=== PATIENT | female | born 1950 ===

== ENCOUNTER → 2025-04-17 13:25 | Outpatient (REF) | payer MEDICARE, SELFPAY | LOC: CLAB 13:25 | PROVIDERS: ATTENDING PHYSICIAN Surgery | DX: D50.9 Iron deficiency anemia, unspecified (principal); D49.0 Neoplasm of unspecified behavior of digestive system; K56.690 Other partial intestinal obstruction | CPT/HCPCS: 88305 ==

== ENCOUNTER 2025-04-28 06:08 | Inpatient (IN) | payer MEDICARE, SELFPAY ==
[2025-04-21 13:52] VITALS: BMI 41.2
[2025-04-21 14:19] LABS: Hematocrit 37.3 % (37.0-47.0); Hemoglobin 11.7 g/dL (12.0-16.0); Mean Corp Hgb Conc. 31.4 g/dL (33.0-37.0); Mean Corpuscular Volume 85.7 fL (81.0-99.0); Platelet Count 432 10^3/uL (130-400); Red Cell Dist. Width 14.8 % (11.5-14.5)
[2025-04-21 14:28] LABS: APTT 35.4 Sec (23.4-35.0); INR 1.02; PT 13.7 Sec (11.4-14.6)
[2025-04-21 14:43] LABS: ALT (SGPT) 17 U/L (0-35); AST (SGOT) 27 U/L (14-36); Albumin 3.6 g/dl (3.5-5.0); Alkaline Phosphatase 129 U/L (38-126); Blood Urea Nitrogen 16 mg/dl (7-17); Calcium 8.8 mg/dl (8.4-10.2); Carbon Dioxide 27 mmol/L (22-30); Chloride 99 mmol/L (98-107); Estimated Creatinine Clearance 71 ml/min; Glucose 111 mg/dl (70-99); Potassium 4.6 mmol/L (3.5-5.1); Sodium 136 mmol/L (135-145); Total Protein 6.4 g/dl (6.3-8.2); eGFR > 60.00
[2025-04-21 16:56] LABS: CEA 7.72 ng/ml
[2025-04-22 10:32] LABS: Glycohemoglobin (HgbA1c) 6.0 % (4.0-5.6)
[2025-04-28] VITALS (15 sets, daily range): BP systolic 87–118; BP diastolic 47–70; BMI 41.2
[2025-04-28] MEDS: TYLENOL 1000 MG PO (07:05)
[2025-04-28] MEDS: HEPARIN 5000 UNITS SC (07:11)
[2025-04-28] MEDS: NORMOSOL-R/PLASMALYTE-A 1000 IV ×3 (07:27→22:30)
[2025-04-28 07:40] LABS: Glucose - Point of Care 132 mg/dl (70-99)
--- NOTE | 2025-04-28 11:57 | W.OR.COLCA ---
Colon Cancer Post Op Note
Immediate Post Op
Primary Surgeon: Joseph Álvarez MD
Assistants: LEWIS Adams, KATHIA Hua CRNP, JOSE G Pardo
Pre-op Diagnosis: Cecal cancer
Post-op Diagnosis: Same
Procedure Performed: Robotic right colectomy with intracorporeal anastomosis
Anesthesia Type: GET
Specimen / Cultures: Right colon
Estimated Blood Loss: 15cc
Complications: None
Operative Findings: Bulky tumor of the cecum/acending colon
No evidence of metastatic disease
Patient's sister updated in the waiting room
Colon Resection
Colon Resection
Operation performed with curative intent: Yes
Tumor Location: Cecum
Right Hemicolectomy: Ileocolic and Right Colic
[2025-04-28 12:47] LABS: Glucose - Point of Care 188 mg/dl (70-99)
[2025-04-28] MEDS: DILAUDID 0.5 MG IV ×2 (13:10→16:18)
[2025-04-28] MEDS: TORADOL 15 MG IV ×2 (13:19→19:56)
[2025-04-28] MEDS: TYLENOL 650 MG PO ×3 (16:18→23:00)
[2025-04-28] MEDS: LIPITOR 20 MG PO (16:21)
[2025-04-28 17:29] LABS: Glucose - Point of Care 181 mg/dl (70-99)
[2025-04-28] MEDS: PEPCID 20 MG PO (19:56)
[2025-04-28] MEDS: KEFLEX 500 MG PO (19:59)
[2025-04-28 21:41] LABS: Glucose - Point of Care 215 mg/dl (70-99)
[2025-04-28] MEDS: SINGULAIR 10 MG PO (22:30)
[2025-04-28] MEDS: XALATAN OPHTHALMIC SOLUTION 1 DROP BOTH EYES (22:55)
[2025-04-28] MEDS: ANESTHETIC LOZENGE 1 LOZENGE PO (23:22)
[2025-04-29] VITALS (7 sets, daily range): BP systolic 99–133; BP diastolic 42–54; PULSE 74; O2SAT 95; BMI 42.7
[2025-04-29] MEDS: TORADOL 15 MG IV ×4 (02:30→20:25)
[2025-04-29] MEDS: TYLENOL 650 MG PO ×3 (03:05→20:24)
[2025-04-29] MEDS: DILAUDID 0.5 MG IV (06:25)
[2025-04-29 07:32] LABS: Hematocrit 30.9 % (37.0-47.0); Hemoglobin 9.7 g/dL (12.0-16.0); Mean Corp Hgb Conc. 31.4 g/dL (33.0-37.0); Mean Corpuscular Volume 86.6 fL (81.0-99.0); Nucleated Red Blood Cells % 0 %; Platelet Count 285 10^3/uL (130-400); Red Cell Dist. Width 14.6 % (11.5-14.5)
[2025-04-29 08:04] LABS: Blood Urea Nitrogen 19 mg/dl (7-17); Calcium 7.8 mg/dl (8.4-10.2); Carbon Dioxide 29 mmol/L (22-30); Chloride 98 mmol/L (98-107); Estimated Creatinine Clearance 72 ml/min; Glucose 164 mg/dl (70-99); Potassium 4.3 mmol/L (3.5-5.1); Sodium 130 mmol/L (135-145); eGFR > 60.00
[2025-04-29] MEDS: PEPCID 20 MG PO ×2 (08:11→20:24)
[2025-04-29] MEDS: ZOLOFT 100 MG PO (08:11)
[2025-04-29] MEDS: LOW STRENGTH ASPIRIN 81 MG PO (08:12)
[2025-04-29] MEDS: ANESTHETIC LOZENGE 1 LOZENGE PO (08:12)
[2025-04-29] MEDS: KEFLEX 500 MG PO ×2 (08:12→20:24)
[2025-04-29] MEDS: ZESTRIL 10 MG PO (08:13)
[2025-04-29] MEDS: ZYLOPRIM 300 MG PO (08:13)
[2025-04-29] MEDS: NORVASC 5 MG PO (08:14)
[2025-04-29] MEDS: TRIAMCINOLONE ACETONIDE 0.1% CREAM 1 APPLIC TOPICAL (08:15)
[2025-04-29] MEDS: NORMOSOL-R/PLASMALYTE-A 1000 IV ×2 (08:18→14:55)
[2025-04-29] MEDS: MYRBETRIQ EXTENDED RELEASE 50 MG PO (08:45)
[2025-04-29 08:46] LABS: Glucose - Point of Care 168 mg/dl (70-99)
--- NOTE | 2025-04-29 09:56 | W.PN.CRS1 ---
Addendum entered and electronically signed by Chris Sahni MD 04/29/25 10:07:
I saw and examined the patient independently.
The [employer]'s note was reviewed and I agree with the note, assessment and plan except where noted below.
Comment: Postoperative day 1 from a robotic right colectomy. Doing well, expected postoperative course.
DC Shields, out of bed.
Clears.
Plan as below.
Original Note:
Today's Communication / Plan
-
maintain clears
d/c shields
pain control
hold plavix at least another day
lovenox
Assessment/Plan
-
POD#1 Robotic right colectomy with intracorporeal anastomosis
WBC: 10.0, RBC 9.7 (11.7)
-Continue on clears today
-Maintain IVFs until tolerating po
-Follow labs
-Lovenox for dvt prophylaxis. TEDS/SCDS in place.
-Pain control: Tylenol/Toradol standing, Dilaudid PRN, Ultram PRN
-OOB with PT/OT
-D/C shields
-OR pathology pending
-Anticipate restarting plavix in 48 hours after OR if hemoglobin stable
-Case management for dispo planning
Subjective Data
Procedure
04/28/2025- Robotic right colectomy with intracorporeal anastomosis
Subjective Data
Date of Service: April 29, 2025
Patient states she is having some belching. Denies nausea or vomiting. No bowel function. She is sore but her pain is overall controlled.
Objective Data
-
Vital Signs
Temp Pulse Resp BP Pulse Ox
97.5 F 66 14 121/54 97
04/29/25 07:35 04/29/25 07:35 04/29/25 07:35 04/29/25 07:35 04/29/25 07:35
Intake & Output
04/28/25 04/29/25 04/30/25
06:59 06:59 06:59
Intake Total 2170 / 2170 680 / 680
Output Total 850 / 850 100 / 100
Balance 1320 / 1320 580 / 580
Intake:
Oral fluids 720 / 720 480 / 480
IV fluids (Total) 1450 / 1450
Normosol 250 250 / 250
IV piggybacks 200 / 200
Output:
Urine, Shields 850 / 850 100 / 100
Lab Results
04/29/25 06:03
04/29/25 06:03
Physical Exam
-
General: No Acute Distress and AOx3
Abdomen: Soft, Non Distended and Tender (around incision sites)
Skin: Warm and Dry
Incision: Clear, Dry, Intact
--- NOTE | 2025-04-29 11:20 | CM ---
CM following re: discharge planning.
Reviewed pt's chart, met with pt.
Pt is a 75 year old female, admitted with primary dx of Cecal cancer, s/p POD#1 Robotic right colectomy with intracorporeal anastomosis.
Pt reports she lives with brother [address], 2 steps to enter, has supportive sister who lives in [facility] and 2 daughters. Pt reports she ambulates with a walker, uses a wheelchair, has a grabber, Rollator. Pt reports she does not cook, has meals
on wheels services. Pt reports she was at [facility] in January and she preferred to go to [facility] at discharge, Other alternative SNFs options are: [facility], [facility] or [facility]. CM will make a referral to requested
SNFs after PT and OT evaluations.
PCP: Dallin Lopez
Pharmacy: [facility]
D/C plan: Preferred SNF.
CM will follow to assist pt with discharge to a preferred SNF.
[2025-04-29 12:07] LABS: Glucose - Point of Care 189 mg/dl (70-99)
[2025-04-29] MEDS: TYLENOL PO ×2 (13:24→15:58)
[2025-04-29 17:01] LABS: Glucose - Point of Care 153 mg/dl (70-99)
[2025-04-29] MEDS: LIPITOR 20 MG PO (17:33)
[2025-04-29] MEDS: LOVENOX 40 MG SC (17:35)
[2025-04-29 21:29] LABS: Glucose - Point of Care 164 mg/dl (70-99)
[2025-04-29] MEDS: SINGULAIR 10 MG PO (22:10)
[2025-04-29] MEDS: XALATAN OPHTHALMIC SOLUTION 1 DROP BOTH EYES (22:10)
[2025-04-30] MEDS: TYLENOL PO ×6 (01:00→23:57)
[2025-04-30 03:00] VITALS: BP 110/50
[2025-04-30] MEDS: TORADOL 15 MG IV ×4 (03:00→23:16)
[2025-04-30] MEDS: ULTRAM 50 MG PO (03:25)
[2025-04-30] MEDS: ANESTHETIC LOZENGE 1 LOZENGE PO ×2 (03:29→14:58)
[2025-04-30 06:00] VITALS: BMI 43.3
--- NOTE | 2025-04-30 06:00 | PTCARENOTE ---
spoke to pt about removing tele per orders and explained that she met all the criteria for removal. pt stated she felt she needed to wear tele at least overnight bc she was concerned about her cardiac activity s/p TAVR but stated she would be
willing to have it removed in the morning for day shift. Care ongoing.
[2025-04-30 07:29] VITALS: BP 127/50
[2025-04-30 07:36] LABS: Glucose - Point of Care 173 mg/dl (70-99)
[2025-04-30] MEDS: ZYLOPRIM 300 MG PO (08:21)
[2025-04-30] MEDS: NORVASC 5 MG PO (08:21)
[2025-04-30] MEDS: TYLENOL 650 MG PO ×2 (08:21→23:17)
[2025-04-30] MEDS: ZESTRIL 10 MG PO (08:21)
[2025-04-30] MEDS: LOW STRENGTH ASPIRIN 81 MG PO (08:21)
[2025-04-30] MEDS: KEFLEX 500 MG PO ×2 (08:21→23:17)
[2025-04-30] MEDS: ZOLOFT 100 MG PO (08:22)
[2025-04-30] MEDS: MYRBETRIQ EXTENDED RELEASE 50 MG PO (08:22)
[2025-04-30] MEDS: PEPCID 20 MG PO ×2 (08:22→23:17)
[2025-04-30 08:45] LABS: Hematocrit 30.4 % (37.0-47.0); Hemoglobin 9.5 g/dL (12.0-16.0); Mean Corp Hgb Conc. 31.3 g/dL (33.0-37.0); Mean Corpuscular Volume 88.1 fL (81.0-99.0); Nucleated Red Blood Cells % 0 %; Platelet Count 304 10^3/uL (130-400); Red Cell Dist. Width 14.9 % (11.5-14.5)
[2025-04-30 09:08] LABS: Blood Urea Nitrogen 18 mg/dl (7-17); Calcium 7.8 mg/dl (8.4-10.2); Carbon Dioxide 31 mmol/L (22-30); Chloride 98 mmol/L (98-107); Estimated Creatinine Clearance 82 ml/min; Glucose 149 mg/dl (70-99); Potassium 3.8 mmol/L (3.5-5.1); Sodium 134 mmol/L (135-145); eGFR > 60.00
[2025-04-30] MEDS: LASIX 20 MG PO (10:00)
[2025-04-30] MEDS: TRIAMCINOLONE ACETONIDE 0.1% CREAM 1 APPLIC TOPICAL (10:01)
--- NOTE | 2025-04-30 10:06 | W.PN.CRS1 ---
Today's Communication / Plan
-
Pain management
Assessment/Plan
-
75 yo female with cecal cancer now POD#2 Robotic right colectomy with intracorporeal anastomosis
WBC: 10.0, Hb 9.5 (9.7, 11.7)
AFVSS
Having good bowel recovery
Pain management still an issue, requiring IV narcotic
Mild LE edema
Plan:
-Advance to LRD
-IVFs off now, will give prn dosage of lasix.
-Follow labs
-Lovenox for dvt prophylaxis. TEDS ordered/SCDS when in bed
-Pain control: Tylenol/Toradol standing, Dilaudid PRN, Ultram PRN
-OOB with PT/OT
-OR pathology pending
-Continue baby ASA
-Follow blood sugars on SSI while off Ozempic
-Case management for dispo planning
Subjective Data
Procedure
04/28/2025- Robotic right colectomy with intracorporeal anastomosis
Subjective Data
Date of Service: April 30, 2025
Pt seen and examined at bedside with Dr. Sahni. Jaylon n/v. Feels like she got 'run over by truck' but felt about the same yesterday as well. Passing gas and was able to have a bm as well. Voiding without difficulty. Note BLLE mild edema
Objective Data
-
Vital Signs
Temp Pulse Resp BP Pulse Ox
97.5 F 72 17 118/58 96
04/30/25 07:29 04/30/25 08:21 04/30/25 07:29 04/30/25 10:00 04/30/25 08:35
Intake & Output
04/29/25 04/30/25 05/01/25
06:59 06:59 06:59
Intake Total 2170 / 2170 680 / 680
Output Total 850 / 850 600 / 600
Balance 1320 / 1320 80 / 80
Intake:
Oral fluids 720 / 720 480 / 480
IV fluids (Total) 1450 / 1450
Normosol 250 250 / 250
IV piggybacks 200 / 200
Output:
Urine, Gordon 850 / 850 600 / 600
Other:
Number of approximated MODERATE 1
amounts of urine
Lab Results
04/30/25 07:59
04/30/25 07:59
Physical Exam
-
General: No Acute Distress and AOx3
Abdomen: Soft, Non Distended and Tender (around incision sites)
Extremities: No Calf Tenderness and Other (mild BLLE edema)
Skin: Warm and Dry
Incision: Clear, Dry, Intact
[2025-04-30 11:39] VITALS: BP 115/46
[2025-04-30 12:41] LABS: Glucose - Point of Care 123 mg/dl (70-99)
[2025-04-30] MEDS: NOVOLOG FLEXPEN-LOW RESISTANCE SC ×2 (12:41→16:46)
[2025-04-30 15:00] VITALS: BP 105/36
[2025-04-30 16:46] LABS: Glucose - Point of Care 139 mg/dl (70-99)
[2025-04-30] MEDS: LIPITOR 20 MG PO (17:43)
[2025-04-30] MEDS: LOVENOX 40 MG SC (17:44)
[2025-04-30 19:01] VITALS: BP 132/81
[2025-04-30 21:48] LABS: Glucose - Point of Care 150 mg/dl (70-99)
[2025-04-30] MEDS: SINGULAIR 10 MG PO (23:16)
[2025-04-30] MEDS: XALATAN OPHTHALMIC SOLUTION 1 DROP BOTH EYES (23:17)
[2025-04-30 23:18] VITALS: BP 112/42
[2025-04-30] MEDS: DESENEX/MITRAZOL/ZEASORB 1 APPLIC TOPICAL (23:18)
[2025-05-01] MEDS: TORADOL IV (01:52)
[2025-05-01] MEDS: TYLENOL PO ×2 (04:29→15:58)
[2025-05-01 06:00] VITALS: BMI 42.2
[2025-05-01] MEDS: DILAUDID 0.5 MG IV (06:17)
[2025-05-01 07:45] VITALS: BP 120/47
[2025-05-01 07:45] LABS: Glucose - Point of Care 112 mg/dl (70-99)
[2025-05-01] MEDS: NOVOLOG FLEXPEN-LOW RESISTANCE SC ×2 (08:23→12:37)
[2025-05-01] MEDS: TORADOL 15 MG IV ×3 (08:28→20:10)
[2025-05-01] MEDS: MYRBETRIQ EXTENDED RELEASE 50 MG PO (08:29)
[2025-05-01] MEDS: TYLENOL 650 MG PO ×3 (08:29→20:09)
[2025-05-01] MEDS: ZESTRIL 10 MG PO (08:29)
[2025-05-01] MEDS: ZOLOFT 100 MG PO (08:29)
[2025-05-01] MEDS: PEPCID 20 MG PO ×2 (08:29→20:09)
[2025-05-01] MEDS: KEFLEX 500 MG PO ×2 (08:29→20:09)
[2025-05-01] MEDS: ANESTHETIC LOZENGE 1 LOZENGE PO ×2 (08:29→13:02)
[2025-05-01] MEDS: LOW STRENGTH ASPIRIN 81 MG PO (08:30)
[2025-05-01] MEDS: DESENEX/MITRAZOL/ZEASORB 1 APPLIC TOPICAL ×2 (08:30→20:09)
[2025-05-01] MEDS: ZYLOPRIM 300 MG PO (08:30)
[2025-05-01] MEDS: TRIAMCINOLONE ACETONIDE 0.1% CREAM 1 APPLIC TOPICAL (08:30)
[2025-05-01] MEDS: NORVASC 5 MG PO (08:30)
--- NOTE | 2025-05-01 10:02 | CM ---
Addendum entered by Leora Hoffman 05/01/25 14:05:
transfer can be arranged pending physician assessment for tomorrow.
Addendum entered by Leora Hoffman 05/01/25 14:01:
Patient accepted by [facility] for tomorrow admission. CM will update physician and patient.
Original Note:
Patient referrals sent to requested SNF options as relayed by prior CM; [facility], [facility] and [facility]. CM will await responses.
--- NOTE | 2025-05-01 10:35 | W.PN.CRS1 ---
Today's Communication / Plan
-
Discharge.
Assessment/Plan
-
POD 3.
1. tolerating LRD.
2. vitals fine.
3. incisions looked good.
4. resume Plavix and discharge. Holding on Eliquis for 30 day option on discharge due to fall risk.
Subjective Data
Procedure
04/28/2025- Robotic right colectomy with intracorporeal anastomosis
Subjective Data
Date of Service: May 01, 2025
Tolerating diet.
Objective Data
-
Vital Signs
Temp Pulse Resp BP Pulse Ox
97.5 F 66 18 120/47 94
05/01/25 07:45 05/01/25 08:30 05/01/25 07:45 05/01/25 08:30 05/01/25 07:45
Intake & Output
04/30/25 05/01/25 05/02/25
06:59 06:59 06:59
Intake Total 680 / 680 780 / 780
Output Total 600 / 600
Balance 80 / 80 780 / 780
Intake:
Oral fluids 480 / 480 780 / 780
IV piggybacks 200 / 200
Output:
Urine, Gordon 600 / 600
Other:
How many times incontinent 2
SATURATED amount urine
Number of approximated MODERATE 1 1
amounts of urine
Number of approximated LARGE 1
amounts of urine
Lab Results
04/30/25 07:59
04/30/25 07:59
Physical Exam
-
General: No Acute Distress
Chest: Clear
Cardiovascular: Regular Rate & Rhythm
Abdomen: Non Distended and Non Tender (incisional)
Extremities: No Calf Tenderness
Incision: Clear, Dry, Intact and No Skin Erythema
[2025-05-01] MEDS: PLAVIX 75 MG PO (10:55)
--- NOTE | 2025-05-01 11:04 | PN.CDI ---
CDI
- -
CDI:
Physician Documentation Request
Admit Date: 04/28/25 06:08
Dear Doctor Efren,
Please review the following and provide your response in the progress notes.
Clinical Indicators:
Height: 5'6
Weight: 261 lbs
BMI: 42.2
Other Clinical Notes: Botanical Technical Officer indicates obesity
If possible, please provide an associated diagnosis related to the abnormal BMI, such as:
Morbid obesity due to excess calories
BMI is not significant
Other (please specify)
Use of terms such as suspected, likely, concern for, or probable (associated with a specific diagnosis that is being evaluated, monitored, or treated as if it exists) are acceptable and can be coded in the inpatient setting, when documented at the
time of discharge.
Thank you,
Jacques George RN
CDI Specialist
Please use your independent medical judgment in providing your response.
[2025-05-01 11:32] LABS: Glucose - Point of Care 96 mg/dl (70-99)
[2025-05-01 15:07] VITALS: BP 122/42
[2025-05-01 16:53] LABS: Glucose - Point of Care 176 mg/dl (70-99)
[2025-05-01] MEDS: LIPITOR 20 MG PO (17:33)
[2025-05-01] MEDS: NOVOLOG FLEXPEN-LOW RESISTANCE 1 UNITS SC (17:33)
[2025-05-01] MEDS: LOVENOX 40 MG SC (17:33)
[2025-05-01] MEDS: SINGULAIR 10 MG PO (21:18)
[2025-05-01] MEDS: XALATAN OPHTHALMIC SOLUTION 1 DROP BOTH EYES (21:18)
[2025-05-01 21:46] LABS: Glucose - Point of Care 207 mg/dl (70-99)
[2025-05-01 23:00] VITALS: BP 136/50
[2025-05-02] MEDS: ULTRAM 100 MG PO (00:06)
[2025-05-02] MEDS: TYLENOL 650 MG PO ×5 (00:06→20:25)
[2025-05-02] MEDS: TORADOL 15 MG IV ×4 (01:57→20:26)
[2025-05-02] MEDS: TYLENOL PO ×2 (04:13→23:47)
[2025-05-02] MEDS: TESSALON PERLES 100 MG PO ×3 (05:09→16:41)
[2025-05-02 07:20] VITALS: BP 140/56
[2025-05-02 07:28] LABS: Glucose - Point of Care 116 mg/dl (70-99)
[2025-05-02] MEDS: ATIVAN 0.25 MG PO ×2 (08:59→22:36)
[2025-05-02] MEDS: ZYLOPRIM 300 MG PO (08:59)
[2025-05-02] MEDS: MYRBETRIQ EXTENDED RELEASE 50 MG PO (08:59)
[2025-05-02] MEDS: PEPCID 20 MG PO ×2 (09:00→20:25)
[2025-05-02] MEDS: KEFLEX 500 MG PO ×2 (09:00→20:26)
[2025-05-02] MEDS: ZESTRIL 10 MG PO (09:00)
[2025-05-02] MEDS: PLAVIX 75 MG PO (09:00)
[2025-05-02] MEDS: NORVASC 5 MG PO (09:00)
[2025-05-02] MEDS: ZOLOFT 100 MG PO (09:01)
[2025-05-02] MEDS: TRIAMCINOLONE ACETONIDE 0.1% CREAM 1 APPLIC TOPICAL (09:01)
[2025-05-02] MEDS: LOW STRENGTH ASPIRIN 81 MG PO (09:01)
[2025-05-02] MEDS: NOVOLOG FLEXPEN-LOW RESISTANCE SC (09:02)
[2025-05-02] MEDS: DESENEX/MITRAZOL/ZEASORB 1 APPLIC TOPICAL ×2 (09:02→20:27)
[2025-05-02] MEDS: ANESTHETIC LOZENGE 1 LOZENGE PO ×2 (09:03→16:41)
--- NOTE | 2025-05-02 09:19 | W.PN.CRS1 ---
Today's Communication / Plan
-
Robitussin
SNF
Assessment/Plan
-
POD 4.
1. tolerating regular.
2. vitals fine.
3. incisions looked good.
4. On Plavix and ASA Holding on Eliquis for 30 day option on discharge due to fall risk.
5. Robittusin prescribed for cough.
6. Discharge to SNF today.
Subjective Data
Procedure
04/28/2025- Robotic right colectomy with intracorporeal anastomosis
Subjective Data
Date of Service: May 02, 2025
Patient states she has a bad cough. She still has some pain but it is controlled. She is having bowel movements and flatus. Denies nausea or vomiting.
Objective Data
-
Vital Signs
Temp Pulse Resp BP Pulse Ox
98.3 F 72 16 124/47 94
05/02/25 07:20 05/02/25 09:00 05/02/25 07:20 05/02/25 09:00 05/02/25 07:20
Intake & Output
05/01/25 05/02/25 05/03/25
06:59 06:59 06:59
Intake Total 780 / 780 1440 / 1440
Balance 780 / 780 1440 / 1440
Intake:
Oral fluids 780 / 780 1440 / 1440
Other:
How many times incontinent 2
SATURATED amount urine
Number of approximated MODERATE 1 2
amounts of urine
Number of approximated LARGE 2
amounts of urine
Lab Results
04/30/25 07:59
04/30/25 07:59
Physical Exam
-
General: No Acute Distress and AOx3
Abdomen: Soft, Non Distended and Tender (mild around incisions)
Skin: Warm and Dry
Incision: Clear, Dry, Intact
--- NOTE | 2025-05-02 11:39 | CM ---
Addendum entered by Nina Huang 05/02/25 15:20:
Update- d/c cancelled.
Message sent to SNF via [facility], Spoke with [facility] via phone call, aware of cancelled d/c. Reports beds are tight and will have to review tomorrow.
Addendum entered by Nina Huang 05/02/25 11:59:
Patient scheduled for 5:00 p.m. ambulance transport, update to [facility] at [facility].
Original Note:
ZAYNAB reviewed chart, patient seen bedside, for d/c today to [facility].
Patient reports she has been coughing green mucus, reviewed with Nurse.
Patient aware will require ambulance transport, IMM verbally reviewed, provided with copy, placed in chart.
ZAYNAB spoke with [facility] at [facility], has bed available for patient.
Plan; [facility], ambulance transport
[facility]
Report: [phone]
[2025-05-02] MEDS: SAFETUSSIN DM (SUGAR/ALCOHOL FREE) 200 MG PO ×2 (12:51→20:26)
[2025-05-02 12:53] LABS: Glucose - Point of Care 162 mg/dl (70-99)
[2025-05-02] MEDS: LASIX 20 MG PO (12:53)
[2025-05-02] MEDS: NOVOLOG FLEXPEN-LOW RESISTANCE 1 UNITS SC ×2 (12:54→17:50)
[2025-05-02 15:30] VITALS: BP 147/51
--- NOTE | 2025-05-02 15:48 | CON.HOSP ---
Consultation
-
Date/Time Consultation Requested: 05/02/25
Date/Time Consultation Performed: 05/02/25
Requesting Provider: Dr Álvarez
Performing Provider: Dr Jose Chiu
Reason for Consultation: SOB
Family Physician
-
Family Physician: Dallin Lopez
Chief Complaint
-
Shortness of breath
History of Present Illness
Patient was admitted 04/28/2025 robotic right colectomy with intracorporeal anastomosis for cecal cancer.
We are consulted today for symptom of shortness of breath.
Patient states since Thursday she started to have sore throat, runny nose and cough which is getting more productive now thick phlegm with at times is green. No fever or chills. She then started to have associated shortness of breath. People have
heard her to be wheezy. Denies any chest pains, palpitations, fever or chills.
Patient says she has a history of asthma on inhalers. No history of COPD or emphysema. Lifelong non-smoker. No recent flares. Uses as needed albuterol inhaler at home.
She had TAVR in 2023. Denies history of CAD. She remembers having a cardiac catheterization prior to TAVR.. She was then told she has a bundle branch block. Preadmission EKG showed a left bundle branch block.
December this year she was admitted to hospital because she was having lower extremity edema and she was also diagnosed with cellulitis of the leg. She was told it is lymphedema. She was told that she did not have CHF at that point. She was given
Lasix and was discharged to rehab where and she had issues with low blood pressure and elevated BUN on the diuretics were discontinued. She uses as needed Lasix at home for weight gain.
Since surgery she started to notice lower extremity edema again. Her baseline weight is 255 pounds. She went up to 268 pounds then she had attributed that to fluids given in the postsurgery days. Yesterday her weight was 261 pounds.
No nausea vomiting. Tolerating diet.
Medical History
Past Medical History
Past Medical History: Reports Asthma, Cancer (Colon cancer), GERD, HTN, Hypercholesterolemia, NIDDM and Psychiatric
Additional Past Medical History:
Overactive bladder
Past Surgical History: Reports and Other (AVR in 2023)
Social History
Tobacco: Non-smoker
Alcohol: None
Drug: None
Living: With Family
Family History
Family History: Reviewed & Not Pertinent
Allergies / Home Medications
Allergies reflects when Allergies were last updated in [employer].
Home Medications with original date entered in [employer]
Allergy/Medication List:
Allergies
Allergy/AdvReac Type Severity Reaction Status Date / Time
adhesive tape Allergy Skin Tear Verified 04/28/25 07:01
povidone-iodine (From Allergy Redness Verified 04/28/25 07:01
Betadine) and itching
red dye Allergy Hives, Verified 04/28/25 07:01
Blotchy
soap Allergy Redness, Verified 04/28/25 07:01
Itchy
Home Medications
Comfry Oil 1 applic topical PRN PRN dry skin 04/27/25
Comfry Salve 1 dose topical PRN PRN dry skin 04/27/25
Instaflex 1 tab PO DAILY 04/27/25
Lymph Move 5 ml PO DAILY 04/27/25
acetaminophen 650 mg tablet,extended release 1,300 mg PO PRN PRN Pain 04/27/25
albuterol sulfate 90 mcg/actuation aerosol inhaler 2 puff inhalation PRN PRN SOB, wheezes 04/27/25
allopurinol 300 mg tablet 300 mg PO DAILY 04/27/25
amlodipine 5 mg tablet 5 mg PO DAILY 04/27/25
atorvastatin 20 mg tablet 20 mg PO QPM 04/27/25
cephalexin 500 mg tablet 500 mg PO BID 04/27/25
clopidogrel 75 mg tablet (Plavix) 75 mg PO DAILY 04/27/25
coQ10 (ubiquinol) 100 mg capsule 300 mg PO HS 04/27/25
dandelion root 0.7 ml PO DAILY 04/27/25
famotidine 20 mg tablet 20 mg PO BID 04/27/25
fluconazole 100 mg tablet 100 mg PO DAILY PRN Yeast infection 04/27/25
furosemide 20 mg tablet (Lasix) 20 mg PO DAILY PRN Lymphedema 04/27/25
latanoprost (PF) 0.005 % eye drops in a dropperette 1 drp BOTH EYES HS 04/27/25
lisinopril 10 mg tablet 10 mg PO DAILY 04/27/25
lorazepam 0.5 mg tablet 0.25 mg PO BID PRN Anxiety 04/27/25
mirabegron 50 mg tablet,extended release 24 hr (Myrbetriq) 50 mg PO DAILY 04/27/25
montelukast 10 mg tablet 10 mg PO HS 04/27/25
multivitamin with minerals (Hair,Skin and Nails tablet) 2 tab PO DAILY 04/27/25
semaglutide 0.25 mg or 0.5 mg (2 mg/3 mL) subcutaneous pen injector (Ozempic) 0.25 mg SC FR 04/27/25
sertraline 100 mg tablet 100 mg PO DAILY 04/27/25
tizanidine 2 mg tablet 2 mg PO TID PRN Spasms 04/27/25
triamcinolone acetonide 0.1 % topical cream 1 applic topical DAILY Legs 04/27/25
vit C 250 mg-vit E 90 mg-zinc 40 mg-copper 1 [id number] capsule (PreserVision AREDS-2) 1 tab PO BID 04/27/25
tramadol 50 mg tablet 50 mg PO Q4HPRN PRN pain #20 tabs 05/01/25
tramadol 50 mg tablet 50 mg PO Q6H PRN pain #20 tabs 05/01/25
Review of Systems
-
A 12 point Review of Systems was completed except as noted: Yes
Physical Exam
Vital Signs
Vital Signs
Temp Pulse Resp BP Pulse Ox
98.3 F 74 19 139/50 94
05/02/25 07:20 05/02/25 12:53 05/02/25 10:04 05/02/25 12:53 05/02/25 12:26
Physical Exam
General: No Apparent Distress
Respiratory: Wheezes (bl), Rales (Few in right base), Rhonchi (BL) and Non Labored Respirations; Negative Accessory Resp Muscle Use
Cardiac: S1/S2 and Regular Rhythm; Negative Tachycardia
GI: Soft
Musculoskeletal: Edema (BL LE 1+)
Neuro: AO x 3 and No Motor Deficits; Negative Slurred Speech or Facial Droop
Psych: Calm and Intact Judgement; Negative Confused or Agitated
Laboratory Results
-
Laboratory Results
04/30/25 07:59
04/30/25 07:59
PT 13.7 Sec (11.4-14.6) 04/21/25 13:02
INR 1.02 04/21/25 13:02
APTT 35.4 Sec (23.4-35.0) H 04/21/25 13:02
Total Bilirubin 0.8 mg/dl (0.2-1.3) 04/21/25 13:02
AST 27 U/L (14-36) 04/21/25 13:02
ALT 17 U/L (0-35) 04/21/25 13:02
Alkaline Phosphatase 129 U/L (38-126) H 04/21/25 13:02
Data Reviewed
-
Diagnostic Radiology: Report Reviewed by Me (cxr)
Impression / Plan
-
Shortness of breath with upper respiratory symptoms of sore throat, nasal congestion, cough with productive phlegm. She is also having active bronchospasm. I suspect this may be more acute bronchitis. She has underlying asthma. When you have
increased weight gain, lower extremity edema, chest x-ray raising concern for increased pulmonary vascular markings rule out concurrent CHF.
Will start checking weights daily.
Check a BMP, CBC and a BNP. Check an EKG.
Check COVID and flu
Started on empirical doxycycline. Sputum cultures.
Start scheduled DuoNebs. If continues persistent wheezing and no evidence of CHF will consider short course of steroids.
I would increase the dose of Lasix to 40 mg if elevated BNP and wt doesnt improve; follow her weights.
Hx of Asthma not COPD per pt- tx acute bronchitis as above and if no improvement add short course of steroids.
Status post right hemicolectomy for cecal cancer-continue the postop surgical care per surgical team.
Diabetes mellitus-blood sugars mostly under goal-continue sliding scale insulin.
Primary hypertension-continue with amlodipine and lisinopril.
Thank you for consultation, will continue to follow along with you.
[2025-05-02 16:10] VITALS: BP 147/51; PULSE 78; O2SAT 95
[2025-05-02 16:48] LABS: Glucose - Point of Care 186 mg/dl (70-99)
[2025-05-02] MEDS: DUONEB 3 ML INH ×2 (16:50→19:34)
[2025-05-02 17:01] LABS: Blood Urea Nitrogen 18 mg/dl (7-17); Calcium 7.9 mg/dl (8.4-10.2); Carbon Dioxide 30 mmol/L (22-30); Chloride 102 mmol/L (98-107); Estimated Creatinine Clearance 72 ml/min; Glucose 149 mg/dl (70-99); Potassium 3.6 mmol/L (3.5-5.1); Sodium 137 mmol/L (135-145); eGFR > 60.00
[2025-05-02 17:09] LABS: Troponin I < 0.012 ng/ml
[2025-05-02 17:24] LABS: COVID-19 Antigen Negative (Negative)
[2025-05-02] MEDS: LIPITOR 20 MG PO (17:48)
[2025-05-02] MEDS: LOVENOX 40 MG SC (17:48)
[2025-05-02] MEDS: VIBRAMYCIN 100 MG PO (20:25)
[2025-05-02] MEDS: SINGULAIR 10 MG PO (22:36)
[2025-05-02] MEDS: XALATAN OPHTHALMIC SOLUTION 1 DROP BOTH EYES (22:37)
[2025-05-02 22:58] LABS: Glucose - Point of Care 173 mg/dl (70-99)
[2025-05-02 23:18] VITALS: BP 128/45
[2025-05-03] MEDS: TORADOL 15 MG IV ×2 (02:02→08:39)
[2025-05-03] MEDS: TYLENOL PO (04:01)
[2025-05-03 04:12] VITALS: BMI 43.9
[2025-05-03 07:10] VITALS: BP 143/48
[2025-05-03 07:32] LABS: Glucose - Point of Care 106 mg/dl (70-99)
[2025-05-03] MEDS: DUONEB 3 ML INH ×4 (07:38→19:34)
[2025-05-03 08:20] VITALS: BP 141/55; PULSE 85; O2SAT 94
[2025-05-03] MEDS: NOVOLOG FLEXPEN-LOW RESISTANCE SC (08:29)
[2025-05-03] MEDS: PEPCID 20 MG PO ×2 (08:30→21:13)
[2025-05-03] MEDS: ZYLOPRIM 300 MG PO (08:30)
[2025-05-03] MEDS: PLAVIX 75 MG PO (08:32)
[2025-05-03] MEDS: VIBRAMYCIN 100 MG PO ×2 (08:32→21:13)
[2025-05-03] MEDS: LOW STRENGTH ASPIRIN 81 MG PO (08:32)
[2025-05-03] MEDS: ZOLOFT 100 MG PO (08:32)
[2025-05-03] MEDS: KEFLEX 500 MG PO ×2 (08:32→21:13)
[2025-05-03] MEDS: MYRBETRIQ EXTENDED RELEASE 50 MG PO (08:37)
[2025-05-03] MEDS: NORVASC 5 MG PO (08:37)
[2025-05-03] MEDS: TYLENOL 650 MG PO ×4 (08:38→21:13)
[2025-05-03] MEDS: ZESTRIL 10 MG PO (08:38)
[2025-05-03] MEDS: DESENEX/MITRAZOL/ZEASORB 1 APPLIC TOPICAL ×2 (08:39→21:19)
[2025-05-03] MEDS: TRIAMCINOLONE ACETONIDE 0.1% CREAM 1 APPLIC TOPICAL (08:39)
[2025-05-03] MEDS: ANESTHETIC LOZENGE 1 LOZENGE PO (08:41)
[2025-05-03] MEDS: TESSALON PERLES 100 MG PO (08:41)
--- NOTE | 2025-05-03 10:12 | W.PN.HOSP.TC ---
Today's Communication/Plan
-
And IV Decadron.
Continue with nebulizers and doxycycline
Add IV Lasix and follow weights daily.
Assessment / Plan
Assessment / Plan
Shortness of breath with upper respiratory symptoms of sore throat, nasal congestion, cough with productive phlegm. She is also having active bronchospasm. I suspect this may be more acute bronchitis with ashtma flare.
Hx of Asthma not COPD per pt.
Seen benefit of nebulizers but still persistent with an ongoing upper respiratory symptoms.
Continue with nebulizers and doxycycline. Add steroids and follow the progress.
Possible mild CHF component with preserved EF. Patient weight is about her baseline weight of 255 pounds. Chest x-ray raises concern for increased interstitial markings. BNP is just about the normal range for her age. EKG with no acute ST-T
changes compared to before. Troponins were negative. No chest pain or anginal symptoms. With switch to IV Lasix and follow weights daily.
Status post right hemicolectomy for cecal cancer-continue the postop surgical care per surgical team.
Diabetes mellitus-blood sugars mostly under goal-continue sliding scale insulin.
Primary hypertension-continue with amlodipine and lisinopril.
Would hold on discharge today and see the response to steroids and IV Lasix.
Discussed with the general surgery.
Anticipated Discharge: 24 - 48 hours
Subjective/Interval History
-
Date of Service: May 03, 2025
Patient still with ongoing cough and wheezing. Denies shortness of breath.
Still thick phlegm.
Denies any chest pain, palpitations. No nausea vomiting. No fever or chills.
Objective Data
-
Vital Signs:
Vital Signs
Temp Pulse Resp BP Pulse Ox
98.1 F 73 18 143/48 95
05/03/25 07:10 05/03/25 08:38 05/03/25 07:39 05/03/25 08:38 05/03/25 07:39
I&O
05/02/25 05/03/25 05/04/25
06:59 06:59 06:59
Intake Total 1440 / 1440 1220 / 1220
Balance 1440 / 1440 1220 / 1220
Physical Exam
-
General: No Apparent Distress
Respiratory: Wheezes (Extensive bilateral wheeze) and Non Labored Respirations; Negative Accessory Resp Muscle Use
Cardiac: Regular Rhythm and S1/S2; Negative Tachycardic
GI: Soft
Musculoskeletal: Edema, Right Lower Extrem and Edema, Left Lower Extrem (1+ BL)
Neuro: AO x 3
Psych: Calm; Negative Confused
Data Reviewed
-
Medical Tests (Nuc Med, Echo etc): Report Reviewed by me (EKG)
Labs: Labs Reviewed by me
--- NOTE | 2025-05-03 11:25 | W.PN.CRS1 ---
Today's Communication / Plan
-
Lasix and IV steroids for bronchospasm
Surgically doing well
Hold rehab another day
Assessment/Plan
-
POD 5.
1. tolerating regular.
2. vitals fine.
3. incisions looked good.
4. On Plavix and ASA Holding on Eliquis for 30 day option on discharge due to fall risk.
5. Appreciate hospitalist for bronchospasm workup. She will require IV steroids as well as IV Lasix.
6. Hold discharge to rehab another day until bronchospasm has resolved.
Subjective Data
Procedure
04/28/2025- Robotic right colectomy with intracorporeal anastomosis
Subjective Data
Date of Service: May 03, 2025
Patient states she is wheezing and feels weak. She has a cough that is green and phlegm. Otherwise she is eating okay and her abdominal pain is controlled.
Objective Data
-
Vital Signs
Temp Pulse Resp BP Pulse Ox
98.1 F 73 18 143/48 95
05/03/25 07:10 05/03/25 08:38 05/03/25 07:39 05/03/25 08:38 05/03/25 07:39
Intake & Output
05/02/25 05/03/25 05/04/25
06:59 06:59 06:59
Intake Total 1440 / 1440 1220 / 1220
Balance 1440 / 1440 1220 / 1220
Intake:
Oral fluids 1440 / 1440 1220 / 1220
Other:
Number of approximated MODERATE 2 1
amounts of urine
Number of approximated LARGE 2
amounts of urine
Lab Results
04/30/25 07:59
05/02/25 16:34
Physical Exam
-
General: No Acute Distress and AOx3
Abdomen: Soft, Non Distended and Tender
Skin: Warm
Incision: Clear, Dry, Intact
[2025-05-03] MEDS: DECADRON 4 MG IV ×2 (11:36→21:17)
[2025-05-03] MEDS: LASIX 40 MG IV (11:37)
[2025-05-03] MEDS: NOVOLOG FLEXPEN-LOW RESISTANCE 1 UNITS SC ×2 (12:21→17:45)
[2025-05-03 12:23] LABS: Glucose - Point of Care 174 mg/dl (70-99)
--- NOTE | 2025-05-03 14:00 | CM ---
ZAYNAB Kirk connected with Hospitalist Team who said that patient 'might' be ready tomorrow. ZAYNAB Kirk spoke to lianasrin Mueller at [facility] #[phone] who said they have a bed today, but not sure about tomorrow so Case Management should call
then. ZAYNAB Kirk informed the Hospitalist Team to let ZAYNAB know when patient is ready for sure. PLAN: SNF when ready at [facility].
[2025-05-03 15:25] VITALS: BP 155/59
[2025-05-03 16:07] LABS: Glucose - Point of Care 180 mg/dl (70-99)
[2025-05-03] MEDS: LOVENOX 40 MG SC (17:46)
[2025-05-03] MEDS: LIPITOR 20 MG PO (17:48)
[2025-05-03] MEDS: SINGULAIR 10 MG PO (21:13)
[2025-05-03] MEDS: XALATAN OPHTHALMIC SOLUTION 1 DROP BOTH EYES (21:19)
[2025-05-03 21:45] LABS: Glucose - Point of Care 318 mg/dl (70-99)
[2025-05-03] MEDS: ATIVAN 0.25 MG PO (22:58)
[2025-05-04] MEDS: NOVOLOG FLEXPEN 4 UNITS SC
[2025-05-04 00:06] VITALS: BP 125/53
[2025-05-04] MEDS: TESSALON PERLES 100 MG PO ×2 (01:11→21:02)
[2025-05-04] MEDS: SAFETUSSIN DM (SUGAR/ALCOHOL FREE) 200 MG PO ×2 (01:14→21:02)
[2025-05-04] MEDS: DUONEB 3 ML INH ×4 (02:26→15:55)
[2025-05-04] MEDS: ULTRAM 50 MG PO (02:58)
[2025-05-04] MEDS: TYLENOL 650 MG PO ×7 (04:16→23:26)
[2025-05-04] MEDS: DECADRON 4 MG IV ×3 (04:16→20:55)
[2025-05-04] MEDS: ANESTHETIC LOZENGE 1 LOZENGE PO ×2 (04:20→21:07)
[2025-05-04 05:15] VITALS: BMI 43.5
[2025-05-04 07:18] VITALS: BP 134/61
[2025-05-04 07:37] LABS: Glucose - Point of Care 195 mg/dl (70-99)
[2025-05-04 08:26] LABS: Blood Urea Nitrogen 16 mg/dl (7-17); Calcium 8.3 mg/dl (8.4-10.2); Carbon Dioxide 28 mmol/L (22-30); Chloride 103 mmol/L (98-107); Estimated Creatinine Clearance 94 ml/min; Glucose 216 mg/dl (70-99); Potassium 4.4 mmol/L (3.5-5.1); Sodium 135 mmol/L (135-145); eGFR > 60.00
[2025-05-04] MEDS: NOVOLOG FLEXPEN-LOW RESISTANCE 1 UNITS SC (08:38)
[2025-05-04] MEDS: KEFLEX 500 MG PO ×2 (08:39→20:56)
[2025-05-04] MEDS: MYRBETRIQ EXTENDED RELEASE 50 MG PO (08:39)
[2025-05-04] MEDS: ZYLOPRIM 300 MG PO (08:39)
[2025-05-04] MEDS: ZOLOFT 100 MG PO (08:40)
[2025-05-04] MEDS: VIBRAMYCIN 100 MG PO ×2 (08:40→20:56)
[2025-05-04] MEDS: LOW STRENGTH ASPIRIN 81 MG PO (08:40)
[2025-05-04] MEDS: NORVASC 5 MG PO (08:40)
[2025-05-04] MEDS: ZESTRIL 10 MG PO (08:40)
[2025-05-04] MEDS: PLAVIX 75 MG PO (08:41)
[2025-05-04] MEDS: PEPCID 20 MG PO ×2 (08:41→20:56)
[2025-05-04] MEDS: LASIX 40 MG IV (08:41)
[2025-05-04] MEDS: TRIAMCINOLONE ACETONIDE 0.1% CREAM 1 APPLIC TOPICAL (08:44)
[2025-05-04] MEDS: DESENEX/MITRAZOL/ZEASORB 1 APPLIC TOPICAL ×2 (08:45→20:55)
[2025-05-04] MEDS: ULTRAM 100 MG PO ×2 (09:17→17:35)
--- NOTE | 2025-05-04 09:40 | W.PN.HOSP.TC ---
Today's Communication/Plan
-
Continue with doxycycline, DuoNebs, IV steroids
Continue with IV Lasix
Ultrasound of the legs and if negative Иван wrap legs
Add Mucinex and Acapella
Assessment / Plan
Assessment / Plan
Shortness of breath with upper respiratory symptoms of sore throat, nasal congestion, cough with productive phlegm. She is also having active bronchospasm. I suspect this may be more acute bronchitis with ashtma flare.
Hx of Asthma not COPD per pt.
Ongoing wheeze but not hypoxic. No acute respiratory distress.
Continue with nebulizers and doxycycline. Added IV steroids-continue the current dose without taper with persistent symptoms.
Add scheduled Mucinex. Add Acapella.
Possible mild CHF component with preserved EF. Patient weight is about her baseline weight of 255 pounds. Chest x-ray raises concern for increased interstitial markings. BNP is just about the normal range for her age. EKG with no acute ST-T
changes compared to before. Troponins were negative. No chest pain or anginal symptoms. Added IV Lasix -improving wt. CW current dose.
BL LE edema - suspect combination of chronic dependent edema/lymphedema and CHF. Check US leg as she complaints of pain in right leg. On chronic ABX prophylaxis for cellulitis of legs. If US leg neg , иван wrap legs for edema management
Status post right hemicolectomy for cecal cancer-continue the postop surgical care per surgical team.
Diabetes mellitus-blood sugars mostly under goal-continue sliding scale insulin.
Primary hypertension-continue with amlodipine and lisinopril.
Hold discharge and continue with above treatments
DELMI RN and general surgery.
Anticipated Discharge: > 48 hours
Subjective/Interval History
-
Date of Service: May 04, 2025
Improved weight. She last 3 pound since yesterday. Still feels her legs are quite swollen. She has pain in the right leg compared to left.
Still with cough, productive phlegm, wheezing. No chest pain or palpitations. No fevers.
Denies nausea vomiting.
Objective Data
-
Labs:
Laboratory Results
05/04/25
06:40
Sodium 135
Potassium 4.4
Chloride 103
Carbon Dioxide 28
BUN 16
Creatinine 0.7
Glucose 216 H
Calcium 8.3 L
Vital Signs:
Vital Signs
Temp Pulse Resp BP Pulse Ox
97.8 F 91 18 134/61 95
05/04/25 07:18 05/04/25 07:27 05/04/25 07:27 05/04/25 07:18 05/04/25 07:27
I&O
05/03/25 05/04/25 05/05/25
06:59 06:59 06:59
Intake Total 1220 / 1220 1800 / 1800
Output Total 300 / 300
Balance 1220 / 1220 1500 / 1500
Physical Exam
-
General: No Apparent Distress
Respiratory: Wheezes (Persistent expiratory wheeze bilaterally) and Non Labored Respirations; Negative Crackles or Accessory Resp Muscle Use
Cardiac: Regular Rhythm and S1/S2; Negative Tachycardic
GI: Soft
Musculoskeletal: Edema, Right Lower Extrem (2+) and Edema, Left Lower Extrem (2+)
Neuro: AO x 3
Psych: Calm; Negative Confused
Data Reviewed
-
Labs: Labs Reviewed by me
--- NOTE | 2025-05-04 10:09 | W.PN.CRS1 ---
Today's Communication / Plan
-
continue diet
OOB
IV steriods/lasix per hospitalist
RLE doppler pending
wound RN
Assessment/Plan
-
POD #6, robotic right colectomy with acute bronchitis
Afebrile, vitals normal
1. tolerating regular.
2. Appreciate hospitalist regarding acute bronchitis treatment. On IV steroids and 40mg IV lasix.
4. On Plavix and ASA Holding on Eliquis for 30 day option on discharge due to fall risk.
5. OOB as tolerated with PT/OT
6. Wound RN for RLE sore. LE doppler ordered.
7. Hold discharge to rehab another day until bronchospasm has resolved.
Subjective Data
Procedure
04/28/2025- Robotic right colectomy with intracorporeal anastomosis
Subjective Data
Date of Service: May 04, 2025
Patient states she is still coughing a lot and didn't sleep last night. She also notes a sore on her RLE. She has no abdominal pain. She denies nasuea or vomiting. She is tolerating a diet.
Objective Data
-
Vital Signs
Temp Pulse Resp BP Pulse Ox
97.8 F 91 18 134/61 95
05/04/25 07:18 05/04/25 07:27 05/04/25 07:27 05/04/25 07:18 05/04/25 07:27
Intake & Output
05/03/25 05/04/25 05/05/25
06:59 06:59 06:59
Intake Total 1220 / 1220 1800 / 1800
Output Total 300 / 300
Balance 1220 / 1220 1500 / 1500
Intake:
Oral fluids 1220 / 1220 1800 / 1800
Output:
Urine, Voided 300 / 300
Other:
How many times incontinent 1
SATURATED amount urine
Number of approximated MODERATE 1 2
amounts of urine
Lab Results
04/30/25 07:59
05/04/25 06:40
Physical Exam
-
General: No Acute Distress and AOx3
Abdomen: Soft, Non Distended and Non Tender
Skin: Warm and Dry
Incision: Clear, Dry, Intact
[2025-05-04] MEDS: MUCINEX 600 MG PO ×2 (10:28→20:56)
[2025-05-04 11:31] LABS: Glucose - Point of Care 321 mg/dl (70-99)
--- NOTE | 2025-05-04 11:45 | WOUNDNOTE ---
COCCYX CREASE/GLUTEAL CLEFT
--- NOTE | 2025-05-04 12:27 | WOUNDNOTE ---
[facility] RN note: Patient admitted with s/p R colon resection.
See H&P for complete history.
PMH: bilateral foot reconstruction, obesity, asthma, LE lymphedema (she uses knee high Иван wraps at home), IBS, cecal cancer, urinary incontinence, arthritis, gout, skin cancer.
Wound Location and type/assessment: Patient has .3cm dry circular scab on RLE. +LE edema. R posterior lower calf with red fragile skin suspect r/t venous edema. +Pedal pulses. Coccyx/gluteal cleft MASD. Outer lower abdominal skin fold mild MASD.
Miconazole powder being used.
Appetite: on regular diet. Ate a good breakfast.
Pressure redistribution devices in place: [employer]. Patient transfers from chair to commode with walker and supervision.
Plan: Protective small silicone border foam applied to RLE very small dry scab. Miconazole powder to lower abdominal/groin, nancy/buttocks skin. Barrier ointment to nancy skin. Sacral shaped silicone border foam maintained on sacrum. Skin on heels
intact. Air chair cushion placed in recliner chair. t/c SPD and ordered bariatric air chair cushion.
Will confirm orders with Marsha Ray or Dr. Chiu and updated GISEL Amaya.
Care plan to be updated. Will sign off. Call if needed.
Note to case management requested for discharge: VN if goes home when discharged.
Recommend follow up at wound care center upon discharge if needed.
[2025-05-04] MEDS: NOVOLOG FLEXPEN-LOW RESISTANCE 4 UNITS SC (12:49)
--- NOTE | 2025-05-04 14:51 | PN.CDI ---
CDI
- -
CDI:
Physician Documentation Request
Admit Date: 04/28/25 06:08
Dear Doctor Aram,
Please review the following and provide your response in the progress notes.
Clinical Indicators:
- 05/04 PN 'Possible mild CHF component with preserved EF'
- 'BL LE edema - suspect combination of chronic dependent edema/lymphedema and CHF'
- 40mg IV Lasix given x 2
- proBNP 1280
Please clarify which of the following accurately represents the acuity of the HFpEF
Acute HFpEF
Acute on chronic HFpEF
Other (please specify)
Use of terms such as suspected, likely, concern for, or probable (associated with a specific diagnosis that is being evaluated, monitored, or treated as if it exists) are acceptable and can be coded in the inpatient setting, when documented at the
time of discharge.
Thank you,
Jacques George RN
CDI Specialist
Please use your independent medical judgment in providing your response.
[2025-05-04 15:26] VITALS: BP 115/54
[2025-05-04 16:49] LABS: Glucose - Point of Care 295 mg/dl (70-99)
[2025-05-04] MEDS: NOVOLOG FLEXPEN-LOW RESISTANCE 3 UNITS SC (17:23)
[2025-05-04] MEDS: LOVENOX 40 MG SC (17:23)
[2025-05-04] MEDS: LIPITOR 20 MG PO (17:23)
[2025-05-04] MEDS: DUONEB INH (20:09)
[2025-05-04] MEDS: XALATAN OPHTHALMIC SOLUTION 1 DROP BOTH EYES (21:02)
[2025-05-04] MEDS: SINGULAIR 10 MG PO (21:02)
--- NOTE | 2025-05-04 21:50 | PTCARENOTE ---
Pt bedtime blood sugar 304. ANTONIO jones notified and aware. No coverage ordered at this time. Care ongoing.
[2025-05-04 21:51] LABS: Glucose - Point of Care 304 mg/dl (70-99)
[2025-05-04 23:00] VITALS: BP 135/59
[2025-05-05] MEDS: DUONEB 3 ML INH ×3 (01:22→12:11)
[2025-05-05] MEDS: DECADRON 4 MG IV ×2 (03:38→13:28)
[2025-05-05] MEDS: TYLENOL 650 MG PO ×3 (03:38→18:51)
[2025-05-05 05:11] VITALS: BMI 43.0
[2025-05-05 07:10] VITALS: BP 138/74
[2025-05-05 07:42] LABS: Glucose - Point of Care 164 mg/dl (70-99)
[2025-05-05] MEDS: TYLENOL PO ×2 (08:00→20:33)
[2025-05-05 08:03] LABS: Blood Urea Nitrogen 19 mg/dl (7-17); Calcium 8.7 mg/dl (8.4-10.2); Carbon Dioxide 30 mmol/L (22-30); Chloride 100 mmol/L (98-107); Estimated Creatinine Clearance 93 ml/min; Glucose 173 mg/dl (70-99); Potassium 5.0 mmol/L (3.5-5.1); Sodium 136 mmol/L (135-145); eGFR > 60.00
[2025-05-05 08:24] LABS: Hematocrit 32.7 % (37.0-47.0); Hemoglobin 9.7 g/dL (12.0-16.0); Mean Corp Hgb Conc. 29.7 g/dL (33.0-37.0); Mean Corpuscular Volume 91.1 fL (81.0-99.0); Platelet Count 389 10^3/uL (130-400); Red Cell Dist. Width 15.7 % (11.5-14.5)
--- NOTE | 2025-05-05 08:41 | W.PN.CRS1 ---
Today's Communication / Plan
-
acute bronchitis treatment per hospitalist
looking good from surgical perspective
dispo once cleared by hospitalist
Assessment/Plan
-
POD #7, robotic right colectomy with acute bronchitis
Afebrile, vitals normal
1. tolerating regular.
2. Appreciate hospitalist regarding acute bronchitis treatment. On IV steroids and 40mg IV lasix.
4. On Plavix and ASA Holding on Eliquis for 30 day option on discharge due to fall risk.
5. OOB as tolerated with PT/OT
6. Wound RN for RLE sore. LE doppler negative.
7. Hold discharge to rehab another day until bronchospasm has resolved.
Subjective Data
Procedure
04/28/2025- Robotic right colectomy with intracorporeal anastomosis
Subjective Data
Date of Service: May 05, 2025
Patient states she has some mucus and cough still. She had a lot of phlegm yesterday, which is her main complaint. Her abdomen is sore but manageable. Denies nausea or vomiting. Tolerating a diet. Has bowel function.
Objective Data
-
Vital Signs
Temp Pulse Resp BP Pulse Ox
97.6 F 80 16 135/59 95
05/04/25 23:00 05/05/25 07:15 05/05/25 07:15 05/04/25 23:00 05/04/25 23:00
Intake & Output
05/04/25 05/05/25 05/06/25
06:59 06:59 06:59
Intake Total 1800 / 1800 2640 / 2640
Output Total 300 / 300
Balance 1500 / 1500 2640 / 2640
Intake:
Oral fluids 1800 / 1800 2640 / 2640
Output:
Urine, Voided 300 / 300
Other:
How many times incontinent 1 2
SATURATED amount urine
Number of approximated MODERATE 2 1
amounts of urine
Number of approximated LARGE 2
amounts of urine
Number of unmeasured liquid
stools
Rectum 1
Lab Results
05/05/25 06:33
05/05/25 06:33
Physical Exam
-
General: No Acute Distress and AOx3
Abdomen: Soft, Non Distended and Non Tender
Skin: Warm and Dry
Incision: Clear, Dry, Intact
[2025-05-05] MEDS: DESENEX/MITRAZOL/ZEASORB 1 APPLIC TOPICAL ×2 (10:15→22:31)
[2025-05-05] MEDS: NOVOLOG FLEXPEN-LOW RESISTANCE 1 UNITS SC (10:15)
[2025-05-05] MEDS: HYDROPHOR 1 APPLIC TOPICAL (10:16)
[2025-05-05] MEDS: ZYLOPRIM 300 MG PO (10:17)
[2025-05-05] MEDS: KEFLEX 500 MG PO ×2 (10:17→20:33)
[2025-05-05] MEDS: MUCINEX 600 MG PO ×2 (10:17→20:33)
[2025-05-05] MEDS: VIBRAMYCIN 100 MG PO ×2 (10:18→20:33)
[2025-05-05] MEDS: MYRBETRIQ EXTENDED RELEASE 50 MG PO (10:18)
[2025-05-05] MEDS: ZESTRIL 10 MG PO (10:18)
[2025-05-05] MEDS: PLAVIX 75 MG PO (10:18)
[2025-05-05] MEDS: PEPCID 20 MG PO ×2 (10:18→20:33)
[2025-05-05] MEDS: LOW STRENGTH ASPIRIN 81 MG PO (10:18)
[2025-05-05] MEDS: ZOLOFT 100 MG PO (10:18)
[2025-05-05] MEDS: NORVASC 5 MG PO (10:18)
[2025-05-05] MEDS: LASIX 40 MG IV (10:19)
[2025-05-05] MEDS: TRIAMCINOLONE ACETONIDE 0.1% CREAM 1 APPLIC TOPICAL (10:19)
[2025-05-05] MEDS: ULTRAM 100 MG PO ×2 (10:29→22:30)
[2025-05-05] MEDS: ANESTHETIC LOZENGE 1 LOZENGE PO ×2 (10:29→20:33)
[2025-05-05] MEDS: TESSALON PERLES 100 MG PO (10:30)
--- NOTE | 2025-05-05 11:28 | CM ---
Addendum entered by Marcie Herring 05/08/25 10:22:
Consult received for nebulizer - pt will return to SNF at discharge and nebulizer will be provided by the facility.
Original Note:
SNF referral sent to [facility]. No beds available for today, however it appears that patient is not ready for discharge to SNF for >48 hours.
Plan: CM to follow up for bed availability at [facility] when medically cleared for discharge.
--- NOTE | 2025-05-05 11:55 | W.PN.HOSP.TC ---
Today's Communication/Plan
-
Continue with IV steroids
Continue with IV Lasix
Continue with antibiotics
Consult pulmonary
Assessment / Plan
Assessment / Plan
Shortness of breath with upper respiratory symptoms of sore throat, nasal congestion, cough with productive phlegm. She is also having active bronchospasm. I suspect this may be more acute bronchitis with ashtma flare.
Hx of Asthma not COPD per pt.
Ongoing wheeze and coughing ;no hypoxia.
Continue with nebulizers and doxycycline. cw IV steroids-continue the current dose without taper with persistent symptoms.Obtain pulmonary input.
cw scheduled Mucinex. cw Acapella.
Possible mild CHF component with preserved EF. Patient weight is about her baseline weight of 255 pounds. Chest x-ray raises concern for increased interstitial markings. BNP is just about the normal range for her age. EKG with no acute ST-T
changes compared to before. Troponins were negative. No chest pain or anginal symptoms. Added IV Lasix -improving wt. loss 3 more pounds in 24 hours. Repeat chest x-ray today shows small bilateral pleural effusion but no further vascular
congestive changes. CW current dose IV Lasix. BMP is okay
BL LE edema - suspect combination of chronic dependent edema/lymphedema and CHF. On chronic ABX prophylaxis for cellulitis of legs. US leg neg , rigo wrap legs for edema management.
Status post right hemicolectomy for cecal cancer-continue the postop surgical care per surgical team.
Diabetes mellitus-blood sugars mostly under goal-continue sliding scale insulin.
Primary hypertension-continue with amlodipine and lisinopril.
Hold discharge and continue with above treatments
DW general surgery
Anticipated Discharge: > 48 hours
Subjective/Interval History
-
Date of Service: May 05, 2025
Patient with persistent cough and still productive of small amount of thick phlegm. Denies any fever or chills.
Denies any chest pains or palpitation.
Objective Data
-
Labs:
Laboratory Results
05/05/25
06:33
WBC 11.9 H
Hgb 9.7 L
Hct 32.7 L
Plt Count 389 D
Sodium 136
Potassium 5.0
Chloride 100
Carbon Dioxide 30
BUN 19 H
Creatinine 0.7
Glucose 173 H
Calcium 8.7
Vital Signs:
Vital Signs
Temp Pulse Resp BP Pulse Ox
97.7 F 80 16 138/74 96
05/05/25 07:10 05/05/25 07:15 05/05/25 07:15 05/05/25 07:10 05/05/25 07:10
I&O
05/04/25 05/05/25 05/06/25
06:59 06:59 06:59
Intake Total 1800 / 1800 2640 / 2640 660 / 660
Output Total 300 / 300
Balance 1500 / 1500 2640 / 2640 660 / 660
Physical Exam
-
General: No Apparent Distress
HEENT: Moist Mucous Membranes
Respiratory: Wheezes (BL expiratory) and Non Labored Respirations; Negative Accessory Resp Muscle Use
Cardiac: Regular Rhythm, S1/S2 and Carotid Bruits
Musculoskeletal: Edema, Right Lower Extrem and Edema, Left Lower Extrem
Neuro: AO x 3
Psych: Calm
Data Reviewed
-
Diagnostic Radiology: Report Reviewed by me (cxr)
Labs: Labs Reviewed by me
[2025-05-05 12:31] LABS: Glucose - Point of Care 148 mg/dl (70-99)
--- NOTE | 2025-05-05 12:44 | CON.PUL ---
Consultation
Consultation Request
Date/Time Consultation Requested: 05/05/2025
Date/Time Consultation Performed: 05/05/2025
Medical History
-
Chief Complaint: Dyspnea
History of Present Illness:
Patient is a very pleasant 75 old female with known history of asthma and newly diagnosed cecal cancer who was admitted to the hospital electively for a robotic right colectomy with anastomosis. Postop, patient developed respiratory symptoms
including sore throat, runny nose and cough with thick phlegm production which occasionally was green. Hospitalist consultation was requested and patient was started on treatment for eczema exacerbation, bronchitis as well as possible volume
overload. In view of persistent symptoms, pulmonary consultation was requested for further input.
Patient reports history of asthma since age 41, mild intermittent at baseline controlled with Singulair and as needed albuterol. Has not had a hospitalization in the last 10 years related to asthma exacerbation. Also reported history of lower
extremity lymphedema and recurrent cellulitis, on chronic suppressive therapy with Keflex.
Past Medical History
Past Medical History: Reports Asthma, Cancer (Colon cancer), GERD, HTN, Hypercholesterolemia, NIDDM
Additional Past Medical History:
Overactive bladder
Past Surgical History: Reports and Other (TAVR in 2023)
Social History
Tobacco: Non-smoker
Alcohol: None
Drug: None
Living: With Family
Family History
Family History: Reviewed & Not Pertinent
Allergies / Home Medications
Allergies
Allergy/AdvReac Type Severity Reaction Status Date / Time
adhesive tape Allergy Skin Tear Verified 04/28/25 07:01
povidone-iodine (From Allergy Redness Verified 04/28/25 07:01
Betadine) and itching
red dye Allergy Hives, Verified 04/28/25 07:01
Blotchy
soap Allergy Redness, Verified 04/28/25 07:01
Itchy
Home Medications
�Medication �Instructions �Recorded �Confirmed �Last Taken �Type
Comfry Oil 1 applic topical PRN PRN dry skin 04/27/25 04/28/25 04/27/25 History
Comfry Salve 1 dose topical PRN PRN dry skin 04/27/25 04/28/25 04/27/25 History
Instaflex 1 tab PO DAILY 04/27/25 04/27/25 Unknown History
Lymph Move 5 ml PO DAILY 04/27/25 04/27/25 Unknown History
acetaminophen 650 mg 1,300 mg PO PRN PRN Pain 04/27/25 04/27/25 Unknown History
tablet,extended release
albuterol sulfate 90 mcg/actuation 2 puff inhalation PRN PRN SOB, 04/27/25 04/27/25 Unknown History
aerosol inhaler wheezes
allopurinol 300 mg tablet 300 mg PO DAILY 04/27/25 04/28/25 04/27/25 08:00 History
amlodipine 5 mg tablet 5 mg PO DAILY 04/27/25 04/28/25 04/27/25 08:00 History
atorvastatin 20 mg tablet 20 mg PO QPM 04/27/25 04/28/25 04/27/25 08:00 History
cephalexin 500 mg tablet 500 mg PO BID 04/27/25 04/28/25 04/27/25 18:00 History
clopidogrel 75 mg tablet (Plavix) 75 mg PO DAILY 04/27/25 04/28/25 04/21/25 History
coQ10 (ubiquinol) 100 mg capsule 300 mg PO HS 04/27/25 04/28/25 04/27/25 08:00 History
dandelion root 0.7 ml PO DAILY 04/27/25 04/27/25 Unknown History
famotidine 20 mg tablet 20 mg PO BID 04/27/25 04/28/25 04/27/25 18:00 History
fluconazole 100 mg tablet 100 mg PO DAILY PRN Yeast infection 04/27/25 04/28/25 04/27/25 08:00 History
furosemide 20 mg tablet (Lasix) 20 mg PO DAILY PRN Lymphedema 04/27/25 04/28/25 Unknown History
latanoprost (PF) 0.005 % eye drops 1 drp BOTH EYES HS 04/27/25 04/27/25 Unknown History
in a dropperette
lisinopril 10 mg tablet 10 mg PO DAILY 04/27/25 04/28/25 04/27/25 08:00 History
lorazepam 0.5 mg tablet 0.25 mg PO BID PRN Anxiety 04/27/25 04/28/25 04/27/25 17:00 History
mirabegron 50 mg tablet,extended 50 mg PO DAILY 04/27/25 04/28/25 04/27/25 08:00 History
release 24 hr (Myrbetriq)
montelukast 10 mg tablet 10 mg PO HS 04/27/25 04/28/25 04/27/25 08:00 History
multivitamin with minerals 2 tab PO DAILY 04/27/25 04/28/25 04/22/25 History
(Hair,Skin and Nails tablet)
semaglutide 0.25 mg or 0.5 mg (2 0.25 mg SC FR 04/27/25 04/27/25 04/17/25 History
mg/3 mL) subcutaneous pen injector
(Ozempic)
sertraline 100 mg tablet 100 mg PO DAILY 04/27/25 04/28/25 04/27/25 08:00 History
tizanidine 2 mg tablet 2 mg PO TID PRN Spasms 04/27/25 04/28/25 04/27/25 20:00 History
triamcinolone acetonide 0.1 % 1 applic topical DAILY Legs 04/27/25 04/28/25 04/27/25 11:00 History
topical cream
vit C 250 mg-vit E 90 mg-zinc 40 1 tab PO BID 04/27/25 04/28/25 04/27/25 History
mg-copper 1 [id number]
capsule (PreserVision AREDS-2)
tramadol 50 mg tablet 50 mg PO Q4HPRN PRN pain #20 tabs 05/01/25 Unknown Rx
tramadol 50 mg tablet 50 mg PO Q6H PRN pain #20 tabs 05/01/25 04/28/25 04/27/25 03:30 Rx
Review of Systems
-
Hematologic/Lymphatic: Other (All 14 systems reviewed and negative except as stated above in the history of present illness.)
Vitals / Labs / Diagnostic Testing
Vital Signs
Temp Pulse Resp BP Pulse Ox
97.7 F 80 16 138/74 96
05/05/25 07:10 05/05/25 12:12 05/05/25 12:12 05/05/25 07:10 05/05/25 07:10
Lab Data
05/05/25 06:33
05/05/25 06:33
Microbiology
05/02/25 16:34 Nasal Swab Influenza Types A & B (RICKY) - Final
Negative for Influenza A & B, NAAT
Negative results must be combined with clinical observations
and patient history.
Nucleic Acid Amplification test (NAAT)performed on the
[employer] platform.
Diagnostic Testing:
Physical Exam
-
HEENT: Normocephalic
Cardiovascular: S1/S2 and Peripheral Edema
Respiratory: Wheeze and Rhonchi
GI: Soft and Non Distended
Neurology: Awake and Alert
Skin: Warm
General: Comfortable
Assessment
-
In brief, 75 old female s/p right hemicolectomy for newly detected cecal cancer, developed postop worsening pedal edema along with increasing cough, greenish expectoration and wheezing. Pulmonary service was consulted for further input.
#1. Dyspnea
- Multifactorial. Patient has b/l wheezing consistent with asthma exacerbation, also has purulent bronchitis and is volume overloaded on exam
- Continue diuresis, bronchodilators and Antibiotics.
#2. Acute exacerbation of Asthma
- Continue Singulair
- Add Budesonide Neb BID
- Start Albuterol qid nebulized. In view of thick and difficult to expectorate phlegm, will d/c Ipratropium
- Add 3% NS Nebulized BID for thick and difficult to expectorate mucous
- Continue Mucinex BID
- With recent surgery, minimize steroids. Added inhaled budesonide, d/c IV Dexamethasone and Start Po Prednisone in AM with the goal to use lowest dose for shortest duration
#3. Acute purulent bronchitis
- Patient has new onset greenish expectoration, thick
- No obvious pneumonic infiltrate on CXR
- Continue Doxycycline. Check Sputum culture.
#4. Acute on chronic HFpEF
- LVEF 60-65% per cardiology note, normal RV. Suspect volume overload is iatrogenic with IVF, surgery etc. Steroids also likely contributing to fluid retention.
- BNP elevated at 1280
- Patient reports weight gain as well as significant increase in pedal edema
- Continue Lasix IV
#5. H/o Chronic pedal edema/lymphedema
- Reported h/o chronic pedal edema, now significantly increased since hospitalization
- Suspect Amlodipine is also contributing to pedal edema. D/c Norvasc for now. Monitor BP
- Diurese as tolerated
- Patient has been on chronic suppressive treatment with Keflex for recurrent cellulitis per ID service as out patient.
#5. h/o Aortic stenosis
- S/p TAVR 08/2023
- Continue diuresis
Other medical diagnoses:
- Colon cancer, s/p Robotic Right hemicolectomy 04/2025
- HTN
- HLD
- DM
Total time spent on this consultation/encounter __61__ minutes which includes review of history, physical exam, medications, laboratory data, personal review of imaging, extensive review of outpatient records, discussion with care team and
respiratory therapy.
Data:
CXR 04/2025: Small bilateral pleural effusions, slightly improved from recent radiograph.
No convincing radiographic evidence for active vascular congestion.
LE US 04/2025: No DVT
[2025-05-05] MEDS: NOVOLOG FLEXPEN-LOW RESISTANCE SC (13:27)
[2025-05-05 13:55] VITALS: BP 134/57; BP 167/72; PULSE 76; O2SAT 96
[2025-05-05 15:20] VITALS: BP 135/60
[2025-05-05] MEDS: VENTOLIN NEBULES 2.5 MG INH ×2 (15:25→18:06)
[2025-05-05 15:30] VITALS: BP 129/55; PULSE 85; O2SAT 96
[2025-05-05 16:04] LABS: Glucose - Point of Care 212 mg/dl (70-99)
[2025-05-05] MEDS: PULMICORT 0.5 MG INH (18:06)
[2025-05-05] MEDS: SODIUM CHLORIDE 3% FOR INHALATION 1 VIAL INH (18:06)
[2025-05-05] MEDS: LOVENOX 40 MG SC (18:50)
[2025-05-05] MEDS: NOVOLOG FLEXPEN-LOW RESISTANCE 2 UNITS SC (18:51)
[2025-05-05] MEDS: LIPITOR 20 MG PO (18:51)
[2025-05-05 21:35] LABS: Glucose - Point of Care 219 mg/dl (70-99)
[2025-05-05] MEDS: SAFETUSSIN DM (SUGAR/ALCOHOL FREE) 200 MG PO (22:30)
[2025-05-05] MEDS: SINGULAIR 10 MG PO (22:30)
[2025-05-05] MEDS: XALATAN OPHTHALMIC SOLUTION 1 DROP BOTH EYES (22:32)
[2025-05-05 23:25] VITALS: BP 122/58
[2025-05-06] MEDS: TYLENOL 650 MG PO ×4 (00:45→20:00)
[2025-05-06] MEDS: TESSALON PERLES 100 MG PO (00:45)
[2025-05-06] MEDS: VENTOLIN NEBULES 2.5 MG INH ×5 (00:59→18:03)
[2025-05-06] MEDS: TYLENOL PO ×2 (04:58→17:35)
[2025-05-06 06:00] VITALS: BMI 43.8
[2025-05-06] MEDS: PULMICORT 0.5 MG INH ×2 (07:46→18:03)
[2025-05-06] MEDS: SODIUM CHLORIDE 3% FOR INHALATION 1 VIAL INH ×2 (07:47→18:03)
[2025-05-06 07:50] VITALS: BP 128/77
[2025-05-06] MEDS: NOVOLOG FLEXPEN-LOW RESISTANCE SC (07:54)
[2025-05-06 07:55] LABS: Glucose - Point of Care 146 mg/dl (70-99)
[2025-05-06] MEDS: MYRBETRIQ EXTENDED RELEASE 50 MG PO (08:55)
[2025-05-06] MEDS: DELTASONE 40 MG PO (08:55)
[2025-05-06] MEDS: ZOLOFT 100 MG PO (08:56)
[2025-05-06] MEDS: PEPCID 20 MG PO ×2 (08:56→20:01)
[2025-05-06] MEDS: LOW STRENGTH ASPIRIN 81 MG PO (08:56)
[2025-05-06] MEDS: ZYLOPRIM 300 MG PO (08:56)
[2025-05-06] MEDS: ZESTRIL 10 MG PO (08:56)
[2025-05-06] MEDS: MUCINEX 600 MG PO ×2 (08:56→20:00)
[2025-05-06] MEDS: LASIX 40 MG IV (08:56)
[2025-05-06] MEDS: KEFLEX 500 MG PO ×2 (08:56→20:00)
[2025-05-06] MEDS: VIBRAMYCIN 100 MG PO ×2 (08:56→20:01)
[2025-05-06] MEDS: HYDROPHOR 1 APPLIC TOPICAL (08:57)
[2025-05-06] MEDS: DESENEX/MITRAZOL/ZEASORB 1 APPLIC TOPICAL ×2 (08:57→20:01)
[2025-05-06] MEDS: TRIAMCINOLONE ACETONIDE 0.1% CREAM 1 APPLIC TOPICAL (08:58)
[2025-05-06] MEDS: PLAVIX 75 MG PO (08:58)
[2025-05-06] MEDS: ANESTHETIC LOZENGE 1 LOZENGE PO ×2 (09:09→17:51)
--- NOTE | 2025-05-06 10:14 | W.PN.HOSP.TC ---
Addendum entered and electronically signed by Sage Chiu MD 05/06/25 16:22:
Acute on chronic HFpEF
Original Note:
Today's Communication/Plan
-
CW current tx
Taper steroids per pulm
Assessment / Plan
Assessment / Plan
Shortness of breath with upper respiratory symptoms of sore throat, nasal congestion, cough with productive phlegm. She is also having active bronchospasm. I suspect this may be more acute bronchitis with ashtma flare.
Hx of Asthma not COPD per pt.
Improved wheezing. Remains room air.
Continue with nebulizers and doxycycline.
cw scheduled Mucinex. cw Acapella.
Continue with 3% sodium chloride nebulizer and steroid nebulizer. Appreciate pulmonary input.
Taper steroids per pulmonary
Possible mild CHF component with preserved EF. Patient weight is about her baseline weight of 255 pounds. Chest x-ray raises concern for increased interstitial markings. BNP is just about the normal range for her age. EKG with no acute ST-T
changes compared to before. Troponins were negative. No chest pain or anginal symptoms. Added IV Lasix -improving wt. Today's wt is probably erroneous -it was a bedscale . Repeat chest x-ray shows small bilateral pleural effusion but no
further vascular congestive changes. CW current dose IV Lasix. BMP is okay
BL LE edema - suspect combination of chronic dependent edema/lymphedema and CHF. On chronic ABX prophylaxis for cellulitis of legs. US leg neg , rigo wrap legs for edema management. Improving
Status post right hemicolectomy for cecal cancer-continue the postop surgical care per surgical team.
Diabetes mellitus-blood sugars mostly under goal-continue sliding scale insulin.
Primary hypertension-continue with amlodipine and lisinopril.
Anticipated Discharge: 24 - 48 hours
Subjective/Interval History
-
Date of Service: May 06, 2025
Starting to feel better now. Less wheezy. Denies shortness of breath at rest. Cough with thick phlegm present but no worse.
No chest pains. No dizziness. No nausea vomiting. Improved lower extremity edema.
Objective Data
-
Vital Signs:
Vital Signs
Temp Pulse Resp BP Pulse Ox
98.2 F 82 18 128/77 95
05/06/25 07:50 05/06/25 08:56 05/06/25 07:50 05/06/25 08:56 05/06/25 09:30
I&O
05/05/25 05/06/25 05/07/25
06:59 06:59 05:59
Intake Total 2640 / 2640 1196 / 1196
Balance 2640 / 2640 1196 / 1196
Physical Exam
-
General: Comfortable
Respiratory: Wheezes and Non Labored Respirations; Negative Accessory Resp Muscle Use
Cardiac: Regular Rhythm and S1/S2; Negative Tachycardic
GI: Soft
Musculoskeletal: Edema, Right Lower Extrem (Improved) and Edema, Left Lower Extrem (Improved)
Neuro: AO x 3
--- NOTE | 2025-05-06 11:01 | W.PN.CRS1 ---
Addendum entered and electronically signed by Godwin Granado MD 05/06/25 13:35:
Patient seen and examined. Agree with assessment plan as documented below.
Original Note:
Today's Communication / Plan
-
pulm managemetn
Assessment/Plan
-
75 yo pt with h/o AVR, DM, asthma and HFpEF now POD #8, robotic right colectomy for cecal cancer
Doing well from surgical standpoint with good bowel recovery; however developed asthma exacerbation with acute purulent bronchitis during her recovery
AFVSS
On steroid taper
Plan:
continue with diabetic diet
hospitalist and pulm following
C/w Plavix and ASA
OOB as tolerated with PT/OT, will likely need SNF upon discharge, CM following
dispo to SNF once cleared by medicine from cardiopulmonary standpoint and SNF bed arranged
Subjective Data
Procedure
04/28/2025- Robotic right colectomy with intracorporeal anastomosis
Subjective Data
Date of Service: May 06, 2025
Pt seen and examined at bedside with Dr. Granado. Denies n/v. Tolerating diet. Discomfort to abdomen with cough. Passing loose stools/flatus.
Objective Data
-
Vital Signs
Temp Pulse Resp BP Pulse Ox
98.2 F 82 18 128/77 95
05/06/25 07:50 05/06/25 08:56 05/06/25 07:50 05/06/25 08:56 05/06/25 09:30
Intake & Output
05/05/25 05/06/25 05/07/25
06:59 06:59 05:59
Intake Total 2640 / 2640 1196 / 1196
Balance 2640 / 2640 1196 / 1196
Intake:
Oral fluids 2640 / 2640 1196 / 1196
Other:
How many times incontinent 2
SATURATED amount urine
Number of approximated MODERATE 1 6
amounts of urine
Number of approximated LARGE 2
amounts of urine
Number of unmeasured liquid
stools
Rectum 1
Lab Results
05/05/25 06:33
05/05/25 06:33
Physical Exam
-
General: No Acute Distress and AOx3
Abdomen: Soft, Non Distended and Non Tender
Extremities: Symmetrical Edema (1-2+)
Skin: Warm and Dry
Incision: Clear, Dry, Intact (ecchymosis near umbilicus)
--- NOTE | 2025-05-06 12:08 | W.PN.PUL3 ---
Today's Communication / Plan
-
No change in prednisone dose
Continue nebulized therapy
DVT prophylaxis
Assessment
-
In brief, 75 old female s/p right hemicolectomy for newly detected cecal cancer, developed postop worsening pedal edema along with increasing cough, greenish expectoration and wheezing. Pulmonary service was consulted for further input.
#1. Dyspnea
- Multifactorial. Patient has b/l wheezing consistent with asthma exacerbation, also has purulent bronchitis and is volume overloaded on exam
- Continue diuresis, bronchodilators and Antibiotics.
#2. Acute exacerbation of Asthma
- Continue Singulair
- Continue budesonide Neb BID
- Continue albuterol qid nebulized. In view of thick and difficult to expectorate phlegm, will d/c Ipratropium
- Continue 3% NS Nebulized BID for thick and difficult to expectorate mucous
- Continue Mucinex BID
- With recent surgery, minimize steroids. Added inhaled budesonide, continue prednisone 40 mg, no change in dose for now
#3. Acute purulent bronchitis
- Patient has new onset greenish expectoration, thick
- No obvious pneumonic infiltrate on CXR
- Continue Doxycycline. C sputum culture negative to date
#4. Acute on chronic HFpEF
- LVEF 60-65% per cardiology note, normal RV. Suspect volume overload is iatrogenic with IVF, surgery etc. Steroids also likely contributing to fluid retention.
- BNP elevated at 1280
- Patient reports weight gain as well as significant increase in pedal edema
- Continue Lasix IV per primary service
#5. H/o Chronic pedal edema/lymphedema
- Reported h/o chronic pedal edema, now significantly increased since hospitalization
- Suspect Amlodipine is also contributing to pedal edema. D/c Norvasc for now. Monitor BP
- Diurese as tolerated
- Patient has been on chronic suppressive treatment with Keflex for recurrent cellulitis per ID service as out patient.
#5. h/o Aortic stenosis
- S/p TAVR 08/2023
- Continue diuresis
Other medical diagnoses:
- Colon cancer, s/p Robotic Right hemicolectomy 04/2025
- HTN
- HLD
- DM
Data:
CXR 04/2025: Small bilateral pleural effusions, slightly improved from recent radiograph.
No convincing radiographic evidence for active vascular congestion.
LE US 04/2025: No DVT
Subjective Data
-
Date of Service:
Date of Service: May 06, 2025
Subjective:
Patient currently receiving nebulized treatment. Feels about the same may be slightly better. Productive green mucus. Denies chest pain.
Objective Data
Data Reviewed
Vital Signs / I&O / Oxygen:
Vital Signs
Temp Pulse Resp BP Pulse Ox
98.2 F 70 16 128/77 96
05/06/25 07:50 05/06/25 11:19 05/06/25 11:19 05/06/25 08:56 05/06/25 11:19
Intake and Output
05/05/25 05/06/25 05/07/25
06:59 06:59 05:59
Intake Total 2640 / 2640 1196 / 1196
Balance 2640 / 2640 1196 / 1196
SaO2 96
Nasal Cannula flow liters per 2
minute
Physical Exam
General: Comfortable
HEENT: Normocephalic
Cardiovascular: S1-S2, Regular Rhythm, Murmur (n) and Rub (n)
Respiratory: Wheeze (Diffuse), Crackles (n), Rhonchi (few) and Non-Labored Respirations
GI: Soft, Non Distended and Non Tender
Neurology: Awake, Alert and No Motor Deficits
Labs/Micro/Reports
Lab Data
05/05/25 06:33
05/05/25 06:33
[2025-05-06 12:40] LABS: Glucose - Point of Care 158 mg/dl (70-99)
[2025-05-06] MEDS: NOVOLOG FLEXPEN-LOW RESISTANCE 1 UNITS SC ×2 (12:41→17:52)
[2025-05-06 15:40] VITALS: BP 132/77
[2025-05-06 17:31] LABS: Glucose - Point of Care 190 mg/dl (70-99)
[2025-05-06] MEDS: LOVENOX 40 MG SC (17:51)
[2025-05-06] MEDS: ULTRAM 100 MG PO (17:51)
[2025-05-06] MEDS: LIPITOR 20 MG PO (17:51)
[2025-05-06] MEDS: SAFETUSSIN DM (SUGAR/ALCOHOL FREE) 200 MG PO (20:00)
[2025-05-06 22:22] LABS: Glucose - Point of Care 197 mg/dl (70-99)
[2025-05-06] MEDS: SINGULAIR 10 MG PO (22:28)
[2025-05-06] MEDS: ATIVAN 0.25 MG PO (22:28)
[2025-05-06] MEDS: XALATAN OPHTHALMIC SOLUTION 1 DROP BOTH EYES (22:29)
[2025-05-06 23:30] VITALS: BP 142/63
[2025-05-07] MEDS: TYLENOL 650 MG PO ×5 (00:03→23:49)
[2025-05-07] MEDS: ULTRAM 100 MG PO (00:04)
[2025-05-07] MEDS: VENTOLIN NEBULES 2.5 MG INH ×5 (00:35→18:07)
[2025-05-07] MEDS: TYLENOL PO ×2 (04:00→13:43)
[2025-05-07 06:00] VITALS: BMI 43.2
[2025-05-07 06:23] LABS: Hematocrit 34.6 % (37.0-47.0); Hemoglobin 10.5 g/dL (12.0-16.0); Mean Corp Hgb Conc. 30.3 g/dL (33.0-37.0); Mean Corpuscular Volume 88.0 fL (81.0-99.0); Platelet Count 463 10^3/uL (130-400); Red Cell Dist. Width 16.1 % (11.5-14.5)
[2025-05-07 06:53] LABS: Blood Urea Nitrogen 35 mg/dl (7-17); Calcium 9.0 mg/dl (8.4-10.2); Carbon Dioxide 31 mmol/L (22-30); Chloride 95 mmol/L (98-107); Estimated Creatinine Clearance 73 ml/min; Glucose 117 mg/dl (70-99); Potassium 4.5 mmol/L (3.5-5.1); Sodium 134 mmol/L (135-145); eGFR > 60.00
[2025-05-07 07:00] VITALS: BP 112/58
[2025-05-07 07:10] LABS: Glucose - Point of Care 104 mg/dl (70-99)
[2025-05-07] MEDS: NOVOLOG FLEXPEN-LOW RESISTANCE SC ×2 (07:36→11:58)
[2025-05-07] MEDS: SODIUM CHLORIDE 3% FOR INHALATION 1 VIAL INH ×2 (08:12→18:07)
[2025-05-07] MEDS: PULMICORT 0.5 MG INH ×2 (08:12→18:07)
[2025-05-07] MEDS: DELTASONE 40 MG PO (09:36)
[2025-05-07] MEDS: PEPCID 20 MG PO ×2 (09:36→22:06)
[2025-05-07] MEDS: MUCINEX 600 MG PO ×2 (09:36→22:06)
[2025-05-07] MEDS: KEFLEX 500 MG PO ×2 (09:37→22:07)
[2025-05-07] MEDS: VIBRAMYCIN 100 MG PO ×2 (09:37→22:06)
[2025-05-07] MEDS: PLAVIX 75 MG PO (09:37)
[2025-05-07] MEDS: ZOLOFT 100 MG PO (09:37)
[2025-05-07] MEDS: LOW STRENGTH ASPIRIN 81 MG PO (09:37)
[2025-05-07] MEDS: LASIX 40 MG IV (09:37)
[2025-05-07] MEDS: ZYLOPRIM 300 MG PO (09:37)
[2025-05-07] MEDS: ZESTRIL 10 MG PO (09:37)
--- NOTE | 2025-05-07 09:39 | W.PN.CRS1 ---
Addendum entered and electronically signed by Godwin Granado MD 05/07/25 10:40:
Patient seen and examined. Agree with assessment plan as documented below.
Original Note:
Today's Communication / Plan
-
dispo to snf when cleared medically
Assessment/Plan
-
75 yo pt with h/o AVR, DM, asthma and HFpEF now POD #9, robotic right colectomy for cecal cancer
Doing well from surgical standpoint with good bowel recovery; however developed asthma exacerbation with acute purulent bronchitis during her recovery
AFVSS
On steroid taper with mild leukocytosis
Plan:
continue with diabetic diet
hospitalist and pulm following
C/w Plavix and ASA
OOB as tolerated with PT/OT, will likely need SNF upon discharge, CM following
dispo to SNF once cleared by medicine from cardiopulmonary standpoint and SNF bed arranged
Subjective Data
Procedure
04/28/2025- Robotic right colectomy with intracorporeal anastomosis
Subjective Data
Date of Service: May 07, 2025
Pt seen and examined at bedside with Dr. Granado. Denies n/v. Passing some loose bm's. voiding frequently on lasix. Tolerating diet well. Notes discomfort to incisions with cough.
Objective Data
-
Vital Signs
Temp Pulse Resp BP Pulse Ox
97.6 F 68 16 112/58 96
05/07/25 07:00 05/07/25 08:17 05/07/25 08:17 05/07/25 07:00 05/07/25 08:17
Intake & Output
05/06/25 05/07/25 05/08/25
06:59 05:59 06:59
Intake Total 1196 / 1196 560 / 560
Balance 1196 / 1196 560 / 560
Intake:
Oral fluids 1196 / 1196 560 / 560
Other:
How many times incontinent 2
MODERATE amount urine
How many times incontinent 3
SATURATED amount urine
Number of approximated MODERATE 6
amounts of urine
Number of approximated LARGE 1
amounts of urine
Lab Results
05/07/25 05:37
05/07/25 05:37
Physical Exam
-
General: No Acute Distress and AOx3
Abdomen: Soft, Non Distended and Tender (mild to incision)
Extremities: Symmetrical Edema (1+)
Skin: Warm and Dry
Incision: Clear, Dry, Intact (ecchymosis near umbilicus)
[2025-05-07] MEDS: DESENEX/MITRAZOL/ZEASORB 1 APPLIC TOPICAL ×2 (09:45→22:07)
[2025-05-07] MEDS: HYDROPHOR 1 APPLIC TOPICAL (09:47)
[2025-05-07] MEDS: TRIAMCINOLONE ACETONIDE 0.1% CREAM 1 APPLIC TOPICAL (09:48)
--- NOTE | 2025-05-07 10:19 | W.PN.HOSP.TC ---
Today's Communication/Plan
-
Continue with IV Lasix
Taper steroids per pulmonary
Continue doxycycline
DC planning
Assessment / Plan
Assessment / Plan
Shortness of breath with upper respiratory symptoms of sore throat, nasal congestion, cough with productive phlegm. She is also having active bronchospasm. I suspect this may be more acute bronchitis with ashtma flare.
Hx of Asthma not COPD per pt.
Improved wheezing. Remains room air.
Continue with nebulizers and doxycycline.
cw scheduled Mucinex. cw Acapella.
Continue with 3% sodium chloride nebulizer and steroid nebulizer. Appreciate pulmonary input.
Taper steroids per pulmonary
Possible mild CHF component with preserved EF. Patient weight is about her baseline weight of 255 pounds. Chest x-ray raises concern for increased interstitial markings. BNP is just about the normal range for her age. EKG with no acute ST-T
changes compared to before. Troponins were negative. No chest pain or anginal symptoms. Added IV Lasix -improving wt. Repeat chest x-ray shows small bilateral pleural effusion but no further vascular congestive changes. CW current dose IV
Lasix. BMP is okay
BL LE edema - suspect combination of chronic dependent edema/lymphedema and CHF. On chronic ABX prophylaxis for cellulitis of legs. US leg neg , rigo wrap legs for edema management. Improving
Status post right hemicolectomy for cecal cancer-continue the postop surgical care per surgical team.
Diabetes mellitus-blood sugars mostly under goal-continue sliding scale insulin.
Primary hypertension-continue with amlodipine and lisinopril.
Anticipated Discharge: 24 - 48 hours
Subjective/Interval History
-
Date of Service: May 07, 2025
Feeling improved. Less cough. Less productive phlegm. Denies any shortness of breath at rest.
No chest pain.
No fever or chills.
Objective Data
-
Labs:
Laboratory Results
05/07/25
05:37
WBC 11.5 H
Hgb 10.5 L
Hct 34.6 L
Plt Count 463 H
Sodium 134 L
Potassium 4.5
Chloride 95 L
Carbon Dioxide 31 H
BUN 35 H
Creatinine 0.9
Glucose 117 H
Calcium 9.0
Vital Signs:
Vital Signs
Temp Pulse Resp BP Pulse Ox
97.6 F 68 16 112/58 96
05/07/25 07:00 05/07/25 08:17 05/07/25 08:17 05/07/25 09:37 05/07/25 08:17
I&O
05/06/25 05/07/25 05/08/25
06:59 05:59 06:59
Intake Total 1196 / 1196 560 / 560
Balance 1196 / 1196 560 / 560
Physical Exam
-
General: Comfortable
Respiratory: Wheezes and Non Labored Respirations; Negative Accessory Resp Muscle Use
Cardiac: Regular Rhythm and S1/S2; Negative Tachycardic
Neuro: AO x 3
Psych: Calm
Data Reviewed
-
Labs: Labs Reviewed by me
[2025-05-07] MEDS: MYRBETRIQ EXTENDED RELEASE PO (10:28)
[2025-05-07] MEDS: SAFETUSSIN DM (SUGAR/ALCOHOL FREE) 200 MG PO (10:29)
[2025-05-07] MEDS: DETROL LA 4 MG PO (10:29)
[2025-05-07] MEDS: TESSALON PERLES 100 MG PO (10:31)
[2025-05-07 11:34] LABS: Glucose - Point of Care 104 mg/dl (70-99)
--- NOTE | 2025-05-07 12:30 | W.PN.PUL3 ---
Today's Communication / Plan
-
No changes
Continue treatments at rehabilitation
Consider slow taper of prednisone, decrease by 10 mg every 3 to 5 days until off
If unable to set up nebulizer at home, will require short-term follow-up in pulmonary office
Assessment
-
In brief, 75 old female s/p right hemicolectomy for newly detected cecal cancer, developed postop worsening pedal edema along with increasing cough, greenish expectoration and wheezing. Pulmonary service was consulted for further input.
#1. Dyspnea
- Multifactorial. Patient has b/l wheezing consistent with asthma exacerbation, also has purulent bronchitis and is volume overloaded on exam
- Continue diuresis, bronchodilators and Antibiotics.
#2. Acute exacerbation of Asthma
- Continue Singulair
- Continue budesonide Neb BID
- Continue albuterol qid nebulized. In view of thick and difficult to expectorate phlegm, will d/c Ipratropium
- Continue 3% NS Nebulized BID for thick and difficult to expectorate mucous
- Continue Mucinex BID
- With recent surgery, minimize steroids. Added inhaled budesonide, continue prednisone 40 mg, no change in dose for now
- Will consult case management for home nebulizer. Therapy should continue at rehabilitation
#3. Acute purulent bronchitis
- Patient has new onset greenish expectoration, thick
- No obvious pneumonic infiltrate on CXR
- Continue Doxycycline. C sputum culture negative to date
#4. Acute on chronic HFpEF
- LVEF 60-65% per cardiology note, normal RV. Suspect volume overload is iatrogenic with IVF, surgery etc. Steroids also likely contributing to fluid retention.
- BNP elevated at 1280
- Patient reports weight gain as well as significant increase in pedal edema
- Continue Lasix IV per primary service
#5. H/o Chronic pedal edema/lymphedema
- Reported h/o chronic pedal edema, now significantly increased since hospitalization
- Suspect Amlodipine is also contributing to pedal edema. D/c Norvasc for now. Monitor BP
- Diurese as tolerated
- Patient has been on chronic suppressive treatment with Keflex for recurrent cellulitis per ID service as out patient.
#5. h/o Aortic stenosis
- S/p TAVR 08/2023
- Continue diuresis
Other medical diagnoses:
- Colon cancer, s/p Robotic Right hemicolectomy 04/2025
- HTN
- HLD
- DM
Data:
CXR 04/2025: Small bilateral pleural effusions, slightly improved from recent radiograph.
No convincing radiographic evidence for active vascular congestion.
LE US 04/2025: No DVT
Subjective Data
-
Date of Service:
Date of Service: May 07, 2025
Subjective:
Overall, patient continues to improve. Still with cough, less productive. Still with wheezing and shortness of breath but improved. Feels nebulizer helps. Does not have a nebulizer machine at home.
Objective Data
Data Reviewed
Vital Signs / I&O / Oxygen:
Vital Signs
Temp Pulse Resp BP Pulse Ox
97.6 F 70 16 112/58 96
05/07/25 07:00 05/07/25 11:25 05/07/25 11:25 05/07/25 09:37 05/07/25 11:25
Intake and Output
05/06/25 05/07/25 05/08/25
06:59 05:59 06:59
Intake Total 1196 / 1196 560 / 560
Balance 1196 / 1196 560 / 560
SaO2 96
Nasal Cannula flow liters per 2
minute
Physical Exam
General: Comfortable
HEENT: Normocephalic
Cardiovascular: S1-S2, Regular Rhythm, Murmur (n) and Rub (n)
Respiratory: Wheeze (Diffuse), Crackles (n), Rhonchi (few) and Non-Labored Respirations
GI: Soft, Non Distended and Non Tender
Neurology: Awake, Alert and No Motor Deficits
Labs/Micro/Reports
Lab Data
05/07/25 05:37
05/07/25 05:37
Microbiology
05/05/25 20:42 Sputum Respiratory Culture - Preliminary
Usual Respiratory Claudine
05/05/25 20:42 Sputum Gram Stain - Preliminary
[2025-05-07 15:00] VITALS: BP 126/55
[2025-05-07 16:41] LABS: Glucose - Point of Care 164 mg/dl (70-99)
[2025-05-07] MEDS: LIPITOR 20 MG PO (17:05)
[2025-05-07] MEDS: LOVENOX 40 MG SC (17:05)
[2025-05-07] MEDS: NOVOLOG FLEXPEN-LOW RESISTANCE 1 UNITS SC (17:08)
[2025-05-07 21:31] LABS: Glucose - Point of Care 249 mg/dl (70-99)
[2025-05-07] MEDS: SINGULAIR 10 MG PO (22:06)
[2025-05-07] MEDS: XALATAN OPHTHALMIC SOLUTION 1 DROP BOTH EYES (22:07)
[2025-05-07 23:00] VITALS: BP 128/62
[2025-05-07] MEDS: ULTRAM 50 MG PO (23:49)
[2025-05-08] MEDS: TYLENOL PO (04:01)
[2025-05-08 05:34] VITALS: BMI 40.9
[2025-05-08 07:33] LABS: Glucose - Point of Care 104 mg/dl (70-99)
[2025-05-08 07:37] LABS: Blood Urea Nitrogen 38 mg/dl (7-17); Calcium 8.6 mg/dl (8.4-10.2); Carbon Dioxide 34 mmol/L (22-30); Chloride 95 mmol/L (98-107); Estimated Creatinine Clearance 64 ml/min; Glucose 109 mg/dl (70-99); Potassium 4.4 mmol/L (3.5-5.1); Sodium 132 mmol/L (135-145); eGFR 59.12
[2025-05-08 07:40] VITALS: BP 132/66
[2025-05-08] MEDS: DELTASONE 40 MG PO (08:21)
[2025-05-08] MEDS: NOVOLOG FLEXPEN-LOW RESISTANCE SC ×2 (08:21→12:46)
[2025-05-08] MEDS: MUCINEX 600 MG PO ×2 (08:22→20:19)
[2025-05-08] MEDS: DETROL LA 4 MG PO (08:22)
[2025-05-08] MEDS: LASIX 40 MG IV (08:22)
[2025-05-08] MEDS: TYLENOL 650 MG PO ×4 (08:22→21:16)
[2025-05-08] MEDS: ZESTRIL 10 MG PO (08:23)
[2025-05-08] MEDS: PULMICORT 0.5 MG INH ×2 (08:23→19:32)
[2025-05-08] MEDS: PLAVIX 75 MG PO (08:23)
[2025-05-08] MEDS: KEFLEX 500 MG PO ×2 (08:23→20:19)
[2025-05-08] MEDS: PEPCID 20 MG PO ×2 (08:23→20:19)
[2025-05-08] MEDS: ZYLOPRIM 300 MG PO (08:23)
[2025-05-08] MEDS: ZOLOFT 100 MG PO (08:23)
[2025-05-08] MEDS: SODIUM CHLORIDE 3% FOR INHALATION 1 VIAL INH ×2 (08:23→19:32)
[2025-05-08] MEDS: LOW STRENGTH ASPIRIN 81 MG PO (08:23)
[2025-05-08] MEDS: HYDROPHOR 1 APPLIC TOPICAL (08:24)
[2025-05-08] MEDS: VENTOLIN NEBULES 2.5 MG INH ×4 (08:24→19:32)
[2025-05-08] MEDS: DESENEX/MITRAZOL/ZEASORB 1 APPLIC TOPICAL ×2 (08:24→20:13)
[2025-05-08] MEDS: VIBRAMYCIN 100 MG PO ×2 (08:25→20:20)
[2025-05-08] MEDS: XALATAN OPHTHALMIC SOLUTION 1 DROP BOTH EYES (08:25)
--- NOTE | 2025-05-08 08:57 | W.PN.HOSP.TC ---
Today's Communication/Plan
-
Diuresis and steroids
Assessment / Plan
Assessment / Plan
Physical exam:
General: Acutely ill
HEENT: Normocephalic, Atraumatic and Moist Mucous Membranes
Respiratory: Bilateral wheezes; Negative Rales or Rhonchi
Cardiac: Regular Rhythm and S1/S2
GI: Soft, Nontender and Nondistended
Musculoskeletal: No Clubbing, No Cyanosis. Bilateral lower extremity edema
Neuro: Awake, Alert and Oriented, no neurological deficit
Psych: Calm
A/P:
Patient is 75 years old female with multiple comorbidities admitted for robotic right colectomy for cecal cancer. Hospitalist consulted for dyspnea multifactorial etiology.
Dyspnea-multifactorial, acute asthma exacerbation + acute exacerbation of heart failure+ acute bronchitis:
Continue steroids
Continue diuretics
Obtain echocardiogram-ordered today
Acapella
Bronchodilators and 3% saline
Discussed with pulmonary in person
Defer discharge planning to colorectal surgery but suspect that she may need 24 more hours here in the hospital
Acute on chronic HFpEF and recent TAVR:
Continue IV Lasix and likely can switch to oral over the next 24 hours
Admission BNP elevated 1280
Weight 115.6 kg on 04/19--> 123 on 05/03-->114.8 kg today
DVT prophylaxis:
Lovenox SQ
CODE STATUS:
Full code
Total time spent on today's encounter was 36 minutes which included time spent in counseling the patient/family regarding diagnosis and treatment plan as listed above, goals of care, and symptom management. Case was discussed with nursing staff,
specialists, and care coordinators/case management. All labs and imaging personally reviewed by me. Remainder the time spent in detailed review of previous records, lab data, imaging, and other medical provider documentation.
Anticipated Discharge: Within 24 hours
Subjective/Interval History
-
Date of Service: May 08, 2025
Patient still having some wheezing although overall feels less short of breath. No chest pain. Afebrile
Objective Data
-
Labs:
Laboratory Results
05/08/25
06:35
Sodium 132 L
Potassium 4.4
Chloride 95 L
Carbon Dioxide 34 H
BUN 38 H
Creatinine 1.0
Glucose 109 H
Calcium 8.6
Vital Signs:
Vital Signs
Temp Pulse Resp BP Pulse Ox
98.1 F 78 16 132/66 98
05/08/25 07:40 05/08/25 08:43 05/08/25 08:43 05/08/25 08:22 05/08/25 08:43
I&O
05/07/25 05/08/25 05/09/25
05:59 06:59 06:59
Intake Total 560 / 560 420 / 420
Balance 560 / 560 420 / 420
[2025-05-08] MEDS: TRIAMCINOLONE ACETONIDE 0.1% CREAM 1 APPLIC TOPICAL (09:54)
--- NOTE | 2025-05-08 10:20 | W.PN.CRS1 ---
Today's Communication / Plan
-
dispo once cleared from a pulmonary standpoint
Assessment/Plan
-
75 yo pt with h/o AVR, DM, asthma and HFpEF now POD #10, robotic right colectomy for cecal cancer
Doing well from surgical standpoint with good bowel recovery; however developed asthma exacerbation with acute purulent bronchitis during her recovery
AFVSS
On steroid taper
Plan:
continue with diabetic diet
hospitalist and pulm following
C/w Plavix and ASA
OOB as tolerated with PT/OT, will likely need SNF upon discharge, CM following
Doing well from a surgical perpsective
dispo to SNF once cleared by medicine from cardiopulmonary standpoint and SNF bed arranged
Subjective Data
Procedure
04/28/2025- Robotic right colectomy with intracorporeal anastomosis
Subjective Data
Date of Service: May 08, 2025
Patient states she is improving from a pulmonary standpoint. She denies nausea or vomiting. She is tolerating a diet. Has bowel function.
Objective Data
-
Vital Signs
Temp Pulse Resp BP Pulse Ox
98.1 F 78 16 132/66 98
05/08/25 07:40 05/08/25 08:43 05/08/25 08:43 05/08/25 08:22 05/08/25 08:43
Intake & Output
05/07/25 05/08/25 05/09/25
05:59 06:59 06:59
Intake Total 560 / 560 420 / 420
Balance 560 / 560 420 / 420
Intake:
Oral fluids 560 / 560 420 / 420
Other:
How many times incontinent 2
MODERATE amount urine
How many times incontinent 3 1
SATURATED amount urine
Number of approximated MODERATE 2
amounts of urine
Number of approximated LARGE 1
amounts of urine
Lab Results
05/07/25 05:37
05/08/25 06:35
Physical Exam
-
General: No Acute Distress and AOx3
Abdomen: Soft, Non Distended and Non Tender
Skin: Warm and Dry
Incision: Clear, Dry, Intact
--- NOTE | 2025-05-08 10:45 | CM ---
Addendum entered by Marcie Herring 05/08/25 14:21:
Pt not medically stable for discharge to SNF. CM will follow up with [facility] tomorrow regarding bed availability.
Original Note:
CM following for discharge to SNF. Pt prefers [facility] and bed may be available for discharge today. TT to Dr. Arriola to determine if pt will be cleared for discharge today.
[2025-05-08] MEDS: ULTRAM 50 MG PO (11:44)
[2025-05-08] MEDS: ANESTHETIC LOZENGE 1 LOZENGE PO (11:44)
[2025-05-08] MEDS: TESSALON PERLES 100 MG PO ×2 (11:44→20:20)
--- NOTE | 2025-05-08 12:13 | W.PN.PUL3 ---
Today's Communication / Plan
-
Continue Pulmicort/albuterol/3% saline.
Still wheezing continue with current care without change.
Decrease prednisone to 30 mg and wean down by 10 mg every 72 hours to off.
Acapella device
Incentive spirometry
Diuresis per primary team
Agree with echocardiogram
Assessment
-
In brief, 75 old female s/p right hemicolectomy for newly detected cecal cancer, developed postop worsening pedal edema along with increasing cough, greenish expectoration and wheezing. Pulmonary service was consulted for further input.
#1. Dyspnea
- Multifactorial. Patient has b/l wheezing consistent with asthma exacerbation, also has purulent bronchitis and is volume overloaded on exam
- Continue diuresis, bronchodilators and Antibiotics.
#2. Acute exacerbation of Asthma
-Lung exam still with expiratory wheezing 07/08/2024.
-Not on oxygen supplement
- Continue Singulair
- Continue budesonide Neb BID
- Continue albuterol qid nebulized. In view of thick and difficult to expectorate phlegm, Ipratropium dc.
- Continue 3% NS Nebulized BID for thick and difficult to expectorate mucous
- Continue Mucinex BID
- With recent surgery, minimize steroids. --> Prednisone decreased to 30 mg, continue to taper down every 72 hours to off.
- Above regimen should continue during rehabilitation.
#3. Acute purulent bronchitis
- Patient has new onset greenish expectoration, thick
- No obvious pneumonic infiltrate on CXR
- Continue Doxycycline-complete 5 days.
C sputum culture negative to date
#4. Acute on chronic HFpEF
- LVEF 60-65% per cardiology note, normal RV. Suspect volume overload is iatrogenic with IVF, surgery etc. Steroids also likely contributing to fluid retention.
- BNP elevated at 1280
- Patient reports weight gain as well as significant increase in pedal edema
- Continue Lasix IV per primary service
#5. H/o Chronic pedal edema/lymphedema
- Reported h/o chronic pedal edema, now significantly increased since hospitalization
- Suspect Amlodipine is also contributing to pedal edema. D/c Norvasc for now. Monitor BP
- Diurese as tolerated
- Patient has been on chronic suppressive treatment with Keflex for recurrent cellulitis per ID service as out patient.
#5. h/o Aortic stenosis
- S/p TAVR 08/2023
- Continue diuresis
Other medical diagnoses:
- Colon cancer, s/p Robotic Right hemicolectomy 04/2025
- HTN
- HLD
- DM
Data:
CXR 04/2025: Small bilateral pleural effusions, slightly improved from recent radiograph.
No convincing radiographic evidence for active vascular congestion.
LE US 04/2025: No DVT
Subjective Data
-
Date of Service:
Date of Service: May 08, 2025
Chief Complaint: Pulmonary Follow Up (Dyspnea/asthma exacerbation.)
Subjective:
Patient clinically feels better from the pulmonary perspective
Denies increased cough or phlegm production
Review of Systems
Cardiopulmonary: Dyspnea (Improved) and Dyspnea on Exertion ( improved)
GI: Abdominal Pain (n) and Nausea (n)
Objective Data
Data Reviewed
Vital Signs / I&O / Oxygen:
Vital Signs
Temp Pulse Resp BP Pulse Ox
98.1 F 68 16 132/66 96
05/08/25 07:40 05/08/25 12:04 05/08/25 12:04 05/08/25 08:22 05/08/25 12:04
Intake and Output
05/07/25 05/08/25 05/09/25
05:59 06:59 06:59
Intake Total 560 / 560 420 / 420
Balance 560 / 560 420 / 420
SaO2 96
Nasal Cannula flow liters per 2
minute
Physical Exam
General: Comfortable
HEENT: Normocephalic
Cardiovascular: S1-S2, Regular Rhythm, Murmur (n) and Rub (n)
Respiratory: Wheeze (Bilateral expiratory), Crackles (n), Rhonchi (few) and Non-Labored Respirations
GI: Soft, Non Distended and Non Tender
Neurology: Awake, Alert and No Motor Deficits
Labs/Micro/Reports
Lab Data
05/07/25 05:37
05/08/25 06:35
Microbiology
05/05/25 20:42 Sputum Respiratory Culture - Final
Usual Respiratory Claudine
05/05/25 20:42 Sputum Gram Stain - Final
[2025-05-08 12:14] LABS: Glucose - Point of Care 132 mg/dl (70-99)
[2025-05-08] MEDS: LOVENOX 40 MG SC (17:51)
[2025-05-08] MEDS: LIPITOR 20 MG PO (17:51)
[2025-05-08 17:56] LABS: Glucose - Point of Care 176 mg/dl (70-99)
[2025-05-08] MEDS: NOVOLOG FLEXPEN-LOW RESISTANCE 1 UNITS SC (17:56)
[2025-05-08] MEDS: SINGULAIR 10 MG PO (21:16)
[2025-05-08 21:56] LABS: Glucose - Point of Care 187 mg/dl (70-99)
[2025-05-08 23:18] VITALS: BP 124/54
[2025-05-09] MEDS: TYLENOL 650 MG PO ×4 (00:34→19:49)
[2025-05-09] MEDS: TYLENOL PO ×2 (04:57→13:40)
[2025-05-09 06:00] VITALS: BMI 40.9
[2025-05-09] MEDS: SAFETUSSIN DM (SUGAR/ALCOHOL FREE) 200 MG PO (06:20)
[2025-05-09] MEDS: PULMICORT 0.5 MG INH ×2 (07:16→19:17)
[2025-05-09] MEDS: SODIUM CHLORIDE 3% FOR INHALATION 1 VIAL INH ×2 (07:16→19:17)
[2025-05-09] MEDS: VENTOLIN NEBULES 2.5 MG INH ×4 (07:16→19:17)
[2025-05-09 07:39] LABS: Glucose - Point of Care 95 mg/dl (70-99)
[2025-05-09 07:52] VITALS: BP 126/61
[2025-05-09 07:58] LABS: Blood Urea Nitrogen 37 mg/dl (7-17); Calcium 8.3 mg/dl (8.4-10.2); Carbon Dioxide 35 mmol/L (22-30); Chloride 95 mmol/L (98-107); Estimated Creatinine Clearance 71 ml/min; Glucose 93 mg/dl (70-99); Magnesium 2.2 mg/dl (1.6-2.3); Potassium 4.3 mmol/L (3.5-5.1); Sodium 134 mmol/L (135-145); eGFR > 60.00
--- NOTE | 2025-05-09 08:52 | W.PN.HOSP.TC ---
Today's Communication/Plan
-
Discharge planning per colorectal surgery
Assessment / Plan
Assessment / Plan
Physical exam:
General: No acute distress
HEENT: Normocephalic, Atraumatic and Moist Mucous Membranes
Respiratory: Bilateral scattered wheezes; Negative Rales or Rhonchi
Cardiac: Regular Rhythm and S1/S2
GI: Soft, Nontender and Nondistended
Musculoskeletal: No Clubbing, No Cyanosis. Bilateral lower extremity edema
Neuro: Awake, Alert and Oriented, no neurological deficit
Psych: Calm
A/P:
Patient is 75 years old female with multiple comorbidities admitted for robotic right colectomy for cecal cancer. Hospitalist consulted for dyspnea multifactorial etiology.
Dyspnea-multifactorial, acute asthma exacerbation + acute exacerbation of heart failure+ acute bronchitis:
Continue steroids
Continue diuretics
Echocardiogram-ordered yesterday; still pending
Acapella
Bronchodilators and 3% saline
Discussed with pulmonary in person today and pulmonary cleared her for discharge
Defer discharge planning to colorectal surgery but medically ready for discharge today from my standpoint as long as echocardiogram is okay. I also put all new medications on discharge module. Discussed with colorectal surgery today.
Acute on chronic HFpEF and recent TAVR:
Switch IV Lasix to oral today
Admission BNP elevated 1280
Weight 115.6 kg on 04/19--> 123 on 05/03-->114.7 kg today
DVT prophylaxis:
Lovenox SQ
CODE STATUS:
Full code
Total time spent on today's encounter was 36 minutes which included time spent in counseling the patient/family regarding diagnosis and treatment plan as listed above, goals of care, and symptom management. Case was discussed with nursing staff,
specialists, and care coordinators/case management. All labs and imaging personally reviewed by me. Remainder the time spent in detailed review of previous records, lab data, imaging, and other medical provider documentation.
Anticipated Discharge: Today
Subjective/Interval History
-
Date of Service: May 09, 2025
Patient feels better, less shortness of breath, less wheezes. No chest pain
Objective Data
-
Labs:
Laboratory Results
05/09/25
06:34
Sodium 134 L
Potassium 4.3
Chloride 95 L
Carbon Dioxide 35 H
BUN 37 H
Creatinine 0.9
Glucose 93
Calcium 8.3 L
Vital Signs:
Vital Signs
Temp Pulse Resp BP Pulse Ox
97.8 F 67 18 126/61 98
05/08/25 23:18 05/09/25 07:52 05/09/25 07:52 05/09/25 07:52 05/09/25 07:52
I&O
05/08/25 05/09/25 05/10/25
06:59 06:59 06:59
Intake Total 420 / 420 1200 / 1200
Balance 420 / 420 1200 / 1200
[2025-05-09] MEDS: NOVOLOG FLEXPEN-LOW RESISTANCE SC ×2 (08:59→12:39)
[2025-05-09] MEDS: DESENEX/MITRAZOL/ZEASORB 1 APPLIC TOPICAL ×2 (09:09→19:48)
[2025-05-09] MEDS: TRIAMCINOLONE ACETONIDE 0.1% CREAM 1 APPLIC TOPICAL (09:09)
[2025-05-09] MEDS: HYDROPHOR 1 APPLIC TOPICAL (09:09)
[2025-05-09] MEDS: KEFLEX 500 MG PO ×2 (09:10→19:49)
[2025-05-09] MEDS: DETROL LA 4 MG PO (09:10)
[2025-05-09] MEDS: PLAVIX 75 MG PO (09:10)
[2025-05-09] MEDS: LOW STRENGTH ASPIRIN 81 MG PO (09:10)
[2025-05-09] MEDS: ZYLOPRIM 300 MG PO (09:10)
[2025-05-09] MEDS: MUCINEX 600 MG PO ×2 (09:10→19:49)
[2025-05-09] MEDS: ZESTRIL 10 MG PO (09:11)
[2025-05-09] MEDS: VIBRAMYCIN 100 MG PO (09:11)
[2025-05-09] MEDS: ZOLOFT 100 MG PO (09:11)
[2025-05-09] MEDS: PEPCID 20 MG PO ×2 (09:11→19:49)
[2025-05-09] MEDS: LASIX IV (09:22)
[2025-05-09] MEDS: ZOFRAN 4 MG IV (10:06)
[2025-05-09] MEDS: DELTASONE 30 MG PO (10:06)
[2025-05-09] MEDS: LASIX 40 MG PO (10:11)
[2025-05-09] MEDS: TESSALON PERLES 100 MG PO (10:11)
[2025-05-09 10:30] VITALS: BP 102/53; O2SAT 98
--- NOTE | 2025-05-09 10:36 | W.PN.CRS1 ---
Today's Communication / Plan
-
dispo to snf once pulmonary clears
Assessment/Plan
-
75 yo pt with h/o AVR, DM, asthma and HFpEF now POD #10, robotic right colectomy for cecal cancer
Doing well from surgical standpoint with good bowel recovery; however developed asthma exacerbation with acute purulent bronchitis during her recovery
AFVSS
On steroid taper
Plan:
-continue with diabetic diet
-hospitalist and pulm following
-C/w Plavix and ASA
-OOB as tolerated with PT/OT, will likely need SNF upon discharge, CM following
-Doing well from a surgical perspective
-dispo to SNF once cleared by medicine from cardiopulmonary standpoint and SNF bed arranged. Discussed with hospitalist today.
Subjective Data
Procedure
04/28/2025- Robotic right colectomy with intracorporeal anastomosis
Subjective Data
Date of Service: May 09, 2025
Patient states she has no blood in her stool. She has bowel function. She has no nausea or vomiting. She is tolerating a diet. Her cough is improving.
Objective Data
-
Vital Signs
Temp Pulse Resp BP Pulse Ox
97.8 F 78 18 138/54 98
05/08/25 23:18 05/09/25 10:11 05/09/25 07:52 05/09/25 10:11 05/09/25 07:52
Intake & Output
05/08/25 05/09/25 05/10/25
06:59 06:59 06:59
Intake Total 420 / 420 1200 / 1200
Balance 420 / 420 1200 / 1200
Intake:
Oral fluids 420 / 420 1200 / 1200
Other:
How many times incontinent 1
MODERATE amount urine
How many times incontinent 1 2
SATURATED amount urine
Number of approximated MODERATE 2
amounts of urine
Lab Results
05/07/25 05:37
05/09/25 06:34
Physical Exam
-
General: No Acute Distress and AOx3
Abdomen: Soft, Non Distended and Non Tender
Skin: Warm and Dry
Incision: Clear, Dry, Intact
[2025-05-09 11:50] LABS: Glucose - Point of Care 108 mg/dl (70-99)
--- NOTE | 2025-05-09 14:09 | CM ---
Spoke with [place] at [facility] she has a bed tomorrow.
Pt will be on Nebulizer Spoke with Melissa at [facility] and she said they have Nebulizer on site.
IMM reviewed with patient IMM signed on chart.
Ly
report when obtain tomorrow

PLAN To [facility] at [place]
--- NOTE | 2025-05-09 14:57 | W.PN.PUL3 ---
Today's Communication / Plan
-
continue nebulizer therapy when the rehabilitation
Prednisone taper
Complete antibiotic therapy
Discharge planning
Assessment
-
In brief, 75 old female s/p right hemicolectomy for newly detected cecal cancer, developed postop worsening pedal edema along with increasing cough, greenish expectoration and wheezing. Pulmonary service was consulted for further input.
#1. Dyspnea
- Multifactorial. Patient has b/l wheezing consistent with asthma exacerbation, also has purulent bronchitis and is volume overloaded on exam
- Continue diuresis, bronchodilators and Antibiotics.
#2. Acute exacerbation of Asthma
-Lung exam still with expiratory wheezing 07/08/2024.
-Not on oxygen supplement
- Continue Singulair
- Continue budesonide Neb BID
- Continue albuterol qid nebulized. In view of thick and difficult to expectorate phlegm, Ipratropium dc.
- Continue 3% NS Nebulized BID for thick and difficult to expectorate mucous
- Continue Mucinex BID
- With recent surgery, minimize steroids. --> Prednisone decreased to 30 mg, continue to taper down every 72 hours to off.
- Above regimen should continue during rehabilitation.
#3. Acute purulent bronchitis
- Patient has new onset greenish expectoration, thick
- No obvious pneumonic infiltrate on CXR
- Continue Doxycycline-complete 5 days.
C sputum culture negative to date
#4. Acute on chronic HFpEF
- LVEF 60-65% per cardiology note, normal RV. Suspect volume overload is iatrogenic with IVF, surgery etc. Steroids also likely contributing to fluid retention.
- BNP elevated at 1280
- Patient reports weight gain as well as significant increase in pedal edema
- Continue Lasix IV per primary service
#5. H/o Chronic pedal edema/lymphedema
- Reported h/o chronic pedal edema, now significantly increased since hospitalization
- Suspect Amlodipine is also contributing to pedal edema. D/c Norvasc for now. Monitor BP
- Diurese as tolerated
- Patient has been on chronic suppressive treatment with Keflex for recurrent cellulitis per ID service as out patient.
#5. h/o Aortic stenosis
- S/p TAVR 08/2023
- Continue diuresis PRN
Other medical diagnoses:
- Colon cancer, s/p Robotic Right hemicolectomy 04/2025
- HTN
- HLD
- DM
Discussed with Dr. Tripp -okay to discharge her from my perspective.
Sign off
Data:
CXR 04/2025: Small bilateral pleural effusions, slightly improved from recent radiograph.
No convincing radiographic evidence for active vascular congestion.
LE US 04/2025: No DVT
Subjective Data
-
Date of Service:
Date of Service: May 09, 2025
Chief Complaint: Pulmonary Follow Up (Dyspnea/asthma exacerbation.)
Subjective:
From the respiratory perspective patient feels better
No significant phlegm production
Objective Data
Data Reviewed
Vital Signs / I&O / Oxygen:
Vital Signs
Temp Pulse Resp BP Pulse Ox
97.8 F 75 14 138/54 98
05/08/25 23:18 05/09/25 11:15 05/09/25 11:15 05/09/25 10:11 05/09/25 13:48
Intake and Output
05/08/25 05/09/25 05/10/25
06:59 06:59 06:59
Intake Total 420 / 420 1200 / 1200
Balance 420 / 420 1200 / 1200
SaO2 98
Nasal Cannula flow liters per 2
minute
Physical Exam
General: Comfortable
HEENT: Normocephalic
Cardiovascular: S1-S2, Regular Rhythm, Murmur (n) and Rub (n)
Respiratory: Wheeze (Minimal expiratory. Improved.), Crackles (n), Rhonchi (few) and Non-Labored Respirations
GI: Soft, Non Distended and Non Tender
Neurology: Awake, Alert and No Motor Deficits
Skin: Good Color
Labs/Micro/Reports
Lab Data
05/07/25 05:37
05/09/25 06:34
Microbiology
05/05/25 20:42 Sputum Respiratory Culture - Final
Usual Respiratory Claudine
05/05/25 20:42 Sputum Gram Stain - Final
[2025-05-09 15:32] VITALS: BP 136/57
[2025-05-09] MEDS: LOVENOX 40 MG SC (17:28)
[2025-05-09] MEDS: LIPITOR 20 MG PO (17:28)
[2025-05-09] MEDS: NOVOLOG FLEXPEN-LOW RESISTANCE 1 UNITS SC (17:30)
[2025-05-09 17:31] LABS: Glucose - Point of Care 163 mg/dl (70-99)
[2025-05-09] MEDS: XALATAN OPHTHALMIC SOLUTION 1 DROP BOTH EYES (21:37)
[2025-05-09 21:43] LABS: Glucose - Point of Care 225 mg/dl (70-99)
[2025-05-09] MEDS: SINGULAIR 10 MG PO (22:29)
[2025-05-09 23:12] VITALS: BP 130/48
[2025-05-10] MEDS: TYLENOL PO ×2 (00:24→04:19)
[2025-05-10] MEDS: TESSALON PERLES 100 MG PO (04:19)
[2025-05-10] MEDS: ULTRAM 50 MG PO ×2 (04:59→21:08)
[2025-05-10 06:00] VITALS: BMI 40.2
[2025-05-10] MEDS: ANESTHETIC LOZENGE 1 LOZENGE PO (06:34)
[2025-05-10 07:00] VITALS: BP 137/55
[2025-05-10 07:14] LABS: Glucose - Point of Care 102 mg/dl (70-99)
[2025-05-10] MEDS: PULMICORT 0.5 MG INH ×2 (07:16→19:11)
[2025-05-10] MEDS: SODIUM CHLORIDE 3% FOR INHALATION 1 VIAL INH ×2 (07:16→19:11)
[2025-05-10] MEDS: VENTOLIN NEBULES 2.5 MG INH (07:16)
[2025-05-10] MEDS: LOW STRENGTH ASPIRIN 81 MG PO (09:16)
[2025-05-10] MEDS: NOVOLOG FLEXPEN-LOW RESISTANCE SC ×2 (09:16→12:46)
[2025-05-10] MEDS: DETROL LA 4 MG PO (09:17)
[2025-05-10] MEDS: PEPCID 20 MG PO ×2 (09:18→21:01)
[2025-05-10] MEDS: DELTASONE PO (09:18)
[2025-05-10] MEDS: TYLENOL 650 MG PO ×4 (09:18→21:01)
[2025-05-10] MEDS: LASIX 40 MG PO (09:18)
[2025-05-10] MEDS: MUCINEX 600 MG PO ×2 (09:18→21:01)
[2025-05-10] MEDS: KEFLEX 500 MG PO ×2 (09:18→21:01)
[2025-05-10] MEDS: ZYLOPRIM 300 MG PO (09:18)
[2025-05-10] MEDS: PLAVIX 75 MG PO (09:18)
[2025-05-10] MEDS: ZOLOFT 100 MG PO (09:18)
[2025-05-10] MEDS: DESENEX/MITRAZOL/ZEASORB 1 APPLIC TOPICAL ×2 (09:19→21:01)
[2025-05-10] MEDS: ZESTRIL 10 MG PO (09:19)
[2025-05-10] MEDS: HYDROPHOR 1 APPLIC TOPICAL (09:19)
[2025-05-10] MEDS: TRIAMCINOLONE ACETONIDE 0.1% CREAM 1 APPLIC TOPICAL (09:20)
[2025-05-10] MEDS: DECADRON IV (09:20)
--- NOTE | 2025-05-10 09:30 | W.PN.CRS1 ---
Today's Communication / Plan
-
Doing well surgically
Transferred to medicine service
Assessment/Plan
-
75 yo pt with h/o AVR, DM, asthma and HFpEF now POD #10, robotic right colectomy for cecal cancer
Doing well from surgical standpoint with good bowel recovery; however developed asthma exacerbation with acute purulent bronchitis during her recovery
AFVSS
On steroid taper
Plan:
-continue with diabetic diet
-hospitalist and pulm following
-C/w Plavix and ASA
-OOB as tolerated with PT/OT, will likely need SNF upon discharge, CM following
-Doing well from a surgical perspective
- Given the wheezing, she will likely stay another day. I spoke to the hospitalist and we will transfer to his service to continue treatment.
Subjective Data
Procedure
04/28/2025- Robotic right colectomy with intracorporeal anastomosis
Subjective Data
Date of Service: May 10, 2025
Patient states she has no abdominal pain. Denies nausea or vomiting. Tolerating diet. Her main complaint is her cough and wheezing.
Objective Data
-
Vital Signs
Temp Pulse Resp BP Pulse Ox
98 F 76 15 132/49 97
05/10/25 07:00 05/10/25 09:19 05/10/25 07:19 05/10/25 09:19 05/10/25 07:00
Intake & Output
05/09/25 05/10/25 05/11/25
06:59 06:59 06:59
Intake Total 1200 / 1200
Balance 1200 / 1200
Intake:
Oral fluids 1200 / 1200
Other:
How many times incontinent 1
MODERATE amount urine
How many times incontinent 2 1
SATURATED amount urine
Number of approximated MODERATE 2
amounts of urine
Number of approximated LARGE 1
amounts of urine
Lab Results
05/07/25 05:37
05/09/25 06:34
Physical Exam
-
General: No Acute Distress and AOx3
Abdomen: Soft, Non Distended and Non Tender
Skin: Warm and Dry
Incision: Clear, Dry, Intact
--- NOTE | 2025-05-10 09:33 | W.PN.PUL3 ---
Today's Communication / Plan
-
Initiate IV corticosteroids
Continue nebulizer therapy budesonide twice a day
Start DuoNebs
3% saline
Remains bronchospastic
Completed antibiotic therapy
Will consider low-dose macrolide therapy for anti-inflammatory properties if symptoms continue
Assessment
-
In brief, 75 old female s/p right hemicolectomy for newly detected cecal cancer, developed postop worsening pedal edema along with increasing cough, greenish expectoration and wheezing. Pulmonary service was consulted for further input.
#1. Dyspnea
- Multifactorial. Patient has b/l wheezing consistent with asthma exacerbation, also has purulent bronchitis and is volume overloaded on exam
- Continue diuresis, bronchodilators and Antibiotics.
#2. Acute exacerbation of Asthma
-Unfortunately, continues to have bronchospasm-expiratory wheezing. 05/10/2025.
-Not on oxygen supplement
- Continue Singulair
- Continue budesonide Neb BID
- Will ramp up nebulizers-DuoNebs 4 times a day.
- Continue 3% NS Nebulized BID for thick and difficult to expectorate mucous
- Continue Mucinex BID
- Due to ongoing wheezing will place back on IV dexamethasone.
- Above regimen should continue during rehabilitation.
#3. Acute purulent bronchitis
- Patient has new onset greenish expectoration, thick
- No obvious pneumonic infiltrate on CXR
-Sputum culture with normal respiratory doni.
- Continue Doxycycline-complete 5 days.
-Will consider low-dose macrolide therapy for anti-inflammatory properties if there is no improvement with the steroids.
#4. Acute on chronic HFpEF
- LVEF 60-65% per cardiology note, normal RV. Suspect volume overload is iatrogenic with IVF, surgery etc. Steroids also likely contributing to fluid retention.
- BNP elevated at 1280
-Repeat proBNP 838 (05/09/2025)
- Patient reports weight gain as well as significant increase in pedal edema
- Diuresis as able.
#5. H/o Chronic pedal edema/lymphedema
- Reported h/o chronic pedal edema, now significantly increased since hospitalization
- Suspect Amlodipine is also contributing to pedal edema. D/c Norvasc for now. Monitor BP
- Diurese as tolerated
- Patient has been on chronic suppressive treatment with Keflex for recurrent cellulitis per ID service as out patient.
#5. h/o Aortic stenosis
- S/p TAVR 08/2023
- Continue diuresis PRN
Other medical diagnoses:
- Colon cancer, s/p Robotic Right hemicolectomy 04/2025
- HTN
- HLD
- DM
Discussed with Dr. Tripp -okay to discharge her from my perspective.
Sign off
Data:
CXR 04/2025: Small bilateral pleural effusions, slightly improved from recent radiograph.
No convincing radiographic evidence for active vascular congestion.
LE US 04/2025: No DVT
Subjective Data
-
Date of Service:
Date of Service: May 10, 2025
Chief Complaint: Pulmonary Follow Up (Dyspnea/asthma exacerbation.)
Subjective:
Patient denies any complaints at the moment
Developed some tachycardia yesterday
Denies any chest tightness or chest pain
Sitting in the chair eating breakfast
She feels nauseous
Review of Systems
Cardiopulmonary: Dyspnea (None at rest), Cough and Wheezing
Objective Data
Data Reviewed
Vital Signs / I&O / Oxygen:
Vital Signs
Temp Pulse Resp BP Pulse Ox
98 F 76 15 132/49 97
05/10/25 07:00 05/10/25 09:19 05/10/25 07:19 05/10/25 09:19 05/10/25 07:00
Intake and Output
05/09/25 05/10/25 05/11/25
06:59 06:59 06:59
Intake Total 1200 / 1200
Balance 1200 / 1200
SaO2 97
Nasal Cannula flow liters per 2
minute
Physical Exam
General: Comfortable
HEENT: Normocephalic
Cardiovascular: S1-S2, Regular Rhythm, Murmur (n) and Rub (n)
Respiratory: Wheeze (Expiratory bilaterally), Crackles (n), Rhonchi (few) and Non-Labored Respirations
GI: Soft, Non Distended and Non Tender
Neurology: Awake, Alert, Oriented and No Motor Deficits
Skin: Good Color and Other (Lymphedema chronic)
Labs/Micro/Reports
Lab Data
05/07/25 05:37
05/09/25 06:34
Microbiology
05/05/25 20:42 Sputum Respiratory Culture - Final
Usual Respiratory Doni
05/05/25 20:42 Sputum Gram Stain - Final
[2025-05-10] MEDS: DECADRON 4 MG IV ×2 (10:10→21:19)
[2025-05-10] MEDS: ZOFRAN 4 MG IV (10:10)
[2025-05-10] MEDS: DUONEB 3 ML INH ×3 (11:09→19:11)
--- NOTE | 2025-05-10 12:09 | W.PN.HOSP.TC ---
Today's Communication/Plan
-
IV steroids
Assessment / Plan
Assessment / Plan
Physical exam:
General: Acutely ill
HEENT: Normocephalic, Atraumatic and Moist Mucous Membranes
Respiratory: Bilateral wheezes worse than before; Negative Rales or Rhonchi
Cardiac: Regular Rhythm and S1/S2
GI: Soft, Nontender and Nondistended
Musculoskeletal: No Clubbing, No Cyanosis. Bilateral lower extremity edema but much decreased.
Neuro: Awake, Alert and Oriented, no neurological deficit
Psych: Calm
A/P:
Patient is 75 years old female with multiple comorbidities admitted for robotic right colectomy for cecal cancer. Hospitalist consulted for dyspnea multifactorial etiology. Discussed with colorectal surgery and will be transferred to our service
today on 05/10 given ongoing medical issues.
Dyspnea-multifactorial, acute asthma exacerbation + acute exacerbation of heart failure+ acute bronchitis:
Continue steroids--> switch to IV steroids today dexamethasone 4 mg every 12 hours. Discussed with pulmonary in person.
Continue diuretics
Completed doxycycline. Considering macrolide.
Echocardiogram done.
Acapella
Bronchodilators and 3% saline
Sinus tachycardia:
Cardiac monitoring
She reports history of ?paroxysmal A-fib at some point in the past. Continue to monitor.
Nausea:
Antiemetics as needed
Hold GLP-1, Myrbetriq, and Jardiance for now
Acute on chronic HFpEF and recent TAVR:
Continue oral furosemide 40 mg daily
Admission BNP elevated 1280
Weight down overall
Reviewed echocardiogram
Cecal cancer status post right colectomy:
Postop doing well
Colorectal surgery following
DVT prophylaxis:
Lovenox SQ
CODE STATUS:
Full code
Total time spent on today's encounter was 36 minutes which included time spent in counseling the patient/family regarding diagnosis and treatment plan as listed above, goals of care, and symptom management. Case was discussed with nursing staff,
specialists, and care coordinators/case management. All labs and imaging personally reviewed by me. Remainder the time spent in detailed review of previous records, lab data, imaging, and other medical provider documentation.
Anticipated Discharge: 24 - 48 hours
Subjective/Interval History
-
Date of Service: May 10, 2025
Patient today with more wheezing and cough. She is also having nausea on and off. Patient also hungrier.
Objective Data
-
Vital Signs:
Vital Signs
Temp Pulse Resp BP Pulse Ox
98 F 75 15 132/49 97
05/10/25 07:00 05/10/25 11:11 05/10/25 11:11 05/10/25 09:19 05/10/25 11:12
I&O
05/09/25 05/10/25 05/11/25
06:59 06:59 06:59
Intake Total 1200 / 1200 240 / 240
Balance 1200 / 1200 240 / 240
[2025-05-10 12:27] LABS: Glucose - Point of Care 129 mg/dl (70-99)
[2025-05-10 15:40] VITALS: BP 128/67
[2025-05-10 16:48] LABS: Glucose - Point of Care 191 mg/dl (70-99)
[2025-05-10] MEDS: LOVENOX 40 MG SC (17:15)
[2025-05-10] MEDS: LIPITOR 20 MG PO (17:15)
[2025-05-10] MEDS: NOVOLOG FLEXPEN-LOW RESISTANCE 1 UNITS SC (17:16)
[2025-05-10 19:36] VITALS: BP 134/46
[2025-05-10] MEDS: SINGULAIR 10 MG PO (21:01)
[2025-05-10] MEDS: XALATAN OPHTHALMIC SOLUTION 1 DROP BOTH EYES (21:02)
[2025-05-10] MEDS: ATIVAN 0.25 MG PO (21:09)
[2025-05-10 21:17] LABS: Glucose - Point of Care 260 mg/dl (70-99)
[2025-05-10 23:20] VITALS: BP 127/52
[2025-05-11] VITALS (7 sets, daily range): BP systolic 120–153; BP diastolic 46–65; PULSE 94
[2025-05-11] MEDS: TYLENOL PO ×3 (02:21→18:21)
[2025-05-11 06:23] LABS: Hematocrit 33.4 % (37.0-47.0); Hemoglobin 10.4 g/dL (12.0-16.0)
[2025-05-11 07:00] LABS: Blood Urea Nitrogen 40 mg/dl (7-17); Calcium 8.4 mg/dl (8.4-10.2); Carbon Dioxide 33 mmol/L (22-30); Chloride 95 mmol/L (98-107); Estimated Creatinine Clearance 63 ml/min; Glucose 155 mg/dl (70-99); Potassium 5.0 mmol/L (3.5-5.1); Sodium 131 mmol/L (135-145); eGFR 59.12
[2025-05-11] MEDS: DUONEB 3 ML INH ×4 (07:43→19:38)
[2025-05-11] MEDS: SODIUM CHLORIDE 3% FOR INHALATION 1 VIAL INH ×2 (07:43→19:38)
[2025-05-11] MEDS: PULMICORT 0.5 MG INH ×2 (07:43→19:38)
[2025-05-11 07:53] LABS: Glucose - Point of Care 113 mg/dl (70-99)
[2025-05-11] MEDS: DETROL LA 4 MG PO (09:24)
[2025-05-11] MEDS: ZOLOFT 100 MG PO (09:24)
[2025-05-11] MEDS: PLAVIX 75 MG PO (09:24)
[2025-05-11] MEDS: ZESTRIL 10 MG PO (09:24)
[2025-05-11] MEDS: MUCINEX 600 MG PO ×2 (09:24→20:29)
[2025-05-11] MEDS: NOVOLOG FLEXPEN-LOW RESISTANCE SC ×2 (09:24→12:40)
[2025-05-11] MEDS: KEFLEX 500 MG PO ×2 (09:25→20:29)
[2025-05-11] MEDS: ZYLOPRIM 300 MG PO (09:25)
[2025-05-11] MEDS: LASIX 40 MG PO (09:25)
[2025-05-11] MEDS: TYLENOL 650 MG PO ×4 (09:25→23:33)
[2025-05-11] MEDS: PEPCID 20 MG PO ×2 (09:25→20:29)
[2025-05-11] MEDS: LOW STRENGTH ASPIRIN 81 MG PO (09:25)
[2025-05-11] MEDS: HYDROPHOR 1 APPLIC TOPICAL (09:25)
[2025-05-11] MEDS: DESENEX/MITRAZOL/ZEASORB 1 APPLIC TOPICAL ×2 (09:26→20:28)
[2025-05-11] MEDS: TRIAMCINOLONE ACETONIDE 0.1% CREAM 1 APPLIC TOPICAL (09:26)
[2025-05-11] MEDS: DECADRON 4 MG IV (09:27)
[2025-05-11] MEDS: TESSALON PERLES 100 MG PO (09:37)
[2025-05-11] MEDS: ANESTHETIC LOZENGE 1 LOZENGE PO (09:38)
--- NOTE | 2025-05-11 11:07 | W.PN.PUL3 ---
Today's Communication / Plan
-
Continue IV dexamethasone-decrease dose today-hopefully can transition to prednisone 40 mg tomorrow and decrease by 10 mg every 48 hours to off.
Continue nebulizer therapy Pulmicort/DuoNeb-should continue in the outpatient setting
Acapella device
Completed antibiotics
Incentive spirometry
Assessment
-
In brief, 75 old female s/p right hemicolectomy for newly detected cecal cancer, developed postop worsening pedal edema along with increasing cough, greenish expectoration and wheezing. Pulmonary service was consulted for further input.
#1. Dyspnea
- Multifactorial. Patient has b/l wheezing consistent with asthma exacerbation, also has purulent bronchitis and is volume overloaded on exam
- Continue diuresis, bronchodilators and Antibiotics.
#2. Acute exacerbation of Asthma
-Unfortunately, continues to have bronchospasm-expiratory wheezing. 05/10/2025.
-Not on oxygen supplement
- Continue Singulair
- Continue budesonide Neb BID
- Continue nebulizers-DuoNebs 4 times a day.
- Continue 3% NS Nebulized BID for thick and difficult to expectorate mucous
- Continue Mucinex BID
- Due to ongoing wheezing will place back on IV dexamethasone-05/10/2025-reduction of the dose to a blood continue IV.
Upon discharge will transition to prednisone 40 mg and decrease my 10 mg every 48 hours to off.
- Above regimen should continue during rehabilitation.
#3. Acute purulent bronchitis
- Patient has new onset greenish expectoration, thick
- No obvious pneumonic infiltrate on CXR
-Sputum culture with normal respiratory doni.
- Continue Doxycycline-complete 5 days.
-Will consider low-dose macrolide therapy for anti-inflammatory properties if there is no improvement with the steroids-hold for now.
#4. Acute on chronic HFpEF
- LVEF 60-65% per cardiology note, normal RV. Suspect volume overload is iatrogenic with IVF, surgery etc. Steroids also likely contributing to fluid retention.
- BNP elevated at 1280
-Repeat proBNP 838 (05/09/2025)
- Patient reports weight gain as well as significant increase in pedal edema
- Diuresis as able.
#5. H/o Chronic pedal edema/lymphedema
- Reported h/o chronic pedal edema, now significantly increased since hospitalization
- Suspect Amlodipine is also contributing to pedal edema. D/c Norvasc for now. Monitor BP
- Diurese as tolerated
- Patient has been on chronic suppressive treatment with Keflex for recurrent cellulitis per ID service as out patient.
#5. h/o Aortic stenosis
- S/p TAVR 08/2023
- Continue diuresis PRN
Other medical diagnoses:
- Colon cancer, s/p Robotic Right hemicolectomy 04/2025
- HTN
- HLD
- DM
Discussed with Dr. Tripp-will keep 1 additional day. Since she is clinically improved Taper steroids today and transition to prednisone tomorrow.
Hopefully discharge to rehab tomorrow
Data:
CXR 04/2025: Small bilateral pleural effusions, slightly improved from recent radiograph.
No convincing radiographic evidence for active vascular congestion.
LE US 04/2025: No DVT
Subjective Data
-
Date of Service:
Date of Service: May 11, 2025
Chief Complaint: Pulmonary Follow Up (Dyspnea/asthma exacerbation.)
Subjective:
Patient feels better from the respiratory perspective
Minimal phlegm production
Denies chest tightness
Review of Systems
Cardiopulmonary: Dyspnea (Improved), Cough ( improved) and Sputum Production (Minimal)
Objective Data
Data Reviewed
Vital Signs / I&O / Oxygen:
Vital Signs
Temp Pulse Resp BP Pulse Ox
97.6 F 70 20 147/56 96
05/11/25 08:00 05/11/25 08:00 05/11/25 08:00 05/11/25 08:00 05/11/25 08:00
Intake and Output
05/10/25 05/11/25 05/12/25
06:59 06:59 06:59
Intake Total 240 / 240
Balance 240 / 240
SaO2 96
Nasal Cannula flow liters per 2
minute
Physical Exam
General: Comfortable
HEENT: Normocephalic
Cardiovascular: S1-S2, Regular Rhythm, Murmur (n) and Rub (n)
Respiratory: Wheeze (Better air movement, wheezing improved), Crackles (n), Rhonchi (few) and Non-Labored Respirations
GI: Soft, Non Distended and Non Tender
Neurology: Awake, Alert, Oriented and No Motor Deficits
Skin: Good Color and Other (Lymphedema chronic)
Labs/Micro/Reports
Lab Data
05/11/25 05:42
05/11/25 05:42
Microbiology
05/05/25 20:42 Sputum Respiratory Culture - Final
Usual Respiratory Doni
05/05/25 20:42 Sputum Gram Stain - Final
[2025-05-11 11:52] LABS: Glucose - Point of Care 143 mg/dl (70-99)
--- NOTE | 2025-05-11 11:54 | W.PN.HOSP.TC ---
Today's Communication/Plan
-
IV steroids. Discharge plan
Assessment / Plan
Assessment / Plan
Physical exam:
General: Acutely ill
HEENT: Normocephalic, Atraumatic and Moist Mucous Membranes
Respiratory: Bilateral wheezes worse than before; Negative Rales or Rhonchi
Cardiac: Regular Rhythm and S1/S2
GI: Soft, Nontender and Nondistended
Musculoskeletal: No Clubbing, No Cyanosis. Bilateral lower extremity edema but much decreased.
Neuro: Awake, Alert and Oriented, no neurological deficit
Psych: Calm
A/P:
Patient is 75 years old female with multiple comorbidities admitted for robotic right colectomy for cecal cancer. Hospitalist consulted for dyspnea multifactorial etiology. Discussed with colorectal surgery and will be transferred to our service
today on 05/10 given ongoing medical issues.
Dyspnea-multifactorial, acute asthma exacerbation + acute exacerbation of heart failure+ acute bronchitis:
Continue steroids--> taper IV steroids today from 4 mg every 12 hours to 2 mg every 12 hours and possibly switch to oral tomorrow. Discussed with pulmonary in person.
Continue diuretics
Completed doxycycline.
Echocardiogram done.
Acapella
Bronchodilators and 3% saline
Sinus tachycardia:
Cardiac monitoring
She reports history of ?paroxysmal A-fib at some point in the past. Continue to monitor.
Nausea:
Antiemetics as needed
Hold GLP-1, Myrbetriq, and Jardiance for now
Acute on chronic HFpEF and recent TAVR:
Continue oral furosemide 40 mg daily
Admission BNP elevated 1280
Weight down overall
Reviewed echocardiogram
Cecal cancer status post right colectomy:
Postop doing well
Colorectal surgery following
DVT prophylaxis:
Lovenox SQ
CODE STATUS:
Full code
Total time spent on today's encounter was 35 minutes which included time spent in counseling the patient/family regarding diagnosis and treatment plan as listed above, goals of care, and symptom management. Case was discussed with nursing staff,
specialists, and care coordinators/case management. All labs and imaging personally reviewed by me. Remainder the time spent in detailed review of previous records, lab data, imaging, and other medical provider documentation.
Anticipated Discharge: Within 24 hours
Subjective/Interval History
-
Date of Service: May 11, 2025
Patient feels better overall, less wheezing today. Cough is less but had some blood-tinged sputum last evening. Afebrile. Off oxygen
Objective Data
-
Labs:
Laboratory Results
05/11/25
05:42
Hgb 10.4 L
Hct 33.4 L
Sodium 131 L
Potassium 5.0
Chloride 95 L
Carbon Dioxide 33 H
BUN 40 H
Creatinine 1.0
Glucose 155 H
Calcium 8.4
Vital Signs:
Vital Signs
Temp Pulse Resp BP Pulse Ox
97.6 F 108 18 147/56 93
05/11/25 08:00 05/11/25 11:45 05/11/25 11:45 05/11/25 08:00 05/11/25 11:45
I&O
05/10/25 05/11/25 05/12/25
06:59 06:59 06:59
Intake Total 240 / 240
Balance 240 / 240
[2025-05-11] MEDS: ATIVAN 0.25 MG PO ×2 (13:03→21:57)
--- NOTE | 2025-05-11 13:53 | CM ---
Chart reviewed; Anticipated discharge is 24 hours
CM met with patient at bedside; she stated that she does not expect to be discharged until Thursday
Per Ly, patient added to waitlist for a SNF bed; they don't have a confirmed bed at this time. CM will follow up w/ facility when stable for discharge
IMM benefit explained; form signed @ 0018
--- NOTE | 2025-05-11 15:10 | PTCARENOTE ---
Pt sitting up to chair after walking to the BR. It was noted Pt's HR up to 140's on mixer dry food products. Rhythm showing Afib w/ RVR. Pt denies palpitations at this time. Pt is anxious, increased respirations up to 24 noted. Pt easily calmed with
coaching, resp. now calm at 18/min. EKG taken and Attending Hospitalist notified. Will await further orders. Pt now sitting quietly, no longer in distress. Call lizarraga is within reach.
--- NOTE | 2025-05-11 16:53 | CON.CAR ---
Addendum entered and electronically signed by Tejinder Parra DO 05/11/25 20:15:
I saw and examined the patient.
The Manager Gallery's note was reviewed and I agree with the note.
Comment:
Plan:
Post op AFib with spontaneous conversion to sinus rhythm
Request records from outside dye weigher.
Recent echo wtih preserved EF
Consider transition from anti-platelet therapy to anticoagulation given recurrent Afib
Discussed consideration for amiodarone however, pt declines this as she felt that she did not tolerate amiodarone in the past
Given her allergies and pulm hx, avoiding beta araceli and long acting cardizem for now. Will add short acting Cardizem for now
Cont post op care
Discussed with her sister at bedside
Original Note:
Consultation
Consultation Request
Date/Time Consultation Performed: 05/11/25
Requesting Provider: Dr. Tripp
Performing Provider: Sally Canada PA-C for Dr. Parra
Reason for Consultation: afib
Medical History
-
Chief Complaint: cecal mass
History of Present Illness:
Patient is a 75-year-old female with past medical history of severe status post TAVR 08/2023, postoperative atrial fibrillation, CHF with preserved EF, hypertension, hyperlipidemia, type 2 diabetes ,GI bleeding/anemia on OAC as well as Plavix in
past resulting in discovery of cecal mass who underwent robotic right colectomy on 04/24/2025. Her postoperative course was complicated by multifactorial dyspnea from acute asthma exacerbation, acute bronchitis, and acute heart failure. She is on
steroids and nebulizers per pulmonology. She is diuresing with p.o. Lasix 40 mg daily. Then was noted on telemetry to have paroxysmal atrial fibrillation with RVR. She spontaneously converted back to sinus rhythm. Cardiology consulted for
evaluation. She reports she felt tired associated with the A-fib, however did not feel palpitations. She reports she has some continued dyspnea on exertion. Denies chest pain
PMH:
Severe status post TAVR 08/2023 at [facility]
Postoperative atrial fibrillation
GI bleeding/anemia on anticoagulation, Plavix
CHF with preserved EF
Hypertension
Hyperlipidemia
Type 2 diabetes
Morbid obesity
Past Medical History
Past Medical History: Other (in HPI)
Social History
Tobacco: Non-Smoker
Alcohol: None
Living: With Family
Employment: Retired (nurse)
Family History
Family History: Reviewed & Not Pertinent
Allergies / Home Medications
Allergy/AdvReac Type Severity Reaction Status Date / Time
adhesive tape Allergy Skin Tear Verified 04/28/25 07:01
povidone-iodine (From Allergy Redness Verified 04/28/25 07:01
Betadine) and itching
red dye Allergy Hives, Verified 04/28/25 07:01
Blotchy
soap Allergy Redness, Verified 04/28/25 07:01
Itchy
�Medication �Instructions �Recorded �Confirmed �Type
Comfry Oil 1 applic topical PRN PRN dry skin 04/27/25 04/28/25 History
Comfry Salve 1 dose topical PRN PRN dry skin 04/27/25 04/28/25 History
Instaflex 1 tab PO DAILY 04/27/25 04/27/25 History
Lymph Move 5 ml PO DAILY 04/27/25 04/27/25 History
acetaminophen 650 mg 1,300 mg PO PRN PRN Pain 04/27/25 04/27/25 History
tablet,extended release
allopurinol 300 mg tablet 300 mg PO DAILY 04/27/25 04/28/25 History
atorvastatin 20 mg tablet 20 mg PO QPM 04/27/25 04/28/25 History
cephalexin 500 mg tablet 500 mg PO BID 04/27/25 04/28/25 History
clopidogrel 75 mg tablet (Plavix) 75 mg PO DAILY 04/27/25 04/28/25 History
coQ10 (ubiquinol) 100 mg capsule 300 mg PO HS 04/27/25 04/28/25 History
dandelion root 0.7 ml PO DAILY 04/27/25 04/27/25 History
famotidine 20 mg tablet 20 mg PO BID 04/27/25 04/28/25 History
latanoprost (PF) 0.005 % eye drops 1 drp BOTH EYES HS 04/27/25 04/27/25 History
in a dropperette
lisinopril 10 mg tablet 10 mg PO DAILY 04/27/25 04/28/25 History
lorazepam 0.5 mg tablet 0.25 mg PO BID PRN Anxiety 04/27/25 04/28/25 History
mirabegron 50 mg tablet,extended 50 mg PO DAILY 04/27/25 04/28/25 History
release 24 hr (Myrbetriq)
montelukast 10 mg tablet 10 mg PO HS 04/27/25 04/28/25 History
multivitamin with minerals 2 tab PO DAILY 04/27/25 04/28/25 History
(Hair,Skin and Nails tablet)
semaglutide 0.25 mg or 0.5 mg (2 0.25 mg SC FR 04/27/25 04/27/25 History
mg/3 mL) subcutaneous pen injector
(Ozempic)
sertraline 100 mg tablet 100 mg PO DAILY 04/27/25 04/28/25 History
tizanidine 2 mg tablet 2 mg PO TID PRN Spasms 04/27/25 04/28/25 History
triamcinolone acetonide 0.1 % 1 applic topical DAILY Legs 04/27/25 04/28/25 History
topical cream
vit C 250 mg-vit E 90 mg-zinc 40 1 tab PO BID 04/27/25 04/28/25 History
mg-copper 1 [id number]
capsule (PreserVision AREDS-2)
tramadol 50 mg tablet 50 mg PO Q4HPRN PRN pain #20 tabs 05/01/25 Rx
tramadol 50 mg tablet 50 mg PO Q6H PRN pain #20 tabs 05/01/25 04/28/25 Rx
Review of Systems
-
History Source: Patient and Family
All other systems: Negative unless noted
Physical Exam
Vital Signs
Temp Pulse Resp BP Pulse Ox
97.7 F 85 20 140/65 95
05/11/25 15:52 05/11/25 15:52 05/11/25 15:52 05/11/25 15:52 05/11/25 15:29
Lab Results
05/11/25 05:42
05/11/25 05:42
Troponin I < 0.012 ng/ml 05/02/25 16:34
Haq-G-Bvdweglyjda Pept Cancelled 05/10/25 08:17
Physical Exam
General: No Apparent Distress, Comfortable and Other (Receiving breathing treatment. Sitting in chair. Obese)
HEENT: Normocephalic, Anicteric and Moist Mucous Membranes
Respiratory: Wheezes
Cardiac: S1/S2 and Regular Rhythm
GI: Soft, Non Tender, Non Distended, Normal Bowel Sounds and Other (Surgical incision sites clean dry and intact)
Musculoskeletal: No Clubbing, No Cyanosis and Edema (2+ edema of bilateral lower extremity with Tubigrip stockings in place)
Skin: Warm and Dry
Neuro: AO x 3
Impression / Plan
-
Primary dye weigher: Dr. Lee of [facility]
Assessment:
Cecal mass status post robotic right colectomy 04/28/2025
Acute on chronic heart failure with preserved EF
Acute asthma/bronchitis
Severe status post TAVR 08/2023 at [facility]
Postoperative atrial fibrillation 08/2023, with recurrence 05/09/2025 status post spontaneous conversion to sinus rhythm
GI bleeding/anemia on anticoagulation, Plavix
Hypertension
Hyperlipidemia
Type 2 diabetes
Morbid obesity
echo 09/09/2024 at OSH: Very technically difficult study, Definity used, mild concentric LVH, EF 60 to 65%, no regional wall motion abnormalities noted, status post number 29 mm Evolut transcatheter aortic valve replacement with mean gradient of 13
mmHg, MARIAN 2.1 cm�, no transvalvular AR, no paravalvular AR, moderate to severe MAC, no MR, left atrium mildly enlarged
Echo 05/09/2025: EF 60 to 65%, transcatheter aortic valve present and functioning well, no evidence of significant aortic regurgitation or paravalvular leak with mean aortic gradient 10 mmHg, MAC noted, mild MS, mild to moderate central MR, mild TR,
PAP 24 mmHg
Plan:
- Reviewed medical record from admission thus far
- Patient underwent robotic right colectomy 04/28/2025 for removal of cecal mass. Pathology pending. Progressing well and tolerating diet.
- Postoperatively, patient developed acute asthma and bronchitis exacerbation, pulmonary following. On steroids and nebulizers
- Also with evidence of acute on chronic heart failure with small pleural effusions by chest x-ray dated 05/05. EF preserved by echo earlier this year post TAVR as well as more recently 05/09/2025. Presently diuresing well on p.o. Lasix 40 mg
daily. Creatinine stable at 1.0. proBNP 838 as of 05/09. She does have issues with chronic lower extremity edema and reportedly has had cellulitis several times. Tubigrips in place
- Was noted to have atrial fibrillation with RVR on review of telemetry, confirmed by EKG 05/11/2025. She spontaneously converted back to sinus rhythm and remains in sinus rhythm at this time
- Discussed atrial fibrillation with patient and sister Jael at bedside.
- Will avoid BB with wheezing and asthma. will add cardizem (cd preparation avoided for now as coming up as interaction as history of red dye allergy) so will place on cardizem 30mg BID for now and follow on telemetry
- Discussed anticoagulation in setting of A-fib for prevention of stroke. She reports she previously was taken off of Eliquis due to bleeding. We will review records from primary dye weigher as well as review with surgery, as now that cecal mass
is removed, may be candidate for anticoagulation if mass was felt to be source of bleeding. [id number] score of at least 5 for age, female, hypertension, CHF, diabetes.
- She reports she previously was on amiodarone for paroxysmal A-fib in the setting of TAVR postop, however was then taken off of it due to concern for developing liver and lung side effects with long-term use. She states she would be hesitant about
going back on this medication
- Continue postoperative care
- Continue PT/OT. Plan is for SNF upon discharge
- Discussed with nursing
Data Reviewed
-
EKG: Tracing Personally Visualized and interpreted
Radiology: Report Reviewed by me
Medical Tests (Nuc Med, Echo etc): Report Reviewed by me
Labs: Labs Reviewed by me
Old Records: Reviewed
[2025-05-11 16:59] LABS: Glucose - Point of Care 201 mg/dl (70-99)
[2025-05-11] MEDS: NOVOLOG FLEXPEN-LOW RESISTANCE 2 UNITS SC (18:20)
[2025-05-11] MEDS: LIPITOR 20 MG PO (18:21)
[2025-05-11] MEDS: LOVENOX 40 MG SC (18:21)
[2025-05-11] MEDS: CARDIZEM 30 MG PO (20:25)
[2025-05-11] MEDS: DECADRON 2 MG IV (20:28)
[2025-05-11 21:35] LABS: Glucose - Point of Care 211 mg/dl (70-99)
[2025-05-11] MEDS: SINGULAIR 10 MG PO (21:57)
[2025-05-11] MEDS: XALATAN OPHTHALMIC SOLUTION 1 DROP BOTH EYES (21:57)
[2025-05-12 03:08] VITALS: BP 129/51
[2025-05-12] MEDS: ULTRAM 50 MG PO (04:25)
[2025-05-12] MEDS: SAFETUSSIN DM (SUGAR/ALCOHOL FREE) 200 MG PO ×2 (04:25→21:10)
[2025-05-12] MEDS: TYLENOL PO ×2 (04:27→13:56)
[2025-05-12 06:00] VITALS: BMI 39.9
[2025-05-12 07:45] LABS: Blood Urea Nitrogen 35 mg/dl (7-17); Calcium 8.5 mg/dl (8.4-10.2); Carbon Dioxide 32 mmol/L (22-30); Chloride 97 mmol/L (98-107); Estimated Creatinine Clearance 70 ml/min; Glucose 127 mg/dl (70-99); Magnesium 2.4 mg/dl (1.6-2.3); Potassium 4.7 mmol/L (3.5-5.1); Sodium 132 mmol/L (135-145); eGFR > 60.00
[2025-05-12 07:53] LABS: Glucose - Point of Care 125 mg/dl (70-99)
[2025-05-12 07:55] VITALS: BP 124/66
[2025-05-12] MEDS: DUONEB 3 ML INH ×4 (08:15→18:19)
[2025-05-12] MEDS: PULMICORT 0.5 MG INH ×2 (08:15→18:19)
[2025-05-12] MEDS: SODIUM CHLORIDE 3% FOR INHALATION 1 VIAL INH ×2 (08:15→18:20)
[2025-05-12] MEDS: NOVOLOG FLEXPEN-LOW RESISTANCE SC ×2 (09:24→13:06)
[2025-05-12] MEDS: ZYLOPRIM 300 MG PO (09:26)
[2025-05-12] MEDS: MUCINEX 600 MG PO ×2 (09:26→19:42)
[2025-05-12] MEDS: DETROL LA 4 MG PO (09:26)
[2025-05-12] MEDS: CARDIZEM 30 MG PO ×2 (09:27→19:43)
[2025-05-12] MEDS: ZESTRIL 10 MG PO (09:27)
[2025-05-12] MEDS: PLAVIX 75 MG PO (09:27)
[2025-05-12] MEDS: TYLENOL 650 MG PO ×3 (09:27→19:42)
[2025-05-12] MEDS: KEFLEX 500 MG PO ×2 (09:27→19:42)
[2025-05-12] MEDS: LASIX 40 MG PO (09:27)
[2025-05-12] MEDS: ZOLOFT 100 MG PO (09:27)
[2025-05-12] MEDS: LOW STRENGTH ASPIRIN 81 MG PO (09:28)
[2025-05-12] MEDS: DECADRON 2 MG IV (09:28)
[2025-05-12] MEDS: PEPCID 20 MG PO ×2 (09:28→19:42)
[2025-05-12] MEDS: HYDROPHOR 1 APPLIC TOPICAL (09:29)
[2025-05-12] MEDS: DESENEX/MITRAZOL/ZEASORB 1 APPLIC TOPICAL ×2 (09:31→21:10)
[2025-05-12] MEDS: TRIAMCINOLONE ACETONIDE 0.1% CREAM 1 APPLIC TOPICAL (09:32)
--- NOTE | 2025-05-12 11:24 | W.PN.HOSP.TC ---
Today's Communication/Plan
-
Discharge planning
Assessment / Plan
Assessment / Plan
Physical exam:
General: No acute distress
HEENT: Normocephalic, Atraumatic and Moist Mucous Membranes
Respiratory: Clear to auscultation bilateral; Negative Rales or Rhonchi
Cardiac: Regular Rhythm and S1/S2
GI: Soft, Nontender and Nondistended
Musculoskeletal: No Clubbing, No Cyanosis. Bilateral lower extremity edema much improved
Neuro: Awake, Alert and Oriented, no neurological deficit
Psych: Calm
A/P:
Patient is 75 years old female with multiple comorbidities admitted for robotic right colectomy for cecal cancer. Hospitalist consulted for dyspnea multifactorial etiology. Discussed with colorectal surgery and she was transferred to our service
on 05/10 given ongoing medical issues. Currently improving overall.
Dyspnea-multifactorial, acute asthma exacerbation + acute exacerbation of heart failure+ acute bronchitis:
Continue steroids--> taper IV steroids yesterday from 4 mg every 12 hours to 2 mg every 12 hours and possibly switch to oral later today. Discussed with pulmonary in person yesterday.
Continue diuretics
Completed doxycycline.
Echocardiogram done.
Acapella
Bronchodilators and 3% saline
Paroxysmal A-fib:
Cardiology consulted procedure
Started on calcium channel blockers, Cardizem 30 mg p.o. twice a day
Cardiology discussed with patient and surgical team and outpatient cardiology regarding anticoagulation or not
Nausea:
Antiemetics as needed
Hold GLP-1, Myrbetriq, and Jardiance for now and can restart the last 2 upon discharge
Acute on chronic HFpEF and recent TAVR:
Continue oral furosemide 40 mg daily
Admission BNP elevated 1280
Weight down overall
Reviewed echocardiogram
Cecal cancer status post right colectomy:
Postop doing well
Colorectal surgery following
DVT prophylaxis:
Lovenox SQ
CODE STATUS:
Full code
Total time spent on today's encounter was 35 minutes which included time spent in counseling the patient/family regarding diagnosis and treatment plan as listed above, goals of care, and symptom management. Case was discussed with nursing staff,
specialists, and care coordinators/case management. All labs and imaging personally reviewed by me. Remainder the time spent in detailed review of previous records, lab data, imaging, and other medical provider documentation.
Anticipated Discharge: Today
Subjective/Interval History
-
Date of Service: May 12, 2025
Less shortness of breath and cough. No chest pain. Afebrile
Objective Data
-
Labs:
Laboratory Results
05/12/25
06:52
Sodium 132 L
Potassium 4.7
Chloride 97 L
Carbon Dioxide 32 H
BUN 35 H
Creatinine 0.9
Glucose 127 H
Calcium 8.5
Vital Signs:
Vital Signs
Temp Pulse Resp BP Pulse Ox
98.2 F 88 16 124/66 96
05/12/25 07:55 05/12/25 08:19 05/12/25 08:19 05/12/25 07:55 05/12/25 08:19
I&O
05/11/25 05/12/25 05/13/25
06:59 06:59 06:59
Intake Total 240 / 240 620 / 620 480 / 480
Balance 240 / 240 620 / 620 480 / 480
[2025-05-12 11:32] LABS: Glucose - Point of Care 141 mg/dl (70-99)
--- NOTE | 2025-05-12 11:52 | W.PN.PUL3 ---
Today's Communication / Plan
-
Discharge planning today
Prednisone taper
Continue nebulizer DuoNeb/Pulmicort until symptoms clear out of rehab.
Can hold 3% saline at rehabilitation.
Incentive spirometry/Acapella device encourage
Increase activity encouraged
Recommend outpatient pulmonary follow-up
Completed doxycycline for bronchitis
Sign off
Assessment
-
In brief, 75 old female s/p right hemicolectomy for newly detected cecal cancer, developed postop worsening pedal edema along with increasing cough, greenish expectoration and wheezing. Pulmonary service was consulted for further input.
#1. Dyspnea
- Multifactorial. Patient has b/l wheezing consistent with asthma exacerbation, also has purulent bronchitis and is volume overloaded on exam
- Continue diuresis, bronchodilators and Antibiotics.
#2. Acute exacerbation of Asthma
-Unfortunately, continues to have bronchospasm-expiratory wheezing. Clinically improved 05/12/2025.
-Not on oxygen supplement
- Continue Singulair
- Continue budesonide Neb BID
- Continue nebulizers-DuoNebs 4 times a day.
- Continue 3% NS Nebulized BID for thick and difficult to expectorate mucous
- Continue Mucinex BID
- Due to ongoing wheezing will place back on IV dexamethasone-05/10/2025-transition to prednisone 05/12/2025 mg and decrease by 10 mg every 72 hours to off.
- Above regimen should continue during rehabilitation.
#3. Acute purulent bronchitis
- Patient has new onset greenish expectoration, thick
- No obvious pneumonic infiltrate on CXR
-Sputum culture with normal respiratory doni.
- Completed doxycycline-complete 5 days.
#4. Acute on chronic HFpEF
- LVEF 60-65% per cardiology note, normal RV. Suspect volume overload is iatrogenic with IVF, surgery etc. Steroids also likely contributing to fluid retention.
- BNP elevated at 1280
-Repeat proBNP 838 (05/09/2025)
- Patient reports weight gain as well as significant increase in pedal edema
- Diuresis as able.
#5. H/o Chronic pedal edema/lymphedema
- Reported h/o chronic pedal edema, now significantly increased since hospitalization
- Suspect Amlodipine is also contributing to pedal edema. D/c Norvasc for now. Monitor BP
- Diurese as tolerated
- Patient has been on chronic suppressive treatment with Keflex for recurrent cellulitis per ID service as out patient.
#5. h/o Aortic stenosis
- S/p TAVR 08/2023
- Continue diuresis PRN
Other medical diagnoses:
- Colon cancer, s/p Robotic Right hemicolectomy 04/2025
- HTN
- HLD
- DM
Agree with discharge planning today 05/12/2025
Data:
CXR 04/2025: Small bilateral pleural effusions, slightly improved from recent radiograph.
No convincing radiographic evidence for active vascular congestion.
LE US 04/2025: No DVT
Subjective Data
-
Date of Service:
Date of Service: May 12, 2025
Chief Complaint: Pulmonary Follow Up (Dyspnea/asthma exacerbation.)
Subjective:
Patient feels better clinically
Less wheezing
Remains mostly chair bound
Phlegm production continues intermittently
No hemoptysis
Review of Systems
Cardiopulmonary: Dyspnea on Exertion (improved) and Wheezing (improved)
Objective Data
Data Reviewed
Vital Signs / I&O / Oxygen:
Vital Signs
Temp Pulse Resp BP Pulse Ox
98.2 F 85 16 124/66 95
05/12/25 07:55 05/12/25 11:38 05/12/25 11:38 05/12/25 07:55 05/12/25 11:38
Intake and Output
05/11/25 05/12/25 05/13/25
06:59 06:59 06:59
Intake Total 240 / 240 620 / 620 480 / 480
Balance 240 / 240 620 / 620 480 / 480
SaO2 95
Nasal Cannula flow liters per 2
minute
Physical Exam
General: Comfortable
HEENT: Normocephalic
Cardiovascular: S1-S2, Regular Rhythm, Murmur (n) and Rub (n)
Respiratory: Wheeze (improved.), Crackles (n), Rhonchi (few) and Non-Labored Respirations
GI: Soft, Non Distended and Non Tender
Neurology: Awake, Alert, Oriented and No Motor Deficits
Skin: Good Color and Other (Lymphedema chronic)
Labs/Micro/Reports
Lab Data
05/11/25 05:42
05/12/25 06:52
[2025-05-12 15:30] VITALS: BP 131/46
[2025-05-12 15:45] VITALS: O2SAT 98
--- NOTE | 2025-05-12 16:37 | W.PN.CARDCBS ---
Addendum entered and electronically signed by Julio Dong MD 05/12/25 17:34:
I saw and examined the patient.
The Posting Clerk's note was reviewed and I agree with the note.
Comment: Briefly, 75-year-old woman past medical history of heart failure with preserved ejection fraction, aortic stenosis status post TAVR and paroxysmal atrial fibrillation who underwent right hemicolectomy to address cecal mass. Postprocedure
she was noted to have atrial fibrillation.
Currently maintaining sinus rhythm on review of telemetry
Given history of A-fib would recommend starting Eliquis if safe from a surgical perspective
Would stop aspirin and Plavix in favor of single agent
Continue diltiazem for rate control of atrial fibrillation
Appears euvolemic on exam today
Would continue oral Lasix 40 mg daily at discharge
Stable cardiac status, we will sign off
Patient should follow-up with her primary curve cleaner at [facility]
Original Note:
Today's Communication / Plan
-
continue cardizem short acting
start eliquis tonight. stop OP asa, plavix to reduce bleeding
po lasix 40mg daily
CBC in 1 week upon DC
follow up with Dr. Lee of [facility]
Impression / Plan
-
Primary curve cleaner: Dr. Lee of [facility]
Assessment:
Cecal mass status post robotic right colectomy 04/28/2025
Acute on chronic heart failure with preserved EF
Acute asthma/bronchitis
Severe status post TAVR 08/2023 at [facility]
Postoperative atrial fibrillation 08/2023, with recurrence 05/09/2025 status post spontaneous conversion to sinus rhythm
GI bleeding/anemia on anticoagulation, Plavix
Hypertension
Hyperlipidemia
Type 2 diabetes
Morbid obesity
echo 09/09/2024 at OSH: Very technically difficult study, Definity used, mild concentric LVH, EF 60 to 65%, no regional wall motion abnormalities noted, status post number 29 mm Evolut transcatheter aortic valve replacement with mean gradient of 13
mmHg, MARIAN 2.1 cm�, no transvalvular AR, no paravalvular AR, moderate to severe MAC, no MR, left atrium mildly enlarged
Echo 05/09/2025: EF 60 to 65%, transcatheter aortic valve present and functioning well, no evidence of significant aortic regurgitation or paravalvular leak with mean aortic gradient 10 mmHg, MAC noted, mild MS, mild to moderate central MR, mild TR,
PAP 24 mmHg
Plan:
- Patient underwent robotic right colectomy 04/28/2025 for cecal mass. Pathology pending
- Postoperatively treated for acute asthma and bronchitis exacerbation. Pulmonary has now signed off
- Also was treated for acute on chronic heart failure. Presently on p.o. Lasix 40 mg daily. Weight trending down if accurate
- she had a TAVR 08/2023 at [facility]. Echo checked this admission with preserved EF and well-functioning TAVR valve with no evidence of AR or paravalvular leak
- Was noted to have postop atrial fibrillation both in setting of TAVR, as well as this admission. She spontaneously converted back to sinus rhythm. She remains in mostly sinus rhythm with possible brief runs of A-fib versus A. tach at times,
particularly with exertion
- We added short acting Cardizem 30 mg twice daily as patient has history of allergy to red dye which was interaction for cardizem cd. Attempting to avoid beta-araceli with COPD
- We discussed anticoagulation with colorectal surgery today, and they were okay with initiation of Eliquis. Discussed with patient and she is also agreeable. Of note she has history of prior GI bleeding and anemia, however this was presumably in
the setting of cecal mass which is now removed. She will need CBC in 1 week upon discharge. Outpatient Plavix/aspirin have been stopped to reduce bleeding risk
- She reports she previously was on amiodarone for paroxysmal A-fib in the setting of TAVR postop, however was then taken off of it due to concern for developing liver and lung side effects with long-term use. She states she would be hesitant about
going back on this medication, deferred to her primary curve cleaner
- Continue postoperative care
- Continue PT/OT. Plan is for SNF upon discharge, possibly tomorrow
- Outpatient cardiac follow-up with Dr. Lee
- Discussed with nursing
Progress Note - Route Sales Trainee
Subjective
Date of Service: May 12, 2025
Reports breathing improving. Remains with good urine output on p.o. Lasix. No chest pain. Occasional palpitations
Objective
Labs:
05/11/25 05:42
05/12/25 06:52
Labs
Hgb 10.4 g/dL (12.0-16.0) L 05/11/25 05:42
Hct 33.4 % (37.0-47.0) L 05/11/25 05:42
Plt Count 463 10^3/uL (130-400) H 05/07/25 05:37
PT 13.7 Sec (11.4-14.6) 04/21/25 13:02
INR 1.02 04/21/25 13:02
APTT 35.4 Sec (23.4-35.0) H 04/21/25 13:02
Sodium 132 mmol/L (135-145) L 05/12/25 06:52
Potassium 4.7 mmol/L (3.5-5.1) 05/12/25 06:52
BUN 35 mg/dl (7-17) H 05/12/25 06:52
Creatinine 0.9 mg/dL (0.6-1.0) 05/12/25 06:52
Glucose 127 mg/dl (70-99) H 05/12/25 06:52
Vital Signs and I&O:
Vital Signs
Temp Pulse Resp BP Pulse Ox
98.2 F 79 18 131/46 94
05/12/25 15:30 05/12/25 15:30 05/12/25 15:30 05/12/25 15:30 05/12/25 15:30
Vital Signs
Temp Pulse Resp BP Pulse Ox
98.2 F 79 18 131/46 94
05/12/25 15:30 05/12/25 15:30 05/12/25 15:30 05/12/25 15:30 05/12/25 15:30
Intake & Output
05/10/25 05/11/25 05/12/25 05/13/25
07:59 07:59 07:59 07:59
Intake Total 240 / 240 1100 / 1100
Balance 240 / 240 1100 / 1100
Physical Exam
Physical Exam
GEN: No distress, awake, alert, oriented x3. Sitting in chair. Obese
HEENT: supple, anicteric, mmm, EOMI
LUNGS: CTA bilaterally, no wheezes/rales
CV: Reg, S1/S2, 1/6 syst LSB murmur
ABD: soft, BS+, NT/ND
EXT: No cyanosis, clubbing. trace edema of B/L LE
NEURO: Gross non-focal
SKIN: Warm, pink, dry. No rash. abd incisions well healing, mild nancy-incisional ecchymoses
[2025-05-12 16:48] LABS: Glucose - Point of Care 170 mg/dl (70-99)
[2025-05-12] MEDS: NOVOLOG FLEXPEN-LOW RESISTANCE 1 UNITS SC (17:29)
--- NOTE | 2025-05-12 17:59 | CM ---
F/U: ZAYNAB Kirk followed up on discharge with this patient. It took multiple calls and finally reached the Panel Installer at [facility] who said that due to reconstruction of parts of their facilities, they are not accepting patients
who do not live at their [facility]. Thus, ZAYNAB Kirk saw list of facilities made in [facility] so called the other 3, and only [facility] had a bed for tomorrow. ZAYNAB Kirk spoke to the patient who defer to her sister Pam. Sister Pam then got
the other sister on the phone, both were upset not being told the patient is ready.
Both at different times were yelling at ZAYNAB Kirk. Both eventually calmed down understanding that ZAYNAB Kirk is just the messenger and not the Hospitalist or really Surgery or Cardiology. Both sister want to speak to the Hospitalist so asked Nuha Tripp
to call tomorrow.Sisters do not want [facility]. Both were given a whole new list because there was no follow up on the SNF since initial [facility] referral. Both sisters will provide choices now that ZAYNAB Kirk discussed the SNF in the area.
Patient is Medicare so no Auth is needed when a facility is found and there is a bed. PLAN: SNF.
--- NOTE | 2025-05-12 18:06 | CM ---
F/U: ZAYNAB Kirk Reached the [employer] Line Tender at [place] who said that due to reconstruction of parts of their facilities, they are not accepting patients who do not live at their [facility]. Thus, ZAYNAB Kirk saw list of
facilities made in [facility] so called the other 3, and only [facility] had a bed for tomorrow. ZAYNAB Kirk spoke to the patient who defer to her sister Agus. Sister Agus then got the other sister on the phone, both were upset not being told the
patient is ready.
Both at different times were yelling at ZAYNAB Kirk. Both eventually calmed down understanding that ZAYNAB Kirk is just the messenger and not the Hospitalist or really Surgery or Cardiology. Both sister want to speak to the Hospitalist so asked "Gabriel"Qasim to call tomorrow. Sisters do not want [facility]. Both were given a whole new list and will provide choices by tomorrow. Patient is Medicare so no Auth is needed when a facility is found and there is a bed. PLAN: SNF.
[2025-05-12] MEDS: LIPITOR 20 MG PO (18:46)
[2025-05-12 19:00] VITALS: BP 130/46
[2025-05-12] MEDS: ELIQUIS 5 MG PO (19:42)
[2025-05-12] MEDS: TESSALON PERLES 100 MG PO (19:56)
[2025-05-12] MEDS: ULTRAM 100 MG PO (21:10)
[2025-05-12] MEDS: SINGULAIR 10 MG PO (21:12)
[2025-05-12] MEDS: XALATAN OPHTHALMIC SOLUTION 1 DROP BOTH EYES (21:12)
[2025-05-12 21:38] LABS: Glucose - Point of Care 174 mg/dl (70-99)
[2025-05-12 23:00] VITALS: BP 122/45
[2025-05-13] MEDS: VENTOLIN NEBULES 2.5 MG INH (00:55)
[2025-05-13] MEDS: TYLENOL 650 MG PO ×5 (01:26→20:16)
[2025-05-13] MEDS: ATIVAN 0.25 MG PO (02:41)
[2025-05-13 03:00] VITALS: BP 141/61
[2025-05-13 03:31] VITALS: BMI 40.5
[2025-05-13] MEDS: TYLENOL PO ×2 (04:14→23:56)
[2025-05-13 06:24] LABS: Hematocrit 31.2 % (37.0-47.0); Hemoglobin 9.9 g/dL (12.0-16.0)
[2025-05-13 06:52] LABS: Blood Urea Nitrogen 34 mg/dl (7-17); Calcium 8.8 mg/dl (8.4-10.2); Carbon Dioxide 31 mmol/L (22-30); Chloride 95 mmol/L (98-107); Estimated Creatinine Clearance 63 ml/min; Glucose 133 mg/dl (70-99); Potassium 4.6 mmol/L (3.5-5.1); Sodium 129 mmol/L (135-145); eGFR 59.12
[2025-05-13] MEDS: DUONEB 3 ML INH ×4 (07:18→17:45)
[2025-05-13] MEDS: PULMICORT 0.5 MG INH ×2 (07:18→17:45)
[2025-05-13] MEDS: SODIUM CHLORIDE 3% FOR INHALATION 1 VIAL INH ×2 (07:19→17:45)
[2025-05-13 07:30] VITALS: BP 127/58
[2025-05-13 07:50] LABS: Glucose - Point of Care 116 mg/dl (70-99)
[2025-05-13] MEDS: NOVOLOG FLEXPEN-LOW RESISTANCE SC ×2 (09:09→12:14)
[2025-05-13] MEDS: MUCINEX 600 MG PO ×2 (09:11→20:15)
[2025-05-13] MEDS: PEPCID 20 MG PO ×2 (09:11→20:16)
[2025-05-13] MEDS: DETROL LA 4 MG PO (09:11)
[2025-05-13] MEDS: DELTASONE 40 MG PO (09:11)
[2025-05-13] MEDS: KEFLEX 500 MG PO ×2 (09:11→20:15)
[2025-05-13] MEDS: ELIQUIS 5 MG PO ×2 (09:11→20:16)
[2025-05-13] MEDS: CARDIZEM 30 MG PO ×2 (09:12→20:15)
[2025-05-13] MEDS: LASIX 40 MG PO (09:12)
[2025-05-13] MEDS: ZOLOFT 100 MG PO (09:12)
[2025-05-13] MEDS: ZYLOPRIM 300 MG PO (09:12)
[2025-05-13] MEDS: ZESTRIL 10 MG PO (09:12)
[2025-05-13] MEDS: HYDROPHOR 1 APPLIC TOPICAL (09:13)
[2025-05-13] MEDS: TRIAMCINOLONE ACETONIDE 0.1% CREAM 1 APPLIC TOPICAL (09:13)
[2025-05-13] MEDS: DESENEX/MITRAZOL/ZEASORB 1 APPLIC TOPICAL ×2 (09:13→21:29)
--- NOTE | 2025-05-13 09:29 | W.PN.HOSP.TC ---
Addendum entered and electronically signed by Shubham Tripp MD 05/13/25 19:56:
Discussed with cardio. Will start amiodarone and cardio wants to watch on cardiac monitoring for 48 hrs. Discussed with CM.
Original Note:
Today's Communication/Plan
-
Cardiology reeval. Discharge plan after cleared by cardio.
Assessment / Plan
Assessment / Plan
Physical exam:
General: No acute distress
HEENT: Normocephalic, Atraumatic and Moist Mucous Membranes
Respiratory: Clear to auscultation bilateral; Negative Rales or Rhonchi
Cardiac: Regular Rhythm and S1/S2
GI: Soft, Nontender and Nondistended
Musculoskeletal: No Clubbing, No Cyanosis. Bilateral lower extremity edema much improved
Neuro: Awake, Alert and Oriented, no neurological deficit
Psych: Calm
A/P:
Patient is 75 years old female with multiple comorbidities admitted for robotic right colectomy for cecal cancer. Hospitalist consulted for dyspnea multifactorial etiology. Discussed with colorectal surgery and she was transferred to our service
on 05/10 given ongoing medical issues. Currently improving overall.
Dyspnea-multifactorial, acute asthma exacerbation + acute exacerbation of heart failure+ acute bronchitis:
Continue steroids--> tolerating oral steroids
Continue diuretics
Completed doxycycline.
Echocardiogram done.
Acapella
Bronchodilators and 3% saline
Pulmonary consult appreciated
Discussed with sister over the phone today at patient request
Plan to discharge once cleared by cardiology-discussed with cardiology in person today.
Paroxysmal A-fib:
Cardiology consult appreciated
Started on calcium channel blockers, Cardizem 30 mg p.o. twice a day
Cardiology also started on Eliquis 5 mg twice a day and discontinued aspirin and Plavix.
Hyponatremia:
Check urine sodium and osmolality
Add fluid restriction
Nausea:
Improved
Antiemetics as needed
Hold GLP-1, Myrbetriq, and Jardiance for now and can restart upon discharge.
Acute on chronic HFpEF and recent TAVR:
Continue oral furosemide 40 mg daily
Admission BNP elevated 1280
Weight down overall
Reviewed echocardiogram
Cecal cancer status post right colectomy:
Postop doing well
Colorectal surgery input appreciated
DVT prophylaxis:
Lovenox SQ
CODE STATUS:
Full code
Total time spent on today's encounter was 35 minutes which included time spent in counseling the patient/family regarding diagnosis and treatment plan as listed above, goals of care, and symptom management. Case was discussed with nursing staff,
specialists, and care coordinators/case management. All labs and imaging personally reviewed by me. Remainder the time spent in detailed review of previous records, lab data, imaging, and other medical provider documentation.
Anticipated Discharge: Within 24 hours
Subjective/Interval History
-
Date of Service: May 13, 2025
Patient does not feel any new complaints. Heart rate goes up to 140 with activity and back up to normal. No chest pain.
Objective Data
-
Labs:
Laboratory Results
05/13/25
06:07
Hgb 9.9 L
Hct 31.2 L
Sodium 129 L
Potassium 4.6
Chloride 95 L
Carbon Dioxide 31 H
BUN 34 H
Creatinine 1.0
Glucose 133 H
Calcium 8.8
Vital Signs:
Vital Signs
Temp Pulse Resp BP Pulse Ox
97.2 F 81 16 127/41 99
05/13/25 07:30 05/13/25 09:12 05/13/25 07:30 05/13/25 09:12 05/13/25 07:30
I&O
05/12/25 05/13/25 05/14/25
06:59 06:59 06:59
Intake Total 620 / 620 0 / 216
Balance 620 / 620 2159 / 2160
[2025-05-13 11:30] VITALS: BP 134/54
[2025-05-13 11:40] LABS: Glucose - Point of Care 125 mg/dl (70-99)
--- NOTE | 2025-05-13 12:07 | W.PN.CARDCBS ---
Today's Communication / Plan
-
Recurrent paroxysms of atrial fibrillation/tachycardia.
Continue Eliquis anticoagulation for stroke prophylaxis.
We discussed consideration for amiodarone 200 mg p.o. 3 times daily to help with rate and rhythm control. This would be short-term hopefully and the patient could be reevaluated by her outside wood fence installer to determine length of time of being on
amiodarone and Eliquis if her paroxysmal atrial fibrillation is related to her postoperative status.
Check TSH
Her echo is stable with preserved EF and stable TAVR.
Dual antiplatelet therapy has been stopped in favor of anticoagulation
She remains euvolemic, continue Lasix 40 mg daily.
Impression / Plan
-
Primary wood fence installer: Dr. Lee of [facility]
Impression:
Cecal mass status post robotic right colectomy 04/28/2025
Acute on chronic heart failure with preserved EF
Acute asthma/bronchitis
Severe status post TAVR 08/2023 at [facility]
Postoperative atrial fibrillation 08/2023, with recurrence 05/09/2025 status post spontaneous conversion to sinus rhythm
GI bleeding/anemia on anticoagulation, Plavix
Hypertension
Hyperlipidemia
Type 2 diabetes
Morbid obesity
echo 09/09/2024 at OSH: Very technically difficult study, Definity used, mild concentric LVH, EF 60 to 65%, no regional wall motion abnormalities noted, status post number 29 mm Evolut transcatheter aortic valve replacement with mean gradient of 13
mmHg, MARIAN 2.1 cm�, no transvalvular AR, no paravalvular AR, moderate to severe MAC, no MR, left atrium mildly enlarged
Echo 05/09/2025: EF 60 to 65%, transcatheter aortic valve present and functioning well, no evidence of significant aortic regurgitation or paravalvular leak with mean aortic gradient 10 mmHg, MAC noted, mild MS, mild to moderate central MR, mild TR,
PAP 24 mmHg
Plan:
Recurrent paroxysms of atrial fibrillation/tachycardia.
Continue Eliquis anticoagulation for stroke prophylaxis.
We discussed consideration for amiodarone 200 mg p.o. 3 times daily to help with rate and rhythm control. This would be short-term hopefully and the patient could be reevaluated by her outside wood fence installer to determine length of time of being on
amiodarone and Eliquis if her paroxysmal atrial fibrillation is related to her postoperative status.
Check TSH
Her echo is stable with preserved EF and stable TAVR.
Dual antiplatelet therapy has been stopped in favor of anticoagulation
She remains euvolemic, continue Lasix 40 mg daily.
Continue pulmonary toilet. Pulmonary signed off.
Continue postoperative care
- Continue PT/OT. Plan is for SNF
Outpatient cardiac follow-up with Dr. Lee
Discussed with primary service and sister via telephone. They were appreciative
Progress Note - Ticket Writer
Subjective
Date of Service: May 13, 2025
Patient seen and examined. Complains of palpitations and intermittent dyspnea
Objective
Labs:
05/13/25 06:07
05/13/25 06:07
Labs
Hgb 9.9 g/dL (12.0-16.0) L 05/13/25 06:07
Hct 31.2 % (37.0-47.0) L 05/13/25 06:07
Plt Count 463 10^3/uL (130-400) H 05/07/25 05:37
PT 13.7 Sec (11.4-14.6) 04/21/25 13:02
INR 1.02 04/21/25 13:02
APTT 35.4 Sec (23.4-35.0) H 04/21/25 13:02
Sodium 129 mmol/L (135-145) L 05/13/25 06:07
Potassium 4.6 mmol/L (3.5-5.1) 05/13/25 06:07
BUN 34 mg/dl (7-17) H 05/13/25 06:07
Creatinine 1.0 mg/dL (0.6-1.0) 05/13/25 06:07
Glucose 133 mg/dl (70-99) H 05/13/25 06:07
Vital Signs and I&O:
Vital Signs
Temp Pulse Resp BP Pulse Ox
98 F 80 16 134/54 97
05/13/25 11:30 05/13/25 11:44 05/13/25 11:44 05/13/25 11:30 05/13/25 11:44
Vital Signs
Temp Pulse Resp BP Pulse Ox
98 F 80 16 134/54 97
05/13/25 11:30 05/13/25 11:44 05/13/25 11:44 05/13/25 11:30 05/13/25 11:44
Intake & Output
05/11/25 05/12/25 05/13/25 05/14/25
06:59 06:59 06:59 06:59
Intake Total 240 / 240 620 / 620 2160 / 2160
Balance 240 / 240 620 / 620 2160 / 2160
Physical Exam
Physical Exam
General: No acute distress, AAOX3
Neck: Negative JVD
Heart: Irregular regular,, Negative S3 positive S1/S2, Negative S4, No murmur
Lungs: CTA b/l, negative wheezes/rales/rhonchi
Abd: Positive BS, NT/ND, neg rebound/rigidity/guarding
Ext: Negative cyanosis/clubbing/edema
Neuro: nonfocal
[2025-05-13 15:30] VITALS: BP 141/55
[2025-05-13] MEDS: PACERONE 200 MG PO ×2 (16:17→21:28)
[2025-05-13 16:52] LABS: Glucose - Point of Care 211 mg/dl (70-99)
[2025-05-13] MEDS: LIPITOR 20 MG PO (17:39)
[2025-05-13] MEDS: NOVOLOG FLEXPEN-LOW RESISTANCE 2 UNITS SC (17:40)
[2025-05-13] MEDS: ULTRAM 50 MG PO (17:44)
[2025-05-13 19:00] VITALS: BP 128/43
[2025-05-13 21:19] LABS: Glucose - Point of Care 222 mg/dl (70-99)
[2025-05-13] MEDS: SINGULAIR 10 MG PO (21:28)
[2025-05-13] MEDS: ULTRAM 100 MG PO (21:29)
[2025-05-13] MEDS: XALATAN OPHTHALMIC SOLUTION 1 DROP BOTH EYES (22:12)
[2025-05-13 23:00] VITALS: BP 124/49
[2025-05-14 03:00] VITALS: BP 128/51
[2025-05-14] MEDS: TYLENOL 650 MG PO ×5 (03:24→19:39)
[2025-05-14 06:00] VITALS: BMI 39.8
[2025-05-14 07:11] LABS: Hematocrit 35.1 % (37.0-47.0); Hemoglobin 10.9 g/dL (12.0-16.0)
[2025-05-14 07:15] LABS: Glucose - Point of Care 102 mg/dl (70-99)
[2025-05-14 07:21] LABS: ALT (SGPT) 20 U/L (0-35); AST (SGOT) 19 U/L (14-36); Albumin 3.7 g/dl (3.5-5.0); Alkaline Phosphatase 104 U/L (38-126); Blood Urea Nitrogen 37 mg/dl (7-17); Calcium 8.9 mg/dl (8.4-10.2); Carbon Dioxide 30 mmol/L (22-30); Chloride 96 mmol/L (98-107); Estimated Creatinine Clearance 70 ml/min; Glucose 100 mg/dl (70-99); Magnesium 2.3 mg/dl (1.6-2.3); Potassium 4.3 mmol/L (3.5-5.1); Sodium 131 mmol/L (135-145); Total Protein 6.2 g/dl (6.3-8.2); eGFR > 60.00
[2025-05-14] MEDS: PULMICORT 0.5 MG INH ×2 (07:25→19:43)
[2025-05-14] MEDS: SODIUM CHLORIDE 3% FOR INHALATION 1 VIAL INH ×2 (07:25→19:43)
[2025-05-14] MEDS: DUONEB 3 ML INH ×4 (07:25→19:43)
[2025-05-14 07:49] LABS: TSH 2.49 uIU/ml (0.47-4.68)
[2025-05-14 07:56] VITALS: BP 128/47
[2025-05-14] MEDS: ZYLOPRIM 300 MG PO (08:11)
[2025-05-14] MEDS: DETROL LA 4 MG PO (08:11)
[2025-05-14] MEDS: DELTASONE 40 MG PO (08:11)
[2025-05-14] MEDS: LASIX 40 MG PO (08:11)
[2025-05-14] MEDS: PEPCID 20 MG PO ×2 (08:11→19:39)
[2025-05-14] MEDS: MUCINEX 600 MG PO ×2 (08:11→19:40)
[2025-05-14] MEDS: CARDIZEM 30 MG PO ×2 (08:11→19:36)
[2025-05-14] MEDS: ELIQUIS 5 MG PO ×2 (08:12→19:36)
[2025-05-14] MEDS: ZOLOFT 100 MG PO (08:12)
[2025-05-14] MEDS: PACERONE 200 MG PO ×2 (08:12→16:32)
[2025-05-14] MEDS: HYDROPHOR 1 APPLIC TOPICAL (08:12)
[2025-05-14] MEDS: ZESTRIL 10 MG PO (08:12)
[2025-05-14] MEDS: KEFLEX 500 MG PO ×2 (08:12→19:36)
[2025-05-14] MEDS: TRIAMCINOLONE ACETONIDE 0.1% CREAM 1 APPLIC TOPICAL (08:13)
[2025-05-14] MEDS: NOVOLOG FLEXPEN-LOW RESISTANCE SC ×2 (08:13→12:17)
[2025-05-14] MEDS: DESENEX/MITRAZOL/ZEASORB 1 APPLIC TOPICAL ×2 (08:13→19:39)
[2025-05-14] MEDS: ANESTHETIC LOZENGE 1 LOZENGE PO (08:18)
--- NOTE | 2025-05-14 11:07 | W.PN.CARDCBS ---
Today's Communication / Plan
-
Recurrent paroxysms of atrial fibrillation/tachycardia have improved with addition of amiodarone.
Continue Eliquis anticoagulation for stroke prophylaxis.
Reduce amiodarone to 200 mg daily. QTc stable. Amiodarone could be short-term hopefully and the patient could be reevaluated by her outside district gauger to determine length of time of being on amiodarone and Eliquis if her paroxysmal atrial
fibrillation is related to her postoperative status.
TSH is normal
Her echo is stable with preserved EF and stable TAVR.
Dual antiplatelet therapy has been stopped in favor of anticoagulation
She remains euvolemic, continue Lasix 40 mg daily.
Stable for SNF from cardiac standpoint.
Outpatient cardiac follow-up with Dr. Lee
Impression / Plan
-
Primary district gauger: Dr. Lee of [facility]
Impression:
Cecal mass status post robotic right colectomy 04/28/2025
Acute on chronic heart failure with preserved EF
Acute asthma/bronchitis
Severe status post TAVR 08/2023 at [facility]
Postoperative atrial fibrillation 08/2023, with recurrence 05/09/2025 status post spontaneous conversion to sinus rhythm
GI bleeding/anemia on anticoagulation, Plavix
Hypertension
Hyperlipidemia
Type 2 diabetes
Morbid obesity
echo 09/09/2024 at OSH: Very technically difficult study, Definity used, mild concentric LVH, EF 60 to 65%, no regional wall motion abnormalities noted, status post number 29 mm Evolut transcatheter aortic valve replacement with mean gradient of 13
mmHg, MARIAN 2.1 cm�, no transvalvular AR, no paravalvular AR, moderate to severe MAC, no MR, left atrium mildly enlarged
Echo 05/09/2025: EF 60 to 65%, transcatheter aortic valve present and functioning well, no evidence of significant aortic regurgitation or paravalvular leak with mean aortic gradient 10 mmHg, MAC noted, mild MS, mild to moderate central MR, mild TR,
PAP 24 mmHg
Plan:
Recurrent paroxysms of atrial fibrillation/tachycardia have improved with addition of amiodarone.
Continue Eliquis anticoagulation for stroke prophylaxis.
Reduce amiodarone to 200 mg daily. QTc stable. Amiodarone could be short-term hopefully and the patient could be reevaluated by her outside district gauger to determine length of time of being on amiodarone and Eliquis if her paroxysmal atrial
fibrillation is related to her postoperative status.
TSH is normal
Her echo is stable with preserved EF and stable TAVR.
Dual antiplatelet therapy has been stopped in favor of anticoagulation
She remains euvolemic, continue Lasix 40 mg daily.
Stable for SNF from cardiac standpoint.
Outpatient cardiac follow-up with Dr. Lee
Discussed with primary service
Progress Note - Footwear Stitcher
Subjective
Date of Service: May 14, 2025
Pt seen and examined. No complaints. No chest pain or shortness of breath.
Objective
Labs:
05/14/25 06:42
05/14/25 06:42
Labs
Hgb 10.9 g/dL (12.0-16.0) L 05/14/25 06:42
Hct 35.1 % (37.0-47.0) L 05/14/25 06:42
Plt Count 463 10^3/uL (130-400) H 05/07/25 05:37
PT 13.7 Sec (11.4-14.6) 04/21/25 13:02
INR 1.02 04/21/25 13:02
APTT 35.4 Sec (23.4-35.0) H 04/21/25 13:02
Sodium 131 mmol/L (135-145) L 05/14/25 06:42
Potassium 4.3 mmol/L (3.5-5.1) 05/14/25 06:42
BUN 37 mg/dl (7-17) H 05/14/25 06:42
Creatinine 0.9 mg/dL (0.6-1.0) 05/14/25 06:42
Glucose 100 mg/dl (70-99) H 05/14/25 06:42
Vital Signs and I&O:
Vital Signs
Temp Pulse Resp BP Pulse Ox
97.8 F 73 16 128/47 97
05/14/25 07:56 05/14/25 08:12 05/14/25 07:56 05/14/25 08:12 05/14/25 07:56
Vital Signs
Temp Pulse Resp BP Pulse Ox
97.8 F 73 16 128/47 97
05/14/25 07:56 05/14/25 08:12 05/14/25 07:56 05/14/25 08:12 05/14/25 07:56
Intake & Output
05/12/25 05/13/25 05/14/25 05/15/25
06:59 06:59 06:59 06:59
Intake Total 620 / 620 2160 / 2160 1440 / 1440
Balance 620 / 620 2160 / 2160 1440 / 1440
Physical Exam
Physical Exam
General: No acute distress, AAOX3
Neck: Negative JVD
Heart: Regular, Negative S3 positive S1/S2, Negative S4, No murmur
Lungs: CTA b/l, negative wheezes/rales/rhonchi
Abd: Positive BS, NT/ND, neg rebound/rigidity/guarding
Ext: Negative cyanosis/clubbing/edema
Neuro: nonfocal
[2025-05-14 12:17] LABS: Glucose - Point of Care 135 mg/dl (70-99)
--- NOTE | 2025-05-14 12:20 | W.PN.HOSP.TC ---
Today's Communication/Plan
-
See plan
Assessment / Plan
Assessment / Plan
Physical exam:
General: No acute distress
HEENT: Normocephalic, Atraumatic and Moist Mucous Membranes
Respiratory: Clear to auscultation bilateral; Negative Rales or Rhonchi
Cardiac: Regular Rhythm and S1/S2
GI: Soft, Nontender and Nondistended
Musculoskeletal: No Clubbing, No Cyanosis. Bilateral lower extremity edema much improved
Neuro: Awake, Alert and Oriented, no neurological deficit
Psych: Calm
A/P:
Patient is 75 years old female with multiple comorbidities admitted for robotic right colectomy for cecal cancer. Hospitalist consulted for dyspnea multifactorial etiology. Discussed with colorectal surgery and she was transferred to our service
on 05/10 given ongoing medical issues. Currently improving overall.
Dyspnea-multifactorial, acute asthma exacerbation + acute exacerbation of heart failure+ acute bronchitis:
Continue steroids--> tolerating oral steroids and continue tapering.
Continue diuretics
Completed doxycycline.
Echocardiogram done.
Acapella
Bronchodilators and 3% saline
Pulmonary consult appreciated
Discussed with sister over the phone yesterday at patient request
Paroxysmal A-fib:
Cardiology consult appreciated
Started on calcium channel blockers, Cardizem 30 mg p.o. twice a day
Cardiology also started on Eliquis 5 mg twice a day and discontinued aspirin and Plavix.
Cardiology also started her on amiodarone 200 mg 3 times daily and taper per their recommendations.
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
urine sodium 120 and urine osmolality 420
Continue oral fluid restriction
Sodium 131 today
Nausea:
Improved
Antiemetics as needed
Hold GLP-1, Myrbetriq, and Jardiance for now and can restart upon discharge.
Acute on chronic HFpEF and recent TAVR:
Continue oral furosemide 40 mg daily
Admission BNP elevated 1280
Weight down overall
Reviewed echocardiogram
Cecal cancer status post right colectomy:
Postop doing well
Colorectal surgery input appreciated
DVT prophylaxis:
Lovenox SQ
CODE STATUS:
Full code
Total time spent on today's encounter was 35 minutes which included time spent in counseling the patient/family regarding diagnosis and treatment plan as listed above, goals of care, and symptom management. Case was discussed with nursing staff,
specialists, and care coordinators/case management. All labs and imaging personally reviewed by me. Remainder the time spent in detailed review of previous records, lab data, imaging, and other medical provider documentation.
Anticipated Discharge: Within 24 hours
Subjective/Interval History
-
Date of Service: May 14, 2025
No chest pain or shortness of breath. Heart rate improving. Feels better overall.
Objective Data
-
Labs:
Laboratory Results
05/14/25
06:42
Hgb 10.9 L
Hct 35.1 L
Sodium 131 L
Potassium 4.3
Chloride 96 L
Carbon Dioxide 30
BUN 37 H
Creatinine 0.9
Glucose 100 H
Calcium 8.9
Total Bilirubin 1.0
AST 19
ALT 20
Alkaline Phosphatase 104
Vital Signs:
Vital Signs
Temp Pulse Resp BP Pulse Ox
97.8 F 74 18 128/47 97
05/14/25 07:56 05/14/25 11:34 05/14/25 11:34 05/14/25 08:12 05/14/25 11:37
I&O
05/13/25 05/14/25 05/15/25
06:59 06:59 06:59
Intake Total 2160 / 2160 1440 / 1440
Balance 2160 / 2160 1440 / 1440
[2025-05-14 16:30] VITALS: BP 142/60
[2025-05-14] MEDS: LIPITOR 20 MG PO (17:10)
[2025-05-14 17:16] LABS: Glucose - Point of Care 170 mg/dl (70-99)
[2025-05-14] MEDS: NOVOLOG FLEXPEN-LOW RESISTANCE 1 UNITS SC (17:16)
[2025-05-14 19:54] VITALS: BP 135/53
[2025-05-14] MEDS: XALATAN OPHTHALMIC SOLUTION 1 DROP BOTH EYES (21:26)
[2025-05-14] MEDS: SINGULAIR 10 MG PO (21:26)
[2025-05-14] MEDS: ULTRAM 50 MG PO (21:26)
[2025-05-14 22:21] LABS: Glucose - Point of Care 183 mg/dl (70-99)
[2025-05-14 23:16] VITALS: BP 141/54
[2025-05-15] MEDS: TYLENOL PO ×5 (00:06→15:49)
[2025-05-15 03:13] VITALS: BP 120/45
[2025-05-15] MEDS: ATIVAN 0.25 MG PO (04:17)
[2025-05-15] MEDS: TESSALON PERLES 100 MG PO ×2 (04:17→15:47)
[2025-05-15 04:27] VITALS: BMI 39.8
[2025-05-15 07:20] LABS: Glucose - Point of Care 106 mg/dl (70-99)
[2025-05-15] MEDS: DUONEB 3 ML INH ×2 (07:34→15:04)
[2025-05-15] MEDS: PULMICORT 0.5 MG INH (07:34)
[2025-05-15] MEDS: SODIUM CHLORIDE 3% FOR INHALATION 1 VIAL INH (07:35)
[2025-05-15] MEDS: NOVOLOG FLEXPEN-LOW RESISTANCE SC ×2 (08:00→12:31)
[2025-05-15 08:09] VITALS: BP 146/61
[2025-05-15] MEDS: ZYLOPRIM 300 MG PO (08:53)
[2025-05-15] MEDS: DELTASONE 30 MG PO (08:53)
[2025-05-15] MEDS: CARDIZEM 30 MG PO (08:53)
[2025-05-15] MEDS: ZESTRIL 10 MG PO (08:54)
[2025-05-15] MEDS: MUCINEX 600 MG PO (08:54)
[2025-05-15] MEDS: LASIX 40 MG PO (08:54)
[2025-05-15] MEDS: ZOLOFT 100 MG PO (08:54)
[2025-05-15] MEDS: PACERONE 200 MG PO (08:54)
[2025-05-15] MEDS: KEFLEX 500 MG PO (08:55)
[2025-05-15] MEDS: PEPCID 20 MG PO (08:55)
[2025-05-15] MEDS: ELIQUIS 5 MG PO (08:55)
[2025-05-15] MEDS: TYLENOL 650 MG PO (08:55)
[2025-05-15] MEDS: DETROL LA 4 MG PO (08:55)
[2025-05-15] MEDS: DESENEX/MITRAZOL/ZEASORB 1 APPLIC TOPICAL (08:56)
[2025-05-15] MEDS: HYDROPHOR 1 APPLIC TOPICAL (08:56)
[2025-05-15] MEDS: TRIAMCINOLONE ACETONIDE 0.1% CREAM 1 APPLIC TOPICAL (08:57)
[2025-05-15] MEDS: ZOFRAN 4 MG IV (08:59)
--- NOTE | 2025-05-15 11:12 | W.DCSUMMARY ---
Discharge Summary
Discharge Data
Date of Admission: 04/28/25
Date of Discharge: 05/15/25
-
Pending Results: No
Hospital Course
Primary diagnosis:
Status post right hemicolectomy for cecal cancer
Postop complicated by acute asthma exacerbation
Postop paroxysmal atrial fibrillation
Secondary diagnosis:
Diabetes mellitus type 2
History of heart failure with preserved EF
History of severe aortic stenosis status post TAVR in 2023
Postoperative atrial fibrillation
Essential hypertension
Hyperlipidemia
Morbid obesity
Hospital course:
Patient came in for elective right hemicolectomy for cecal cancer. No immediate surgical complication but she had asthma flare which had a slow improvement. She was seen by pulmonary. She was treated with steroids which are now tapering. She is
also put on steroid nebulizers along with as bronchodilators. During same time she also went into paroxysmal atrial fibrillation for which she was seen by cardiology. Cardizem was increased for rate control and Amio was initiated. Since this is
again in the setting of postop they are hoping she may be able to come off Amio after short treatments. She was on aspirin and Plavix which were switched to Eliquis for anticoagulation for A-fib.
Today she feels better. Denies any chest pain, palpitation or shortness of breath. Improved wheezing and cough. Afebrile. Pulse was 75 blood pressure 146/61. Weight improved to 246 pounds which is below her baseline weight of 255 pounds.
Occasional wheeze heard. No respiratory distress. Abdomen soft. Improved lower extremity edema. Paroxysmal A-fib but not sustained on telemetry. Asymptomatic. She is on Amio and Eliquis. Follow-up with cardiology after discharge in 2 weeks
time.
Deemed medically stable for discharge to rehab.
Consultants on board:
Colorectal surgery-Fernando Marshall
Pulmonary-Kevin Madrid
Cardiology-Dr. Tejinder Parra
Portions of this chart may have been created with voice recognition software. Occasional wrong word or 'sound alike' substitutions may have occurred due to the inherent limitations of voice recognition software.
Discharge Plan
-
Patient Disposition: Jail/SNF
Discharge Diagnosis/Procedures: Robotic right colectomy; post op Asthma exacerbation ;Paroxysmal Afib
Diet: Regular and Low Residue
Activity: No strenuous activity
Additional Activity: No lifting over 10lbs (gallon of milk)
Driving Restrictions: No driving for 1 week
Bathing Restrictions: OK to Shower
Other Services: PT and OT
Wound Care: Allow glue to naturally fall off. Do not pick at incisions.
Activity Restrictions/Additional Instructions:
Aquaphor ointment to dry skin and Le's daily.
Miconazole powder to abdominal/groin folds, nancy/buttocks/coccyx twice a day.
bilateral knee high Иван wraps as tolerated; rewrap daily and prn skin check/skin care.
Pressure redistributing chair cushion (i.e. Air chair cushion).
Follow up with colorectal surgeon.
Follow up with wound care center if needed, .
Referrals:
Fernando Álvarez MD [Active, ColoRectal] - in two weeks
Dallin Lopez DO [Family Provider, Family Practice]
Tejinder Parra DO [Active, Cardiology] - in two weeks
Sepncer Kendall MD [Active, Pulmonary Medicine]
Referral Note: 1-2 weeks post rehab
TURNAROUND ENGINEER or MD
Additional Discharge Medication Instructions: Tylenol or Ibuprofen as needed for pain. Maximum dose of Tylenol is 4,000mg in 24 hours. Maximum dose of Ibuprofen is 3,200mg in 24 hours.
Antifungal to groin as needed for irritation.
Prescriptions:
New
tramadol 50 mg Tablet
50 mg PO Q4HPRN PRN (Reason: pain) Qty: 20 0RF
diltiazem HCl 30 mg Tablet
30 mg PO BID Qty: 1 0RF
prednisone 10 mg tablet
10 mg PO DIRECTED Qty: 1 0RF
Rx Instructions:
20mg daily starting tomorrow. Taper by 10mg every 3 days to off.
furosemide 40 mg Tablet
40 mg PO DAILY Qty: 1 0RF
ipratropium-albuterol 0.5 mg-3 mg(2.5 mg base)/3 mL Solution For Nebulization
3 ml inhalation R QID Qty: 1 0RF
tolterodine 4 mg Capsule,Extended Release 24hr
4 mg PO DAILY Qty: 1 0RF
Eliquis 5 mg Tablet
5 mg PO BID Qty: 1 0RF
guaifenesin 600 mg Tablet Extended Release 12hr
600 mg PO Q12 Qty: 1 0RF
albuterol sulfate 2.5 mg /3 mL (0.083 %) Solution For Nebulization
2.5 mg inhalation R Q4HPRN PRN (Reason: SOB) Qty: 1 0RF
amiodarone [Pacerone] 200 mg Tablet
200 mg PO DAILY Qty: 1 0RF
benzonatate 100 mg Capsule
100 mg PO TIDPRN PRN (Reason: cough) Qty: 1 0RF
budesonide 0.5 mg/2 mL Suspension For Nebulization
0.5 mg inhalation R BID Qty: 1 0RF
ondansetron 4 mg tablet,disintegrating
4 mg PO DAILY PRN (Reason: nausea) 3 Days Qty: 1 0RF
Continued
atorvastatin 20 mg Tablet
20 mg PO QPM
tizanidine 2 mg Tablet
2 mg PO TID PRN (Reason: Spasms)
sertraline 100 mg Tablet
100 mg PO DAILY
acetaminophen 650 mg Tablet Extended Release
1,300 mg PO PRN PRN (Reason: Pain)
famotidine 20 mg Tablet
20 mg PO BID
lorazepam 0.5 mg Tablet
0.25 mg PO BID PRN (Reason: Anxiety)
lisinopril 10 mg Tablet
10 mg PO DAILY
cephalexin 500 mg Tablet
500 mg PO BID
montelukast 10 mg Tablet
10 mg PO HS
allopurinol 300 mg Tablet
300 mg PO DAILY
Hair,Skin and Nails Tablet
2 tab PO DAILY
coQ10 (ubiquinol) 100 mg Capsule
300 mg PO HS
mirabegron [Myrbetriq] 50 mg Tablet Extended Release 24 Hr
50 mg PO DAILY
PreserVision AREDS-2 250-90-40-1 mg Capsule
1 tab PO BID
latanoprost (PF) 0.005 % Dropperette
1 drp BOTH EYES HS
Ozempic 0.25 mg or 0.5 mg (2 mg/3 mL) Pen Injector
0.25 mg SC FR
Comfry Oil
1 applic topical PRN PRN (Reason: dry skin)
Comfry Salve
1 dose topical PRN PRN (Reason: dry skin)
Instaflex
1 tab PO DAILY
Lymph Move
5 ml PO DAILY
dandelion root
0.7 ml PO DAILY
triamcinolone acetonide 0.1 % Cream
1 applic TOPICAL DAILY
tramadol 50 mg Tablet
50 mg PO Q6H PRN (Reason: pain) Qty: 20 0RF
Discontinued
fluconazole 100 mg Tablet
100 mg PO DAILY PRN (Reason: Yeast infection)
clopidogrel [Plavix] 75 mg Tablet
75 mg PO DAILY
amlodipine 5 mg Tablet
5 mg PO DAILY
furosemide [Lasix] 20 mg Tablet
20 mg PO DAILY PRN (Reason: Lymphedema)
Sutab 1.479-0.188- 0.225 gram Tablet
0 tab PO PRE PROCEDURE
metronidazole [Flagyl] 500 mg Tablet
500 mg PO PRE PROCEDURE
neomycin 500 mg Tablet
1 g PO PRE PROCEDURE
albuterol sulfate 90 mcg/actuation Hfa Aerosol Inhaler
2 puff INHALATION PRN PRN (Reason: SOB, wheezes)
Discharge Orders:
Discharge Patient (As Directed); Ordered 05/15/25
Ordered By: Sage Chiu
Discharge Date and Time
Print Language: KOSOVAN
[2025-05-15 11:47] VITALS: BP 127/54; PULSE 74
[2025-05-15] MEDS: DUONEB INH (11:50)
[2025-05-15 12:29] LABS: Glucose - Point of Care 132 mg/dl (70-99)
[2025-05-15 12:49] VITALS: BP 119/42
--- NOTE | 2025-05-15 13:08 | CM ---
Patient will d/c to [facility] today, confirmed bed availability w/ [facility]/admissions.
Spoke w/ patient and her sister, agreeable to d/c to [place] today
IMM verbally reviewed, copy provided, copy on chart
Ambulance transport scheduled for 3:45 pm
[facility]
Report: [phone]

Plan: D/c to [facility]
[2025-05-15 16:08] VITALS: BP 109/47
== END 2025-05-15 16:31 | DRG 329 ==
LOC: 2 SOUTH 06:08
PROVIDERS: Hospitalist; Physician Assistant; Registered Nurse; ADMITTING PHYSICIAN Surgery; ATTENDING PHYSICIAN Internal Medicine; CONSULT PHYSICIAN Internal Medicine; CONSULT PHYSICIAN Nuclear Medicine Nuclear Cardiology; FAMILY PHYSICIAN Family Medicine
PROC: 0DTF4ZZ Resection of Right Large Intestine, Percutaneous Endoscopic Approach (ICD-10-PCS; 2025-04-28)
PROC: 8E0W4CZ Robotic Assisted Procedure of Trunk Region, Percutaneous Endoscopic Approach (ICD-10-PCS; 2025-04-28)
DX: C18.0 Malignant neoplasm of cecum (principal); I50.33 Acute on chronic diastolic (congestive) heart failure; J45.901 Unspecified asthma with (acute) exacerbation; Z68.41 Body mass index [BMI] 40.0-44.9, adult; E87.1 Hypo-osmolality and hyponatremia; K76.0 Fatty (change of) liver, not elsewhere classified; I44.7 Left bundle-branch block, unspecified; E11.9 Type 2 diabetes mellitus without complications; E78.00 Pure hypercholesterolemia, unspecified; J20.9 Acute bronchitis, unspecified; I11.0 Hypertensive heart disease with heart failure; K21.9 Gastro-esophageal reflux disease without esophagitis; N32.81 Overactive bladder; I48.0 Paroxysmal atrial fibrillation; R11.0 Nausea; R00.0 Tachycardia, unspecified; E66.01 Morbid (severe) obesity due to excess calories; Z95.2 Presence of prosthetic heart valve; Z91.041 Radiographic dye allergy status; Z91.02 Food additives allergy status; Z91.048 Other nonmedicinal substance allergy status; Z79.02 Long term (current) use of antithrombotics/antiplatelets; Z79.01 Long term (current) use of anticoagulants; Z79.899 Other long term (current) drug therapy; Z79.85 Long-term (current) use of injectable non-insulin antidiabetic drugs; Z11.52 Encounter for screening for COVID-19; Z79.2 Long term (current) use of antibiotics
CPT/HCPCS: 36415; 71046; 80048; 80053; 82378; 82962; 83036; 83735; 83880; 83935; 84300; 84443; 84484; 85014; 85018; 85025; 85027; 85610; 85730; 86850; 86900; 86901; 87070; 87205; 87502; 87811; 88309; 88341; 88342; 93005; 93306; 93970; 94640; 97110; 97116; 97163; 97167; 97530; 97535; J1335; Q9950